=== PATIENT | male | born 1940 | race Caucasian/White ===

== ENCOUNTER → 2016-03-28 | Outpatient (REF) | payer MEDICARE ==
[~2016-03-28] MED LIST: /AMLO25TA PO; /ONDA4TA PO; /PANT40TA PO; ALBU17IN INH; AMLO10TA2 PO; AUGM875T27 PO; CARA1TAB2 PO; CREO24CA PO; FISHCAP PO; FOLI1TAB86 PO; FURO20TA2 PO; GENE10SO PO; IRON CR OD; LASI20TA PO; MAGN250T PO; MEGE400SUS PO; NYST50SS SS; PANT40TA2 PO; PERCOCET PO; POTA20TA PO; PRIL40CA PO; PROP20TA5 PO; SERT-138 PO; SIME40TA PO; SPIR50TA2 PO; THIA100T PO; VITA100T92 PO; VITAMIN D PO; VITATAB11 PO; VITMTA PO; ZYMA0.5S OD; [UNRECOGNIZED DRUG - CODE] INH; [UNRECOGNIZED DRUG - MIXTURE] PO
[2016-03-28 18:32] LABS: ALBUMIN 3.2 GM/DL (3.2-5.2); ALBUMIN/GLOBULIN RATIO 0.65 (1.00-1.93); ALKALINE PHOSPHATASE 86 U/L (45-117); ALT/SGPT 23 U/L (12-78); ANION GAP 7 MEQ/L (8-16); AST/SGOT 28 U/L (15-37); BILIRUBIN,TOTAL 0.7 MG/DL (0.2-1.0); BLOOD UREA NITROGEN 20 MG/DL (7-18); CARBON DIOXIDE LEVEL 29 MEQ/L (21-32); CHLORIDE LEVEL 102 MEQ/L (98-107); CREATININE FOR GFR 1.09 MG/DL (0.70-1.30); GLOMERULAR FILTRATION RATE > 60.0 (>42); GLUCOSE, FASTING 83 MG/DL (83-110); POTASSIUM SERUM 4.1 MEQ/L (3.5-5.1); SODIUM LEVEL 138 MEQ/L (136-145); TOTAL PROTEIN 8.1 GM/DL (6.4-8.2)
[2016-03-28 18:52] LABS: BASO % 0.4 % (0.0-1.0); EOS # 0.5 K/mm3 (0.0-0.50); EOS % 9.4 % (0.0-3.0); LARGE UNSTAINED CELL # 0.1 K/mm3 (0.0-0.4); LARGE UNSTAINED CELL % 1.8 % (0.0-4.0); LYMPH # 1.2 K/mm3 (1.5-4.5); LYMPH % 23.7 % (24.0-44.0); MEAN CORPUSCULAR HEMOGLOBIN 33.1 pg (27.0-33.0); MEAN CORPUSCULAR HGB CONC 33.4 g/dl (32.0-36.5); MEAN CORPUSCULAR VOLUME 99.1 fl (80.0-96.0); MONO # 0.3 K/mm3 (0.0-0.8); MONO % 5.7 % (0.0-5.0); NEUTROPHILS # 2.9 K/mm3 (1.8-7.7); RED CELL DISTRIBUTION WIDTH 14.1 % (11.5-14.5); WHITE BLOOD COUNT 4.9 K/mm3 (4.0-10.0)
[2016-03-28 18:54] LABS: PLATELET COUNT, AUTOMATED 90 k/mm3 (150-450)
== END ==
LOC: M SFHCLERA 15:15
PROVIDERS: ATTEND Family Medicine
DX: K70.30 Alcoholic cirrhosis of liver without ascites (principal); I10 Essential (primary) hypertension
CPT/HCPCS: 80053; 82140; 85025; G0463

== ENCOUNTER → 2016-06-26 | Outpatient (REF) | payer MEDICARE ==
[2016-06-26 18:59] LABS: BASO % 0.7 % (0.0-1.0); EOS # 0.4 K/mm3 (0.0-0.50); EOS % 7.3 % (0.0-3.0); LARGE UNSTAINED CELL # 0.1 K/mm3 (0.0-0.4); LYMPH % 17.9 % (24.0-44.0); MEAN CORPUSCULAR HEMOGLOBIN 35.1 pg (27.0-33.0); MEAN CORPUSCULAR HGB CONC 36.1 g/dl (32.0-36.5); MEAN CORPUSCULAR VOLUME 97.4 fl (80.0-96.0); MONO # 0.3 K/mm3 (0.0-0.8); NEUTROPHILS # 3.7 K/mm3 (1.8-7.7); RED CELL DISTRIBUTION WIDTH 13.8 % (11.5-14.5); WHITE BLOOD COUNT 5.5 K/mm3 (4.0-10.0)
[2016-06-26 19:04] LABS: PLATELET COUNT, AUTOMATED 97 k/mm3 (150-450)
[2016-06-26 19:05] LABS: ALBUMIN 3.2 GM/DL (3.2-5.2); ALBUMIN/GLOBULIN RATIO 0.71 (1.00-1.93); ALKALINE PHOSPHATASE 83 U/L (45-117); ALT/SGPT 25 U/L (12-78); ANION GAP 7 MEQ/L (8-16); AST/SGOT 30 U/L (15-37); BILIRUBIN,TOTAL 0.8 MG/DL (0.2-1.0); BLOOD UREA NITROGEN 12 MG/DL (7-18); CALCIUM LEVEL 8.6 MG/DL (8.8-10.2); CARBON DIOXIDE LEVEL 28 MEQ/L (21-32); CHLORIDE LEVEL 102 MEQ/L (98-107); CREATININE FOR GFR 1.22 MG/DL (0.70-1.30); GLOMERULAR FILTRATION RATE > 60.0 (>42); GLUCOSE, FASTING 88 MG/DL (83-110); POTASSIUM SERUM 4.4 MEQ/L (3.5-5.1); SODIUM LEVEL 137 MEQ/L (136-145); TOTAL PROTEIN 7.7 GM/DL (6.4-8.2)
== END ==
LOC: M SFHCLERA 15:57
PROVIDERS: ATTEND Family Medicine
DX: K70.30 Alcoholic cirrhosis of liver without ascites (principal); I10 Essential (primary) hypertension
CPT/HCPCS: 80053; 82140; 82977; 85025; G0463

== ENCOUNTER → 2017-06-16 | Outpatient (REF) | payer MEDICARE, OTHER ==
[2017-06-16 13:08] LABS: APPEARANCE, URINE CLOUDY (CLEAR); BACTERIA, URINE AUTO NEGATIVE (NEGATIVE); BILIRUBIN, URINE AUTO NEGATIVE (NEGATIVE); BLOOD, URINE BLOOD NEGATIVE (NEGATIVE); COLOR, URINE AMBER (YELLOW); GLUCOSE, URINE (UA) AUTO NEGATIVE (NEGATIVE); KETONE, URINE AUTO NEGATIVE (NEGATIVE); LEUKOCYTE ESTERASE, URINE AUTO NEGATIVE (NEGATIVE); MUCUS, URINE SMALL (NEGATIVE); NITRITE, URINE AUTO NEGATIVE (NEGATIVE); PROTEIN, URINE AUTO NEGATIVE (NEGATIVE); RBC, URINE AUTO 11 /HPF (0-3); SPECIFIC GRAVITY URINE AUTO 1.019 (1.002-1.035); SQUAMOUS EPITHELIAL CELL UR AU 0 /HPF (0-6); WBC, URINE AUTO 3 /HPF (0-3)
== END ==
LOC: M SMT 12:44
DX: N32.89 Other specified disorders of bladder (principal)
CPT/HCPCS: 81001

== ENCOUNTER → 2017-06-25 | Outpatient (REF) | payer MEDICARE, OTHER ==
[2017-06-25 13:58] LABS: APPEARANCE, URINE CLOUDY (CLEAR); BACTERIA, URINE AUTO NEGATIVE (NEGATIVE); BILIRUBIN, URINE AUTO NEGATIVE (NEGATIVE); BLOOD, URINE BLOOD NEGATIVE (NEGATIVE); COLOR, URINE AMBER (YELLOW); GLUCOSE, URINE (UA) AUTO NEGATIVE (NEGATIVE); KETONE, URINE AUTO NEGATIVE (NEGATIVE); LEUKOCYTE ESTERASE, URINE AUTO NEGATIVE (NEGATIVE); MUCUS, URINE SMALL (NEGATIVE); NITRITE, URINE AUTO NEGATIVE (NEGATIVE); PROTEIN, URINE AUTO NEGATIVE (NEGATIVE); RBC, URINE AUTO 4 /HPF (0-3); SPECIFIC GRAVITY URINE AUTO 1.018 (1.002-1.035); SQUAMOUS EPITHELIAL CELL UR AU 0 /HPF (0-6); WBC, URINE AUTO 0 /HPF (0-3)
== END ==
LOC: M SMT 13:14
DX: N32.89 Other specified disorders of bladder (principal); Z79.899 Other long term (current) drug therapy
CPT/HCPCS: 81001

== ENCOUNTER → 2017-09-03 | Outpatient (REF) | payer MEDICARE, OTHER ==
[2017-09-03 18:27] LABS: APPEARANCE, URINE CLOUDY (CLEAR); BACTERIA, URINE AUTO 1+ (NEGATIVE); BILIRUBIN, URINE AUTO NEGATIVE (NEGATIVE); BLOOD, URINE BLOOD 3+ (NEGATIVE); COLOR, URINE AMBER (YELLOW); GLUCOSE, URINE (UA) AUTO NEGATIVE (NEGATIVE); KETONE, URINE AUTO NEGATIVE (NEGATIVE); LEUKOCYTE ESTERASE, URINE AUTO 3+ (NEGATIVE); MUCUS, URINE SMALL (NEGATIVE); NITRITE, URINE AUTO POSITIVE (NEGATIVE); PROTEIN, URINE AUTO 1+ mg/dL (NEGATIVE); RBC, URINE AUTO 58 /HPF (0-3); SPECIFIC GRAVITY URINE AUTO 1.013 (1.002-1.035); SQUAMOUS EPITHELIAL CELL UR AU 0 /HPF (0-6); UROBILINOGEN, URINE AUTO 0.2 mg/dL (0.0-2.0); WBC, URINE AUTO 40 /HPF (0-3)
== END ==
LOC: M SMT 17:16
DX: R82.90 Unspecified abnormal findings in urine (principal)
CPT/HCPCS: 81001

== ENCOUNTER → 2017-09-11 | Outpatient (REF) | payer MEDICARE ==
[2017-09-11 20:01] LABS: BASO # 0.1 10^3/uL (0.0-0.2); BASO % 0.7 % (0.0-1.0); EOS # 0.6 10^3/uL (0.0-0.50); EOS % 6.5 % (0.0-3.0); HEMATOCRIT 35.5 % (42.0-52.0); HEMOGLOBIN 11.6 g/dl (13.5-17.5); IMMATURE GRANULOCYTE % 0.3 % (0-3.0); LYMPH # 1.6 10^3/uL (1.5-4.5); LYMPH % 18.1 % (24.0-44.0); MEAN CORPUSCULAR HEMOGLOBIN 31.4 pg (27.0-33.0); MEAN CORPUSCULAR HGB CONC 32.7 g/dl (32.0-36.5); MEAN CORPUSCULAR VOLUME 95.9 fl (80.0-96.0); MONO # 0.4 10^3/uL (0.0-0.8); MONO % 4.8 % (0.0-5.0); NEUTROPHILS # 6.1 10^3/uL (1.8-7.7); NEUTROPHILS % 69.6 % (36.0-66.0); PLATELET COUNT, AUTOMATED 102 10^3/uL (150-450); RED CELL DISTRIBUTION WIDTH 16.4 % (11.5-14.5); WHITE BLOOD COUNT 8.8 10^3/uL (4.0-10.0)
[2017-09-11 20:18] LABS: ALBUMIN 2.6 GM/DL (3.2-5.2); ALBUMIN/GLOBULIN RATIO 0.52 (1.00-1.93); ALKALINE PHOSPHATASE 72 U/L (45-117); ALT/SGPT 22 U/L (12-78); ANION GAP 9 MEQ/L (8-16); AST/SGOT 27 U/L (7-37); BILIRUBIN,TOTAL 0.9 MG/DL (0.2-1.0); BLOOD UREA NITROGEN 13 MG/DL (7-18); CALCIUM LEVEL 8.8 MG/DL (8.8-10.2); CARBON DIOXIDE LEVEL 27 MEQ/L (21-32); CHLORIDE LEVEL 107 MEQ/L (98-107); CREATININE FOR GFR 1.04 MG/DL (0.70-1.30); GLOMERULAR FILTRATION RATE > 60.0 (>42); GLUCOSE, FASTING 95 MG/DL (70-100); POTASSIUM SERUM 3.8 MEQ/L (3.5-5.1); SODIUM LEVEL 143 MEQ/L (136-145); TOTAL PROTEIN 7.6 GM/DL (6.4-8.2)
[2017-09-11 20:23] LABS: AMMONIA 56 uMOL/L (<32)
[2017-09-11 20:27] LABS: INR 1.28; PROTHROMBIN TIME 16.2 SECONDS (12.1-14.4)
== END ==
LOC: M SFHCLERA 16:46
DX: C22.0 Liver cell carcinoma (principal)
CPT/HCPCS: 82140

== ENCOUNTER → 2017-11-23 | Outpatient (CLI) | payer MEDICARE ==
[2017-11-23 19:08] LABS: BLOOD UREA NITROGEN 9 MG/DL (7-18)
[2017-11-23 19:08] LABS: CREATININE FOR GFR 0.98 MG/DL (0.70-1.30); GLOMERULAR FILTRATION RATE > 60.0 (>42)
== END ==
LOC: M LRY 12:42
DX: C22.0 Liver cell carcinoma (principal)
CPT/HCPCS: 82565

== ENCOUNTER 2018-03-07 01:51 | Inpatient (IN) | payer MEDICARE ==
[2018-03-07] VITALS (26 sets, daily range): BP systolic 77–97; BP diastolic 50–55
[~2018-03-07] VITALS: Ht 172.7 cm; Wt 72.0 kg
[~2018-03-07 01:51] MED LIST changes: +ALDA25TA2 PO; +CARA1TAB6 PO; +EPIP0.3I2 INJ; +MAGN500T2 PO; +MAGN500T5 PO; +PATIENT COMMENT; +PROAAER10 INH; +SPIR-10 PO; +THIA100TA PO; +VITA50005 PO
[2018-03-07 02:39] LABS: BASO % 0.2 % (0.0-1.0); EOS % 0.9 % (0.0-3.0); HEMATOCRIT 29.7 % (42.0-52.0); HEMOGLOBIN 9.5 g/dl (13.5-17.5); LYMPH # 0.5 10^3/uL (1.5-4.5); LYMPH % 11.5 % (24.0-44.0); MEAN CORPUSCULAR HEMOGLOBIN 30.6 pg (27.0-33.0); MEAN CORPUSCULAR VOLUME 95.8 fl (80.0-96.0); MONO % 0.4 % (0.0-5.0); NEUTROPHILS % 86.6 % (36.0-66.0); WHITE BLOOD COUNT 4.6 10^3/uL (4.0-10.0)
[2018-03-07 02:45] LABS: PLATELET COUNT, AUTOMATED 78 10^3/uL (150-450)
[2018-03-07 03:20] LABS: ALBUMIN 1.9 GM/DL (3.2-5.2); ALT/SGPT 13 U/L (12-78); BILIRUBIN,DIRECT 0.6 MG/DL (0.0-0.2); BILIRUBIN,TOTAL 1.5 MG/DL (0.2-1.0); BLOOD UREA NITROGEN 17 MG/DL (7-18); CARBON DIOXIDE LEVEL 23 MEQ/L (21-32); CHLORIDE LEVEL 105 MEQ/L (98-107); CREATININE FOR GFR 1.06 MG/DL (0.70-1.30); GLOMERULAR FILTRATION RATE > 60.0 (>42); GLUCOSE, FASTING 88 MG/DL (70-100); NT-PRO BNP 951 PG/ML (<450); POTASSIUM SERUM 3.5 MEQ/L (3.5-5.1); SODIUM LEVEL 141 MEQ/L (136-145); TOTAL PROTEIN 6.7 GM/DL (6.4-8.2)
[2018-03-07 03:45] LABS: ABG BASE EXCESS -5.8 (-2.0-2.0); ABG HCO3 17.7 MEQ/L (22.0-26.0); ABG O2 SATURATION 98.1 % (95.0-99.0); ABG PARTIAL PRESSURE CO2 28.1 mmHg (35.0-45.0); ABG STANDARD HCO3 19.7 MEQ/L (22.0-26.0); ABG TOTAL CO2 18.5 MEQ/L (23.0-31.0); ABG pH (ARTERIAL) 7.416 UNITS (7.350-7.450)
[2018-03-07] MEDS ORDERED: SPIR-10 PO (03:51)
[2018-03-07] MEDS ORDERED: FOLI1TAB11 PO (03:51)
[2018-03-07] MEDS ORDERED: SERT-155 PO (03:51)
[2018-03-07] MEDS ORDERED: VITMTA PO (03:51)
[2018-03-07] MEDS ORDERED: LACT10SO29 PO (03:52)
[2018-03-07] MEDS ORDERED: VITATAB11 PO (03:52)
[2018-03-07] MEDS ORDERED: ALBU83IN NEB (03:52)
[2018-03-07] MEDS ORDERED: NS 1,000 ML IV ONE ×2 (04:00)
[2018-03-07] MEDS ORDERED: LACTULOSE 20 GM/30 ML SYRUP UD PO ONE (04:45)
[2018-03-07] MEDS ORDERED: HEPARIN SOD (PORCINE) 5000 UNITS/ML VIAL SQ SCH (06:00)
--- NOTE | 2018-03-07 06:08 | ECGEPIP ---
Stationary ECG Study [facility] - ED Test Date: 2018-03-07 Pat Name: RADHA DUARTE Department: Room: - Gender: M Can Marker: zulema : 1940 Requested By: MYRNA QUIROZ Order Number: [id number] Reading MD: Miah Jean Measurements Intervals Violet Rate: 122 P: NH: 0 QRS: 15 QRSD: 69 T: 0 QT: 109 QTc: 155 Interpretive Statements ATRIAL FIBRILLATION WITH RAPID VENTRICULAR RESPONSE LOW QRS VOLTAGE MINIMAL ST DEPRESSION Electronically Signed On 03-07-2018 6:07:26 EST by Miah Jean
[2018-03-07] MEDS ORDERED: IPRATROPIUM 0.5MG/ALBUTEROL 2.5MG INH SOL UD 3ML (DUONEB)(J7620) NEB PRN (07:15)
--- NOTE | 2018-03-07 07:28 | HPEPDOC ---
[facility] Medical History & Physical Date of Admission Mar 07, 2018 Attending Physician: OK CERVANTES MD History and Physical PRIMARY CARE PROVIDER: [facility] ATTENDING: Dr. Cervantes. CHIEF COMPLAINT: SOB HISTORY OF PRESENT ILLNESS: Patient is a 77-year-old male with past medical history of hepatocellular carcinoma 2/2 liver cirrhosis, presents with chief complaint of a four day history of progressively worsening shortness of breath with associated yellow-green sputum production. States he has COPD and is on oxygen at home but doesn't know how much. Currently states he is feeling better. No desaturations in the emergency department. He denies any fevers, chills, hemoptysis, headache, dizziness, vision changes, sore throat, swelling in his neck, chest pain, abdominal pain, nausea, constipation. He admits to chronic diarrhea from his lactulose. He also admits to small amounts of emesis following meals. Patient is able to answer simple questions with ease but when pressed for more information defers to his as he cannot remember, questioning if he is poor historian. Per ED staff, he had an abdominal paracentesis recently, but he claims he has not had one for at least 6 months. PAST MEDICAL HISTORY: HTN recurrent GI bleed acute hepatitis 2/2 EtOH abuse causing cirrhosis and ascites AAA COPD on oxygen at home Depression Hypercholesterolemia chronic pancreatitis gout PAST SURGICAL HISTORY: Paracentesis esophageal banding tonsillectomy AAA endovascular repair w/ 4 stents SOCIAL HISTORY: Lives with his . Quit smoking 26 years ago. Has been sober for 15 weeks. Denies illicit drug use. FAMILY HISTORY: Non-contributory ALLERGIES: Please see below. REVIEW OF SYSTEMS: GENERAL: Denies fevers, chills, recent unexpected weight change, hemoptysis HEENT: Denies headache, dizziness, vision changes, hearing loss, sore throat CARDIOVASCULAR: Denies chest pain,palpitations, orthopnea RESPIRATORY: Admits to shortness of breath, denies wheezing. Admits to cough productive of yellow/green sputum. GASTROINTESTINAL: Admits to chronic diarrhea. Non bloody stool. Admits to emesis the past few days. Denies nausea or abdominal pain. GENITOURINARY: Admits to urinary hesitancy and initiation of urine. MUSCULOSKELETAL: Denies muscle/joint pain, weakness, stiffness NEUROLOGICAL: Denies any numbness/tingling, focal weakness, or syncope HOME MEDICATIONS: Please see below. PHYSICAL EXAMINATION: Vitals: (see below) General: Appears older than stated age, sickly appearing. No acute distress, laying comfortably in bed. HEENT: Normocephalic, atraumatic. EOMI. Moist mucous membranes.Sclera non- icteric. Very poor dentition. Neck: No JVD or lymphadenopathy. Cardiac: Distant heart sounds. RRR, Normal s1 and s2. No murmurs Pulm: Breath sounds diminished bilaterally. No wheezing, crackles, or rhonchi appreciated on auscultation. Abd: Grossly distended. Spider angiomata present in central abdomen. Non-tense. Soft, non-tender, no guarding, rebound tenderness, or rigidity. BS present Ext: No edema or cyanosis. Multiple hematomas/bruising present on extremities. Skin is warm with normal turgor. Neuro: Alert and oriented x3. Strength 5/5 BUE and BLE. CN 3-12 grossly intact. Sensation to fine touch intact. LABORATORY DATA: See below. IMAGING: CXR has still not been read but concerning for possible RLL infiltrate vs R pleural effusion MICROBIOLOGY: Please see below. ASSESSMENT/PLAN: 77-year-old male presenting with possible pneumonia versus fluid overload from his cirrhosis #. SOB Given the patient's questionable chest x-ray and symptoms we will cover empirically for right lower lobe pneumonia with Levaquin, we are also obtaining a chest CT to further differentiate between infection and effusion Blood cultures pending, sputum culturing and gram stain pending Titrating oxygen requirements, Ruddy's available Patient also claims that his hepatocellular carcinoma is cured, however he does not know what was done so this is questionable and may be linked to his shor tness of breath via metastatic disease. #. Liver cirrhosis Doubling his dose of lactulose We will defer to the day team for possible abdominal paracentesis Continue home spironolactone #. Lactic acidosis Could be secondary to cirrhosis, patient is on antibiotics and received 2 L of IV fluid in the emergency department No white blood cell count, obtaining blood cultures, chest CT, urinalysis to rule out infection as source, but given patients cirrhosis we are holding off on giving more fluid. #. Elevated BNP Obtaining echocardiogram #. Depression Continue home medications #. Hypertension Stable -DVT prophy: heparin Vital Signs Vital Signs Date Time Temp Pulse Resp B/P (MAP) Pulse Ox O2 Delivery O2 Flow Rate FiO2 03/07/18 06:50 101/51 (68) 03/07/18 06:45 117 16 97 Room Air 03/07/18 02:00 99.3 Laboratory Data Labs 24H Laboratory Tests 2 03/07/18 02:33: Immature Granulocyte % (Auto) 0.4, White Blood Count 4.6, Red Blood Count 3.10L, Hemoglobin 9.5L, Hematocrit 29.7L, Mean Corpuscular Volume 95.8, Mean Corpuscular Hemoglobin 30.6, Mean Corpuscular Hemoglobin Concent 32.0, Red Cell Distribution Width 16.9H, Platelet Count 78L, Neutrophils (%) (Auto) 86.6H, Lymphocytes (%) (Auto) 11.5L, Monocytes (%) (Auto) 0.4, Eosinophils (%) (Auto) 0.9, Basophils (%) (Auto) 0.2, Neutrophils # (Auto) 4.0, Lymphocytes # (Auto) 0.5L, Monocytes # (Auto) 0.0, Eosinophils # (Auto) 0.0, Basophils # (Auto) 0.0, Nucleated Red Blood Cells % (auto) 0.0, Immature Platelet Fraction 2.1, Anion Gap 13, Glomerular Filtration Rate > 60.0, Lactic Acid Level 6.7*H, Calcium Leve l 8.0L, Aspartate Amino Transf (AST/SGOT) 24, Alanine Aminotransferase (ALT/SGPT) 13, Alkaline Phosphatase 62, Total Bilirubin 1.5H, Direct Bilirubin 0.6H, Ammonia 67H, FS-Tse-C-Type Natriuretic Peptide 951H, Total Protein 6.7, Albumin 1.9L, Albumin/Globulin Ratio 0.40L 03/07/18 03:18: Blood Gas Bicarbonate Standard 19.7L, Arterial Blood pH 7.416, Arterial Blood Partial Pressure CO2 28.1L, Arterial Blood Partial Pressure O2 116.0H, Arterial Blood Total CO2 18.5L, Arterial Blood HCO3 17.7L, Arterial Blood Base Excess - 5.8L, Arterial Blood Oxygen Saturation 98.1 CBC/BMP Laboratory Tests 03/07/18 02:33 Red Blood Count 3.10 L, Mean Corpuscular Volume 95.8, Mean Corpuscular Hemoglobin 30.6, Mean Corpuscular Hemoglobin Concent 32.0, Red Cell Distribution Width 16.9 H, Neutrophils (%) (Auto) 86.6 H, Lymphocytes (%) (Auto) 11.5 L, Monocytes (%) (Auto) 0.4, Eosinophils (%) (Auto) 0.9, Basophils (%) (Auto) 0.2, Neutrophils # (Auto) 4.0, Lymphocytes # (Auto) 0.5 L, Monocytes # (Auto) 0.0, Eosinophils # (Auto) 0.0, Basophils # (Auto) 0.0 Home Medications Scheduled (Sertraline HCl) 50 Mg Tab, 150 MG PO DAILY B1/B2/B3/B5/B6 (Vitamin B Complex) 1 Tab Tab, 1 TAB PO DAILY Ergocalciferol (Vitamin D) 50,000 Unit Cap, 50,000 UNIT PO 1XWK DOES NOT HAVE A SPECIFIC DAY TO TAKE Folic Acid (Folic Acid) 1 Mg Tab, 1 MG PO DAILY Lactulose (Lactulose) 10 Gm/15 Ml Tyra, 15 ML PO DAILY Multivitamins *[facility] STOCKED* (Thera M Plus *[facility] STOCKED*) 1 Tab Tab, 1 TAB PO DAILY Spironolactone (Spironolactone) 25 Mg Tab, 12.5 MG PO DAILY Sucralfate (Carafate) 1 Gm Tab, 1 GM PO Q6H Scheduled PRN (Epipen 2-Manny) 0.3 Mg/0.3 Ml Inj, 0.3 MG INJ ASDIRECTED PRN for ANAPHYLAXIS Albuterol Sulfate (Proair Hfa) 108 Mcg/Act Aer, 1 PUFF INH Q4H PRN for SHORTNESS OF BREATH Albuterol Sulfate (Albuterol Sulfate) 2.5 Mg/3 Ml Nebu, 1 VIAL NEB Q4HP PRN for wheezing Allergies Coded Allergies: Bee Venom (Verified Allergy, Unknown, SWELLING AND DIFFICULTY BREATHING, 05/13/17) Contrast Media (Verified Allergy, Unknown, 05/13/17) GME ATTESTATION GME ATTESTATION My faculty preceptor for this patient encounter was physically present during the encounter and was fully available. All aspects of the patient interview, examination, medical decision making process, and medical care plan development were reviewed and approved by the faculty preceptor. The faculty preceptor is aware and concurs with the plan as stated in the body of this note and will attest to such by his/her cosignature. ATTENDING NOTE I have both independently examined this patient as well as reviewed H and P. I have discussed in detail with the resident the findings and plan of treatment as documented in the residents note. MITA BROOKS DO Mar 07, 2018 07:28 OK CERVANTES MD Mar 08, 2018 20:24
[2018-03-07] MEDS: LACTULOSE 20 GM/30 ML SYRUP UD PO SCH ×2 (07:31→20:22)
[2018-03-07] MEDS: SUCRALFATE 1 GM TAB PO SCH ×3 (07:40→18:09)
[2018-03-07] MEDS: FOLIC ACID 1 MG TAB PO SCH (07:40)
[2018-03-07] MEDS: MULTIVITAMINS/MINERALS THERAP 1 TAB PO SCH (07:40)
[2018-03-07] MEDS: SERTRALINE HCL 50 MG TAB PO SCH (07:40)
[2018-03-07] MEDS ORDERED: LevoFLOXacin IV 500 MG in APPROPRIATE DILUENT 1 EA IV SCH (08:00)
[2018-03-07] MEDS: IPRATROPIUM 0.5MG/ALBUTEROL 2.5MG INH SOL UD 3ML (DUONEB)(J7620) NEB SCH ×3 (08:00→20:02)
--- NOTE | 2018-03-07 08:10 | REP ---
Chest one-view HISTORY: Shortness of breath Comparison: 05/15/2017 The lateral aspect of the right hemithorax is not seen. A small right pleural effusion is present increased compared to the previous study. Increased density is present in the right lower lobe consistent with atelectasis or infiltrate. The left lung is clear. The heart is normal in size. The pulmonary vasculature is normal in appearance. Impression: 1. Small right pleural effusion increased compared to the previous study. 2. Right lower lobe atelectasis or infiltrate. Electronically Signed by Tello Betancourt MD 03/07/2018 08:01 A
[2018-03-07 08:12] LABS: C REACTIVE PROTEIN QUANTITATIV 3.01 MG/DL (0.00-0.30)
[2018-03-07 08:14] LABS: INR 1.68; PROTHROMBIN TIME 20.1 SECONDS (12.1-14.4)
[2018-03-07] MEDS ORDERED: POTASSIUM CHLORIDE 10 MEQ SR TABLET PO ONE (08:15)
--- NOTE | 2018-03-07 08:25 | REPVR ---
EXAM: CT Chest Without Contrast EXAM DATE/TIME: 03/07/2018 6:42 AM CLINICAL HISTORY: 77 years old, male; Signs and symptoms; Shortness of breath; Additional info: SOB, fluid overload vs infiltrate TECHNIQUE: Axial computed tomography images of the chest without intravenous contrast. All CT scans at this facility use at least one of these dose optimization techniques: automated exposure control; mA and/or kV adjustment per patient size (includes targeted exams where dose is matched to clinical indication); or iterative reconstruction. Coronal and sagittal reformatted images were created and reviewed. MIP reconstructed images were created and reviewed. COMPARISON: CT Chest without contrast 05/13/2017 8:51 PM FINDINGS: Lungs: There is large right lower lobe pleural effusion with overlying atelectasis versus infiltrate. There are a few nonspecific scattered areas of faint ground glass opacities. Pleural space: Normal. No pneumothorax. No pleural effusion. Heart: There is severe coronary vascular calcifications. The ascending thoracic aorta is upper normal in size measuring 4 cm. The aortic normal in caliber. There is severe thoracic aortic mural calcifications. Aorta: The liver is atrophic with nodular contour. There is a 4.6 x 3.1 cm right hepatic lobe hypodense mass. The partially imaged and appear to be enlarged. There is a large effusion within the partially imaged upper abdomen. The partially imaged gallbladder contains a gallstone. There is dilated or recanalized umbilical vein in the falciform ligament. Lymph nodes: Unremarkable. No enlarged lymph nodes. Bones/joints: There is bony osteopenia. Soft tissues: See Aorta Finding. IMPRESSION: 1. Large right-sided pleural effusion with overlying total atelectasis of the lower lobe. Underlying infectious etiology cannot be excluded. 2. Nonspecific few scattered areas of faint ground glass haziness could be secondary to subsegmental atelectasis, or alveolar inflammatory material versus fluid/alveolitis. 3. Severe aortic and coronary vascular calcifications. 4. Cirrhotic liver with large abdominal ascites, likely splenomegaly and recanalized umbilical vein. 5. 4.6 x 3.1 cm right hepatic lobe mass suspicious for HCC in a patient with cirrhosis. 6. Gallstone in the partially imaged gallbladder neck. Electronically signed by: Ranulfo Thomas On 03/07/2018 08:25:30 AM
[2018-03-07 08:26] LABS: C REACTIVE PROTEIN QUANTITATIV 2.88 MG/DL (0.00-0.30); CPK CREATINE PHOSPHOKINASE 108 U/L (39-308); MB/CK RELATIVE INDEX 1.85 (< OR =4); NT-PRO BNP 1401 PG/ML (<450); TROPONIN I < 0.02 NG/ML (< 0.10)
[2018-03-07] MEDS ORDERED: SPIRONOLACTONE 12.5MG PER 1/2 TABLET PO SCH (09:00)
--- NOTE | 2018-03-07 10:10 | REP ---
CT ABDOMEN/PELVIS WITHOUT CONTRAST: HISTORY: Abdominal distention. COMPARISON: 05/13/2017 The liver is irregular in contour. Two ill-defined hypodensities, 2.6 and 2.7 cm in width are present in the liver. Calcifications are present in the left kidney, consistent with nephrolithiasis. The gallbladder is small in size. Calcifications are present in the gallbladder, consistent with cholelithiasis. The spleen is upper limits of normal in size. The pancreas, adrenal glands, and right kidney are normal in appearance. A large amount of ascites is present. There is no adenopathy. The patient is status post stenting of abdominal aortic aneurysm. Parenchymal density is present in the right lower lobe consistent with atelectasis or infiltrate. A right pleural effusion is present. The urinary bladder wall is thickened and contains calcifications. The prostate gland is enlarged. Diverticula are present in the sigmoid colon. Degenerative change is present in the spine. IMPRESSION: 1. The liver is irregular in contour, consistent with cirrhosis. 2. There are two ill-defined hypodensities in the liver suspicious for metastases. 3. Cholelithiasis. 4. Left nephrolithiasis. 5. There is a large amount of ascites in the abdomen and pelvis. 6. Right lower lobe atelectasis or infiltrate and right pleural effusion. 7. There is thickening of the urinary bladder wall which contains calcifications. This may be secondary to inflammation or possibly neoplasm. 8. Diverticulosis. Electronically Signed by Tello Betancourt MD 03/07/2018 11:13 A
--- NOTE | 2018-03-07 10:33 | REP ---
Chest one-view HISTORY: Central line placement Comparison: 04/27 a.m. 03/07/2018 Parenchymal density is present in the right lower lobe consistent with atelectasis or infiltrate. A small right pleural effusion is present. The left lung is clear. The heart is normal in size. The pulmonary vasculature is normal in appearance. A central line is present in the superior vena cava. Impression: 1. Right lower lobe atelectasis or infiltrate unchanged compared to the previous study. 2. Small right pleural effusion unchanged compared to the previous study. 3. The patient is status post central line placement in the superior vena cava. Electronically Signed by Tello Betancourt MD 03/07/2018 10:26 A
[2018-03-07] MEDS: PANTOPRAZOLE 40MG INJ (PROTONIX) (C9113) IV SCH ×2 (10:51→20:23)
[2018-03-07] MEDS: cefTRIAXone SOD 2 GM in D5W MINI-BAG PLUS 50 ML IV SCH (10:53)
[2018-03-07] MEDS ORDERED: AZITHROMYCIN INJ 500 MG, VIAL MATE ADAPTER 1 EACH in D5W 250 ML IV SCH (11:00)
[2018-03-07] MEDS: VITAMIN B COMPLEX/VIT C CAP PO SCH (11:55)
[2018-03-07 12:26] LABS: AMORPHOUS SEDIMENT LARGE (NEGATIVE); APPEARANCE, URINE TURBID (CLEAR); BACTERIA, URINE AUTO 3+ (NEGATIVE); BILIRUBIN, URINE AUTO NEGATIVE (NEGATIVE); BLOOD, URINE BLOOD 2+ (NEGATIVE); COLOR, URINE YELLOW (YELLOW); GLUCOSE, URINE (UA) AUTO NEGATIVE (NEGATIVE); KETONE, URINE AUTO NEGATIVE (NEGATIVE); LEUKOCYTE ESTERASE, URINE AUTO 2+ (NEGATIVE); MUCUS, URINE MODERATE (NEGATIVE); NITRITE, URINE AUTO NEGATIVE (NEGATIVE); PROTEIN, URINE AUTO 2+ mg/dL (NEGATIVE); RBC, URINE AUTO 84 /HPF (0-3); SPECIFIC GRAVITY URINE AUTO 1.015 (1.002-1.035); SQUAMOUS EPITHELIAL CELL UR AU 0 /HPF (0-6); UROBILINOGEN, URINE AUTO 0.2 mg/dL (0.0-2.0); WBC, URINE AUTO TNTC /HPF (0-3)
[2018-03-07 14:19] LABS: HEMATOCRIT 20.5 % (42.0-52.0)
--- NOTE | 2018-03-07 14:20 | ECHO ---
DATE OF SERVICE: 03/07/2018 REFERRING PROVIDER: Dr. Sobeida Donovan PATIENT LOCATION: Room 3208 REASON FOR ECHOCARDIOGRAM: Shortness of breath. 2D MEASUREMENTS: IVS: 1.0 cm LV: 4.0 cm LVPW: 1.0 cm LA: 3.7 cm Aorta: 2.9 cm DOPPLER MEASUREMENTS: Peak velocity across the aortic valve: 1.2 m/s Peak velocity across the LVOT: 0.87 m/s Mitral E: 0.58 Mitral A: 0.77 with a ratio of 0.8 2D COMMENTS: 1. Technically limited study due to poor acoustic window. 2. Only subcostal views were taken and the measurements were done in the subcostal views. 3. Normal left ventricular size, wall thickness, and low normal global left ventricular systolic function estimated at 55-60%. 4. The left atrium subjectively appeared to mildly enlarged. The right atrium and right ventricle also subjectively appeared to be minimally enlarged. 5. The atrial septum seems to be normal without evidence of defect or shunt. 6. Normal aortic root. 7. Bilateral pleural effusion noted. There was also a small amount of fluid around the liver consistent with accumulation of fluid in the abdomen, ascites. No definitive pericardial effusion noted. 8. Mildly calcified aortic valve with normal leaflet excursion. Mildly calcified mitral annulus with normal anterior mitral valve leaflet motion. Normal tricuspid valve. The pulmonic valve and proximal pulmonary artery branches were not well visualized. 9. The inferior vena cava was not well visualized. DOPPLER: No significant valvular abnormalities detected. Abnormal relaxation pattern was noted across the mitral valve leaflets consistent with delayed relaxation. IMPRESSION: 1. Low normal global left ventricular systolic function. There were some features of left ventricular diastolic dysfunction manifested by abnormal relaxation. 2. Pleural effusion was noted. Ascites also was noted. 3. Subjectively, the left atrium appeared to be mildly enlarged. 4. No valvular abnormalities detected. MTDD
[2018-03-07 14:47] LABS: MB/CK RELATIVE INDEX 1.09 (< OR =4); TROPONIN I 0.03 NG/ML (< 0.10)
[2018-03-07 14:49] LABS: HEMOGLOBIN 6.5 g/dl (13.5-17.5)
[2018-03-07] MEDS: VANCOMYCIN ORAL SOL 250MG/5ML ORAL SYRINGE PO SCH ×2 (14:56→18:09)
[2018-03-07] MEDS: LACTOBACILLUS ACIDOPHILUS CAP (BACID) PO SCH ×2 (15:48→20:24)
--- NOTE | 2018-03-07 15:57 | ECGEPIP ---
Stationary ECG Study [facility] Test Date: 2018-03-07 Pat Name: RADHA DUARTE Department: Room: [place] [address] Gender: M Ip Paralegal: dafne : 1940 Requested By: OK BUSTAMANTE Order Number: [id number] Reading MD: Andre Abreu Measurements Intervals Teller Rate: 107 P: ME: 0 QRS: 28 QRSD: 74 T: 58 QT: 341 QTc: 457 Interpretive Statements ATRIAL FIBRILLATION WITH RAPID VENTRICULAR RESPONSE LOW QRS VOLTAGE POSSIBLE ANTERIOR MYOCARDIAL INFARCTION, PROBABLY OLD Electronically Signed On 03-07-2018 15:57:30 EST by Andre Abreu
[2018-03-07 17:50] LABS: PERCENT SATURATION 25.6 % (19.7-50.0)
[2018-03-07] MEDS: OCTREOTIDE ACETATE 1,200 MCG in NS 238.8 ML IV SCH (18:13)
--- NOTE | 2018-03-07 21:04 | IPN ---
DATE: 03/07/2018 Critical care time was 60 minutes, exclusive of procedures. CHIEF COMPLAINT: Shortness of breath. PRIMARY CARE PROVIDER: Cely Arzate HISTORY OF PRESENT ILLNESS: This is a 77-year-old male patient who is retired from the [employer] and has a history of tobacco abuse, smoked six packs per day for many years, quit about 20 years ago, also drinks heavily, also quit 20 years ago. Has a history of hepatocellular carcinoma secondary to liver cirrhosis, was treated with chemotherapy and as per patient was in remission, hypertension, recurrent gastrointestinal bleed, acute hepatitis secondary to alcohol abuse, cirrhosis and ascites, abdominal aortic aneurysm, chronic obstructive pulmonary disease (COPD) on home oxygen 2 liters, depression, dyslipidemia, chronic pancreatitis and gout, presented with a 4 day history of progressively worsening shortness of breath, coughing productive of green phlegm. Denies any fevers or chills. Denies any sick contacts. Denies any sore throat. Reported generalized weakness. Reported diarrhea. The patient was admitted overnight. This morning, the patient was hypotensive with persistent diarrhea. Albumin boluses were ordered. Triple lumen central line was placed at bedside. GI panel has also been ordered, as well as a repeat hemoglobin and hematocrit, given the patient looks pale. Packed red blood cell transfusion was ordered. Respiratory panel has been negative. Chest x-ray appreciated, as well as CT of the chest and CT of the abdomen. The patient has mild ascites with also large right sided pleural effusion. Central venous pressure was noted to be 9. Colloid resuscitation was implemented. The patient's lactic acid was followed. The patient was initially started on Rocephin and Zithromax, but given the patient's UA is positive and pulmonary examination is pressure benign, the patient was continued on Rocephin. GI panel was positive for Clostridium (C.) difficile. The patient was started on vancomycin orally and probiotics. Given anemia, the patient was empirically started on octreotide and Protonix IV twice a day. The patient had no nausea and no vomiting, no other evidence of massive gastrointestinal bleed. Clear liquid diet was maintained. We will consult Dr. Ortiz in the morning. Deep vein thrombosis (DVT) prophylaxis, heparin subcutaneously was discontinued. Furthermore, in the emergency department, the patient initially was found to be tachycardic with questionable atrial fibrillation with poor quality EKG, but given the patient's hypotension, we will not beta block the patient. Furthermore, given the patient has a history of recurrent gastrointestinal bleed and severe cirrhosis, we will not put the patient on any anticoagulation. VITAL SIGNS: Temperature 99.4, pulse 88, respirations 18, blood pressure 82/51, pulse oximetry 96% on 1 liter nasal cannula. LABORATORY: WBC 4.6, hemoglobin and hematocrit initially 9.5/29.7, repeat after 3 units of albumin is 6.5/20.5. Platelets 78. Chemistry: Sodium 141, potassium 3.5, chloride 105, bicarbonate 28, BUN 17, creatinine 1.06, lactic acid 6.7 initially, repeat is 3.3 and 3.8, we will continue to trend. Cardiac enzymes negative times two. PHYSICAL EXAMINATION: GENERAL: The patient is alert, pale, in no acute distress. Conversational. HEENT: Normocephalic, atraumatic. PULMONARY: Diminished breath sounds in the right lower base. No wheeze. CARDIAC: Regular. S1, S2. ABDOMEN: Distended, caput medusae, spider angioma. No rebound or guarding. Positive bowel sounds. EXTREMITIES: No clubbing, cyanosis or edema. ASSESSMENT AND PLAN: This is a 77-year-old male patient with underlying medical history of hypertension, recurrent gastrointestinal bleed, abdominal aortic aneurysm, acute hepatitis secondary to alcohol abuse causing cirrhosis and ascites, chronic obstructive pulmonary disease (COPD) on home oxygen, depression, gastroesophageal reflux disease (GERD), chronic pancreatitis, gout, with also hepatocellular carcinoma, treated, presented with shortness of breath and found to have worsening cirrhosis, hypotension, anemia, thrombocytopenia, pleural effusion and worsening ascites, and also found to have Clostridium (C.) difficile. 1. Clostridium (C.) difficile colitis. Vancomycin, probiotics, supportive care. Given severe ascites, we will implement colloid fluid resuscitation. Initially given IV fluids overnight. Supportive care. 2. Hypotension, possibly secondary to C. Difficile colitis versus urinary tract infection (UTI). Triple lumen central line was placed. Was given IV fluids overnight. Will be given albumin a total of 5/25 gram/units, as well as 2 units of packed red blood cells. Followup central venous pressure. Pressors, Levophed, as needed. 3. Shortness of breath, likely secondary to pleural effusion and severe ascites. Avoid fluid overload. Unable to diurese at this time given hypotension. Once blood pressure stabilizes with fluid resuscitation, we will do thoracentesis and paracentesis, likely does not have pneumonia given respiratory symptoms are minimal and have improved. Respiratory panel has been negative. 4. Urinary tract infection (UTI). Continue Rocephin. Followup cultures. 5. Anemia and thrombocytopenia, likely anemia due to dilutional versus secondary to gastrointestinal bleed. Followup anemia workup, including fecal occult. The patient has no active signs of bleeding at this point. No nausea. No vomiting. We will empirically start octreotide and Protonix. We will consult Dr. Ortiz in the morning. Transfuse 2 units of packed red blood cells. Repeat hemoglobin and hematocrit. 6. Lactic acidosis. Likely secondary to hypotension, improved. We will continue to monitor. 7. Remote history of alcohol abuse with subsequent cirrhosis, ascites. Vitamins as prescribed. Supportive care with albumin. Holding codeine, aldactone given the patient's hypotensive. We will monitor bowel movements. The patient will benefit from Lactulose, but we will hold it if the patient has greater than four bowel movements daily. Will need paracentesis. Continue Rocephin. 8. Thrombocytopenia secondary to cirrhosis. Supportive care. 9. Coagulopathy secondary to cirrhosis and liver failure. Supportive care. Monitor for bleeding. 10. History of chronic obstructive pulmonary disease (COPD). Continue home oxygen. The patient currently does not have any wheeze. Nebulizer treatments as needed. 11. Chronic pancreatitis. The patient does not have any abdominal pain at this point. 12. Depression, supportive care. Outpatient followup. The patient does not appear depressed. 13. Deep vein thrombosis (DVT) prophylaxis. Thromboembolic compression stockings (TEDS) and sequentials. Nonpharmacological agents given history of recurrent gastrointestinal bleed. 14. Questionable atrial fibrillation. Likely sinus tachycardia, but the patient currently is back in sinus. We will repeat EKG in the morning. We will not perform any anticoagulation given the patient with advanced liver disease, coagulopathy and history of recurrent gastrointestinal bleed. Supportive care. DISPOSITION: We will consult GI in the morning. Continue treatment for C difficile. Will eventually need paracentesis and thoracentesis once blood pressure stabilizes. Poor long-term prognosis. Critical care time, excludes all procedures, 60 minutes.
[2018-03-08] VITALS (60 sets, daily range): BP systolic 79–128; BP diastolic 47–72
[2018-03-08] MEDS: SUCRALFATE 1 GM TAB PO SCH ×4 (00:17→17:13)
[2018-03-08] MEDS: VANCOMYCIN ORAL SOL 250MG/5ML ORAL SYRINGE PO SCH ×4 (00:17→17:13)
[2018-03-08 00:38] LABS: HEMATOCRIT 23.7 % (42.0-52.0); HEMOGLOBIN 7.9 g/dl (13.5-17.5)
[2018-03-08] MEDS ORDERED: SODIUM CHLORIDE 0.9% INJ 10 ML SYR IV PRN (01:15)
[2018-03-08] MEDS: IPRATROPIUM 0.5MG/ALBUTEROL 2.5MG INH SOL UD 3ML (DUONEB)(J7620) NEB SCH ×4 (02:17→20:12)
[2018-03-08 04:03] LABS: HEMATOCRIT 23.1 % (42.0-52.0); HEMOGLOBIN 7.7 g/dl (13.5-17.5); MEAN CORPUSCULAR HEMOGLOBIN 30.7 pg (27.0-33.0); MEAN CORPUSCULAR HGB CONC 33.3 g/dl (32.0-36.5); RED BLOOD COUNT 2.51 10^6/uL (4.30-6.10)
[2018-03-08 04:05] LABS: PLATELET COUNT, AUTOMATED 31 10^3/uL (150-450)
[2018-03-08 04:12] LABS: INR 2.22
[2018-03-08 04:32] LABS: ALBUMIN 2.2 GM/DL (3.2-5.2); ALT/SGPT 11 U/L (12-78); BILIRUBIN,TOTAL 2.1 MG/DL (0.2-1.0); BLOOD UREA NITROGEN 18 MG/DL (7-18); C REACTIVE PROTEIN QUANTITATIV 5.87 MG/DL (0.00-0.30); CALCIUM LEVEL 7.2 MG/DL (8.8-10.2); CARBON DIOXIDE LEVEL 24 MEQ/L (21-32); CHLORIDE LEVEL 108 MEQ/L (98-107); CREATININE FOR GFR 1.02 MG/DL (0.70-1.30); GLOMERULAR FILTRATION RATE > 60.0 (>42); GLUCOSE, FASTING 173 MG/DL (70-100); MAGNESIUM LEVEL 1.4 MG/DL (1.8-2.4); SODIUM LEVEL 139 MEQ/L (136-145); TOTAL PROTEIN 5.1 GM/DL (6.4-8.2)
[2018-03-08] MEDS ORDERED: NOREPINEPHRINE BITARTRATE 8 MG in D5W 492 ML IV SCH (05:00)
[2018-03-08] MEDS: SODIUM CHLORIDE 0.9% INJ 10 ML SYR IV SCH ×3 (05:48→22:00)
[2018-03-08] MEDS ORDERED: POTASSIUM CHLORIDE 10 MEQ SR TABLET PO ONE ×2 (06:00→18:00)
--- NOTE | 2018-03-08 06:40 | RO ---
DATE OF PROCEDURE: 03/07/2018 PREPROCEDURE DIAGNOSIS: Hypotension. POSTPROCEDURE DIAGNOSIS: Hypotension. PROCEDURE: Right internal jugular (IJ) triple lumen central line. SURGEON: Dr. Sobeida Donovan. MANAGER WHOLESALE: None. SEDATION: None. ANESTHETIC: 1% local lidocaine. VENTILATION: 2 liters nasal cannula. ESTIMATED BLOOD LOSS: 10 mL. Consent was obtained. Risks and benefit explained. Patient was placed in supine position. The right side of patient's neck was cleaned with ChloraPrep and patient was covered in the usual manner. Ultrasound probe with sterile probe cover was used to find patient's right internal jugular vein. Subsequently 1% local lidocaine was injected subcutaneously with ultrasound guidance. Introducer needle was inserted with ultrasound guidance. Blood return was obtained and wire was threaded through the introducer needle. Wire position was confirmed with ultrasound. Subsequently site is dilated and triple lumen central line was inserted over guidewire via Seldinger technique and guidewire was removed. All three port of triple lumen central line was flushed with normal saline and clamped and triple lumen central line was secured with stitches and dressing was placed. X-ray was ordered for confirmation. Patient tolerated the procedure with no complication.
[2018-03-08] MEDS: MAG SULF 1GM/100ML (MAG RUN) 1 GM in APPROPRIATE DILUENT 1 EA IV SCH ×2 (07:55→10:47)
[2018-03-08] MEDS: MULTIVITAMINS/MINERALS THERAP 1 TAB PO SCH (08:01)
[2018-03-08] MEDS: PANTOPRAZOLE 40MG INJ (PROTONIX) (C9113) IV SCH ×2 (08:01→20:04)
[2018-03-08] MEDS: LACTOBACILLUS ACIDOPHILUS CAP (BACID) PO SCH ×3 (08:01→20:04)
[2018-03-08] MEDS: SERTRALINE HCL 50 MG TAB PO SCH (08:01)
[2018-03-08] MEDS: FOLIC ACID 1 MG TAB PO SCH (08:01)
[2018-03-08] MEDS: LACTULOSE 20 GM/30 ML SYRUP UD PO SCH ×2 (08:01→20:05)
[2018-03-08] MEDS: VITAMIN B COMPLEX/VIT C CAP PO SCH (08:01)
[2018-03-08] MEDS ORDERED: PHYTONADIONE 5 MG TAB PO SCH (09:00)
[2018-03-08 10:10] LABS: FOLATE 6.2 NG/ML
[2018-03-08] MEDS: cefTRIAXone SOD 2 GM in D5W MINI-BAG PLUS 50 ML IV SCH (10:48)
[2018-03-08 11:01] LABS: VITAMIN B12 LEVEL 1610 PG/ML
--- NOTE | 2018-03-08 11:21 | REP ---
Chest one-view HISTORY: Pleural effusion Comparison: 03/07/2018 Parenchymal density is present in the right lower lobe consistent with atelectasis or infiltrate unchanged compared to the previous study. A small right pleural effusion is present unchanged compared to the previous study. The left lung is clear. The heart is normal in size. The pulmonary vasculature is normal in appearance. A central line is present. Impression: 1. Right lower lobe atelectasis or infiltrate unchanged compared to the previous study. 2. Small right pleural effusion unchanged compared to the previous study. Electronically Signed by Tello Betancourt MD 03/08/2018 11:14 A
[2018-03-08] MEDS: OCTREOTIDE ACETATE 1,200 MCG in NS 238.8 ML IV SCH (14:30)
[2018-03-08] MEDS ORDERED: FUROSEMIDE 40 MG/4 ML VIAL (J1940) IV ONE (15:45)
[2018-03-08 17:21] LABS: HEMATOCRIT 28.8 % (42.0-52.0); HEMOGLOBIN 9.8 g/dl (13.5-17.5); MEAN CORPUSCULAR HEMOGLOBIN 30.2 pg (27.0-33.0); MEAN CORPUSCULAR VOLUME 88.9 fl (80.0-96.0); RED BLOOD COUNT 3.24 10^6/uL (4.30-6.10)
[2018-03-08 17:23] LABS: PLATELET COUNT, AUTOMATED 59 10^3/uL (150-450)
[2018-03-08 17:30] LABS: INR 1.77; PROTHROMBIN TIME 20.9 SECONDS (12.1-14.4)
[2018-03-08 17:41] LABS: BLOOD UREA NITROGEN 14 MG/DL (7-18); CALCIUM LEVEL 7.5 MG/DL (8.8-10.2); CARBON DIOXIDE LEVEL 24 MEQ/L (21-32); CHLORIDE LEVEL 108 MEQ/L (98-107); CREATININE FOR GFR 0.85 MG/DL (0.70-1.30); GLOMERULAR FILTRATION RATE > 60.0 (>42); GLUCOSE, FASTING 131 MG/DL (70-100); LDH LACTATE DEHYDROGENASE 202 U/L (87-241); MAGNESIUM LEVEL 1.8 MG/DL (1.8-2.4); POTASSIUM SERUM 3.2 MEQ/L (3.5-5.1); SODIUM LEVEL 139 MEQ/L (136-145)
[2018-03-08] MEDS ORDERED: MAG SULF 1GM/100ML (MAG RUN) 1 GM in APPROPRIATE DILUENT 1 EA IV ONE (18:00)
--- NOTE | 2018-03-08 19:34 | IPNPDOC ---
Text Note Date of Service The patient was seen on 03/08/18. NOTE Patient seen and examined. comfortable. Oligouria. reported breathing okay on O2. Denied chest pain abd pain. PHYSICAL EXAMINATION: GENERAL: The patient is alert, pale, in no acute distress. Conversational. HEENT: Normocephalic, atraumatic. PULMONARY: Diminished breath sounds in the right lower base. No wheeze. CARDIAC: Regular. S1, S2. ABDOMEN: Distended, caput medusae, spider angioma. No rebound or guarding. Positive bowel sounds. EXTREMITIES: No clubbing, cyanosis or edema. ASSESSMENT AND PLAN: This is a 77-year-old male patient with underlying medical history of hypertension, recurrent gastrointestinal bleed, abdominal aortic aneurysm, acute hepatitis secondary to alcohol abuse causing cirrhosis and ascites, chronic obstructive pulmonary disease (COPD) on home oxygen, depression, gastroesophageal reflux disease (GERD), chronic pancreatitis, gout, with also hepatocellular carcinoma, treated, presented with shortness of breath and found to have worsening cirrhosis, hypotension, anemia, thrombocytopenia, pleural effusion and worsening ascites, and also found to have Clostridium (C.) difficile. 1. Clostridium (C.) difficile colitis. Vancomycin, probiotics, supportive care. Given severe ascites, we will implement colloid fluid resuscitation, albumin. Initially given IV fluids overnight. Supportive care. 2. Hypotension, possibly secondary to C. Difficile colitis versus urinary tract infection (UTI). Triple lumen central line was placed. albumin, PRBC, PLT, FFP, Cryoprecipitate. Patient oozing blood from IV. Followup central venous pressure. Pressors, Levophed, as needed. off levophed 3. Shortness of breath, likely secondary to pleural effusion and severe ascites. Avoid fluid overload. BP improved, one dose of lasix improved. Will do paracentesis tomorrow. Thoracentesis if respiration not improved. CXR repeat appreciated. Respiratory panel has been negative. 4. Urinary tract infection (UTI). Continue Rocephin. Followup cultures. 5. Anemia and thrombocytopenia, likely anemia due to dilutional versus second leyda to gastrointestinal bleed. Followup anemia workup, including fecal occult. The patient has no active signs of bleeding at this point. No nausea. No vomiting. We will empirically start octreotide and Protonix. consult Dr. Ortiz. fibrinogen low. f/u peripheral smear, LDH haptoglobin. PRBC, PLT, FFP, cryoprecipitate, vitamin K clear liquid diet 6. Lactic acidosis. Likely secondary to hypotension, improved. We will continue to monitor. 7. Remote history of alcohol abuse with subsequent cirrhosis, ascites. Vitamins as prescribed. Supportive care with albumin. Holding codeine, aldactone given the patient's hypotensive. We will monitor bowel movements. The patient will benefit from Lactulose, but we will hold it if the patient has greater than four bowel movements daily. Will need paracentesis. Continue Rocephin. 8. Thrombocytopenia secondary to cirrhosis. Supportive care. PLT given, workup as above 9. Coagulopathy secondary to cirrhosis and liver failure. Supportive care. Monitor for bleeding. DIC workup ordered, LDH, smear, Haptoglobin, fibrinogen. FFP, vitamin K, cryoprecipitate 10. History of chronic obstructive pulmonary disease (COPD). Continue home oxygen. The patient currently does not have any wheeze. Nebulizer treatments as needed. 11. Chronic pancreatitis. The patient does not have any abdominal pain at this point. 12. Depression, supportive care. Outpatient followup. The patient does not appear depressed. 13. Deep vein thrombosis (DVT) prophylaxis. Thromboembolic compression stockings (TEDS) and sequentials. Nonpharmacological agents given history of recurrent gastrointestinal bleed. 14. Questionable atrial fibrillation. Likely sinus tachycardia, but the patient currently is back in sinus. We will not perform any anticoagulation given the patient with advanced liver disease, coagulopathy and history of recurrent gastrointestinal bleed. Supportive care. DISPOSITION: GI consult. Continue treatment for C difficile. clinical improvement. coagulopathy workup. paracentesis tomorrow. possible thoracentesis if not improved Poor long-term prognosis. discussed advance directive, patient would like to remain full code for now. VS,Fishbone, I+O VS, Fishbone, I+O Laboratory Tests 03/08/18 00:18 03/08/18 03:53 Red Blood Count 2.51 L, Mean Corpuscular Volume 92.0, Mean Corpuscular Hemoglobin 30.7, Mean Corpuscular Hemoglobin Concent 33.3, Red Cell Distribution Width 16.9 H, Calcium Level 7.2 L, Aspartate Amino Transf (AST/SGOT) 21, Alanine Aminotransferase (ALT/SGPT) 11 L, Alkaline Phosphatase 33 L, Total Bilirubin 2.1 H, Total Protein 5.1 #L, Albumin 2.2 L 03/08/18 16:50 Red Blood Count 3.24 L, Mean Corpuscular Volume 88.9, Mean Corpuscular Hemoglobin 30.2, Mean Corpuscular Hemoglobin Concent 34.0, Red Cell Distribution Width 16.3 H, Calcium Level 7.5 L Vital Signs Date Time Temp Pulse Resp B/P (MAP) Pulse Ox O2 Delivery O2 Flow Rate FiO2 03/08/18 16:00 1.0 03/08/18 12:00 74 109/59 (76) 03/08/18 11:45 97.8 03/08/18 08:00 19 97 Nasal Cannula I&O- Last 24 Hours up to 6 AM 03/08/18 05:59 Intake Total 2428.9 ml Output Total 365 ml Balance 2063.9 ml BLAIRE GUPTA MD Mar 08, 2018 19:34
[2018-03-08 21:50] LABS: HEMATOCRIT 28.5 % (42.0-52.0); HEMOGLOBIN 9.6 g/dl (13.5-17.5)
[2018-03-09] VITALS (10 sets, daily range): BP systolic 110–151; BP diastolic 57–81
[2018-03-09] MEDS: SUCRALFATE 1 GM TAB PO SCH ×5 (00:57→23:52)
[2018-03-09] MEDS: VANCOMYCIN ORAL SOL 250MG/5ML ORAL SYRINGE PO SCH ×5 (00:57→23:52)
[2018-03-09 01:14] LABS: HEMATOCRIT 27.8 % (42.0-52.0); HEMOGLOBIN 9.6 g/dl (13.5-17.5)
[2018-03-09] MEDS: IPRATROPIUM 0.5MG/ALBUTEROL 2.5MG INH SOL UD 3ML (DUONEB)(J7620) NEB SCH ×4 (03:33→20:00)
[2018-03-09] MEDS: SODIUM CHLORIDE 0.9% INJ 10 ML SYR IV SCH ×3 (05:12→20:04)
[2018-03-09 05:52] LABS: HEMOGLOBIN 9.9 g/dl (13.5-17.5); MEAN CORPUSCULAR HEMOGLOBIN 30.1 pg (27.0-33.0); MEAN CORPUSCULAR HGB CONC 34.1 g/dl (32.0-36.5); MEAN CORPUSCULAR VOLUME 88.1 fl (80.0-96.0); RED BLOOD COUNT 3.29 10^6/uL (4.30-6.10); WHITE BLOOD COUNT 3.9 10^3/uL (4.0-10.0)
[2018-03-09 05:56] LABS: PLATELET COUNT, AUTOMATED 52 10^3/uL (150-450)
[2018-03-09 05:59] LABS: INR 1.31; PROTHROMBIN TIME 16.5 SECONDS (12.1-14.4)
[2018-03-09 06:47] LABS: ALBUMIN 2.5 GM/DL (3.2-5.2); ALT/SGPT 17 U/L (12-78); BILIRUBIN,TOTAL 1.4 MG/DL (0.2-1.0); BLOOD UREA NITROGEN 15 MG/DL (7-18); C REACTIVE PROTEIN QUANTITATIV 5.14 MG/DL (0.00-0.30); CARBON DIOXIDE LEVEL 26 MEQ/L (21-32); CHLORIDE LEVEL 107 MEQ/L (98-107); CREATININE FOR GFR 0.87 MG/DL (0.70-1.30); GLOMERULAR FILTRATION RATE > 60.0 (>42); GLUCOSE, FASTING 130 MG/DL (70-100); MAGNESIUM LEVEL 2.1 MG/DL (1.8-2.4); SODIUM LEVEL 141 MEQ/L (136-145); TOTAL PROTEIN 5.8 GM/DL (6.4-8.2)
[2018-03-09] MEDS ORDERED: POTASSIUM CHLORIDE 10 MEQ SR TABLET PO ONE ×2 (08:00→11:30)
[2018-03-09] MEDS: PANTOPRAZOLE 40MG INJ (PROTONIX) (C9113) IV SCH ×2 (08:08→20:03)
[2018-03-09] MEDS: LACTULOSE 20 GM/30 ML SYRUP UD PO SCH ×2 (08:08→20:03)
[2018-03-09] MEDS: VITAMIN B COMPLEX/VIT C CAP PO SCH (08:09)
[2018-03-09] MEDS: FOLIC ACID 1 MG TAB PO SCH (08:09)
[2018-03-09] MEDS: LACTOBACILLUS ACIDOPHILUS CAP (BACID) PO SCH ×3 (08:09→20:03)
[2018-03-09] MEDS: SERTRALINE HCL 50 MG TAB PO SCH (08:09)
[2018-03-09] MEDS: MULTIVITAMINS/MINERALS THERAP 1 TAB PO SCH (08:09)
[2018-03-09] MEDS: cefTRIAXone SOD 2 GM in D5W MINI-BAG PLUS 50 ML IV SCH (09:54)
--- NOTE | 2018-03-09 13:17 | IPNPDOC ---
Text Note Date of Service The patient was seen on 03/09/18. NOTE Subjective: Patient states he feels well. Denies any abdominal pain. Denies ch est pain/palpitations. No shortness of breath. Objective: Vitals: (see below) General: No acute distress, laying comfortably in bed. HEENT: Moist mucous membranes. Neck: No JVD or lymphadenopathy Cardiac: RRR, No murmurs Pulm: Clear to auscultation b/l. No wheezing, rhonchi Abd: NT/distended + BS. caput medusae/spider angioma. No rebound guarding or rigidity. Ext: No edema or cyanosis Labs (see below) Images: Assessment/Plan 1. Status post septic shock secondary to C. difficile as well as urinary tract infection. Improved. Off Levophed. 2. Decompensated cirrhosis. Improving. INR less than 1.5. Will send for paracentesis today. Denies any abdominal pain. 3. C. difficile on vancomycin by mouth. 4. Pancytopenia secondary to cirrhosis. Chronic. Stable. No need for transfusion at this time. 5. Remote history of alcohol abuse. 6. Coagulopathy secondary to cirrhosis and liver failure. Status post vitamin K, FFP 7. History of chronic pancreatitis. Denies pain at this time. 8. History of COPD- no wheezing at this time. Continue nebs 9. History of hepatocellular carcinoma. GI consulted by Dr. Zion RHODES prophy: SCDs Overall prognosis guarded. Patient is aware. I had an extensive conversation with him regarding his CODE STATUS and he would like to remain full code. VS,Yvonnee, I+O VS, Fishbone, I+O Laboratory Tests 03/08/18 16:50 Red Blood Count 3.24 L, Mean Corpuscular Volume 88.9, Mean Corpuscular Hemoglobin 30.2, Mean Corpuscular Hemoglobin Concent 34.0, Red Cell Distribution Width 16.3 H, Calcium Level 7.5 L 03/08/18 21:30 03/09/18 01:02 03/09/18 05:17 Calcium Level 8.0 L, Aspartate Amino Transf (AST/SGOT) 23, Alanine Aminotransferase (ALT/SGPT) 17, Alkaline Phosphatase 51, Total Bilirubin 1.4 H, Total Protein 5.8 L, Albumin 2.5 L 03/09/18 05:18 Red Blood Count 3.29 L, Mean Corpuscular Volume 88.1, Mean Corpuscular Hemoglobin 30.1, Mean Corpuscular Hemoglobin Concent 34.1, Red Cell Distribution Width 16.4 H Vital Signs Date Time Temp Pulse Resp B/P (MAP) Pulse Ox O2 Delivery O2 Flow Rate FiO2 03/09/18 08:00 1.0 03/09/18 00:00 98.7 85 16 119/61 (80) 99 Nasal Cannula I&O- Last 24 Hours up to 6 AM 03/09/18 06:00 Intake Total 4515 ml Output Total 3530 ml Balance 985 ml JAYY JOHNSON MD Mar 09, 2018 13:17
[2018-03-09] MEDS: OCTREOTIDE ACETATE 1,200 MCG in NS 238.8 ML IV SCH (14:00)
[2018-03-09 15:17] LABS: SPEC. GRAVITY BODY FLUIDS 1.009 (NOT ESTABLISHED)
[2018-03-09 15:31] LABS: APPEARANCE, BODY FLUID CLEAR (CLEAR); ASCITES FL COLOR PALE YELLOW (COLORLESS); SOURCE, BODY FLUID ASCITES
[2018-03-09 15:42] LABS: SOURCE, BODY FLUID GLUCOSE ASCITES; SOURCE, BODY FLUID TOT PROTEIN ASCITES; TOTAL PROTEIN, BODY FLUID 0.7 G/DL (NOT ESTABLISHED)
[2018-03-09 15:51] LABS: SOURCE, BODY FLUID ALBUMIN ASCITES
[2018-03-09 15:55] LABS: HEMATOCRIT 33.2 % (42.0-52.0); HEMOGLOBIN 11.2 g/dl (13.5-17.5)
[2018-03-09 16:15] LABS: BLOOD UREA NITROGEN 13 MG/DL (7-18); CALCIUM LEVEL 7.9 MG/DL (8.8-10.2); CARBON DIOXIDE LEVEL 27 MEQ/L (21-32); CHLORIDE LEVEL 107 MEQ/L (98-107); CREATININE FOR GFR 0.82 MG/DL (0.70-1.30); GLOMERULAR FILTRATION RATE > 60.0 (>42); GLUCOSE, FASTING 113 MG/DL (70-100); MAGNESIUM LEVEL 1.8 MG/DL (1.8-2.4); POTASSIUM SERUM 2.9 MEQ/L (3.5-5.1); SODIUM LEVEL 141 MEQ/L (136-145)
[2018-03-09] MEDS: ONDANSETRON 4MG/2ML VIAL (J2405) IV PRN ×2 (16:24→23:52)
--- NOTE | 2018-03-09 17:18 | REP ---
Ultrasound-guided paracentesis The procedure was performed under the direct supervision of Dr. Hansen. The risks and benefits of the procedure were explained to the patient and informed consent was obtained. The largest pocket of fluid was localized in the right flank using ultrasound guidance. The skin was prepped and draped in a sterile fashion. 1% lidocaine was used as a local anesthetic. An 8-Persian multi side-hole catheter was inserted using trocar technique. 5100 ml of yellow fluid was withdrawn with a sample sent to the lab for analysis. The patient tolerated the procedure well and there were no immediate complications. After the appropriate amount of monitored convalescence the patient was discharged from the department. Reviewed by JOYCE Gruber 03/09/2018 03:15 P Electronically Signed by Michael Hansen MD 03/09/2018 05:10 P
[2018-03-09] MEDS: POTASSIUM CHLORIDE 10 MEQ SR TABLET PO SCH ×2 (18:40→20:03)
[2018-03-09 20:29] LABS: HEMATOCRIT 32.9 % (42.0-52.0)
[2018-03-09 23:59] LABS: HEMATOCRIT 32.4 % (42.0-52.0); HEMOGLOBIN 10.9 g/dl (13.5-17.5); MEAN CORPUSCULAR HEMOGLOBIN 30.1 pg (27.0-33.0); MEAN CORPUSCULAR HGB CONC 33.6 g/dl (32.0-36.5); MEAN CORPUSCULAR VOLUME 89.5 fl (80.0-96.0); RED BLOOD COUNT 3.62 10^6/uL (4.30-6.10); WHITE BLOOD COUNT 3.9 10^3/uL (4.0-10.0)
[2018-03-10] VITALS (9 sets, daily range): BP systolic 88–127; BP diastolic 59–85
[2018-03-10 00:20] LABS: PLATELET COUNT, AUTOMATED 38 10^3/uL (150-450)
[2018-03-10 00:42] LABS: BLOOD UREA NITROGEN 13 MG/DL (7-18); CALCIUM LEVEL 7.7 MG/DL (8.8-10.2); CARBON DIOXIDE LEVEL 29 MEQ/L (21-32); CHLORIDE LEVEL 108 MEQ/L (98-107); CREATININE FOR GFR 0.82 MG/DL (0.70-1.30); GLOMERULAR FILTRATION RATE > 60.0 (>42); GLUCOSE, FASTING 162 MG/DL (70-100); POTASSIUM SERUM 4.2 MEQ/L (3.5-5.1); SODIUM LEVEL 142 MEQ/L (136-145)
[2018-03-10] MEDS: IPRATROPIUM 0.5MG/ALBUTEROL 2.5MG INH SOL UD 3ML (DUONEB)(J7620) NEB SCH ×4 (02:00→20:00)
--- NOTE | 2018-03-10 03:23 | CR ---
DATE OF CONSULTATION: 03/08/2018 This is a 77-year-old white male who was admitted to [facility] ([facility]) for evaluation of apparent increasing shortness of breath. The patient has multiple medical problems including cirrhosis of the liver, ascites and apparent previous diagnosis of possible hepatocellular carcinoma with apparent treatment. The patient is being seen for evaluation of his multiple medical problems, specifically his cirrhosis. PAST MEDICAL HISTORY: Positive for: 1. Cirrhosis. 2. Two hypodense areas on the liver with possible recurrence of his hepatocellular carcinoma. 3. He is status post abdominal aortic aneurysm with four stents apparently placed. 4. Chronic obstructive pulmonary disease (COPD) on oxygen. 5. Depression. 6. Chronic pancreatitis. 7. Esophageal banding apparently for varices. 8. Status post cholecystectomy. SOCIAL HISTORY: Cigarettes. The patient quit 26 years ago. Alcohol apparently no alcohol for the past 15 weeks per patient. He has had some again increasing shortness of breath and some diarrhea. The patient has been found to have Clostridium difficile (C. diff) in his stool. REVIEW OF SYSTEMS: Review of systems noncontributory. PHYSICAL EXAMINATION: GENERAL: Well-developed, well-nourished white male in no obvious acute distress. Appears stated age. CHEST: Clear to auscultation. CARDIOVASCULAR: Cardiovascular exam showed a regular rhythm. No murmurs or gallops. Normal physiological split S1, S2. ABDOMEN: Soft, nontender. No masses, guarding, rebound or hepatosplenomegaly. Bowel sounds positive. EXTREMITIES: No cyanosis, clubbing or edema. Tucker's was negative. LABORATORY STUDIES: Laboratory studies on admission showed a white count 4600, hemoglobin and hematocrit (H and H) was 9.5 and 29.7 on admission with a platelet count of 78,000. On the date of consultation his platelets of 31,000. The patient had an INR of 1.68 and now it is 2.22. The patient had an abdominal CT which suggested again cirrhosis with two possible metastatic lesions in the liver. Gallstones on CT, ascites right pleural effusion. The patient had a right hilar mass for 4 x 6 x 3.1 cm. ANALYSIS: 1. Cirrhosis of the liver secondary to alcohol abuse. At the present time the patient should have an alpha-fetoprotein level to possible help confirm the diagnosis of hepatocellular carcinoma. 2. Ascites. The patient should have frequent paracentesis possibly once every 3 weeks to 4 weeks with IV albumin. 4. Patient is on lactulose apparent hepatic encephalopathy. 5. Thrombocytopenia secondary to cirrhosis and splenomegaly. 6. Chronic obstructive pulmonary disease (COPD). 7. Clostridium difficile (C. diff). The patient is to be treated with vancomycin. PLAN: 1. The plan will be to treat the patient expectantly. If he is not showing any clinical signs of active bleeding we will just give and blood as needed and maintain medications for his C. diff C diff to control his diarrhea. 2. The patient should be seen possibly by oncology here or back at [facility] for reevaluation of a possible recurrence of his hepatocellular carcinoma. 3. The patient possibly could be considered to have a repeat esophagogastroduodenoscopy (EGD) if necessary though at this point he is not actively bleeding. This could be proceeded as an outpatient.
[2018-03-10 04:27] LABS: HEMATOCRIT 34.4 % (42.0-52.0); HEMOGLOBIN 11.5 g/dl (13.5-17.5); MEAN CORPUSCULAR HEMOGLOBIN 30.3 pg (27.0-33.0); MEAN CORPUSCULAR HGB CONC 33.4 g/dl (32.0-36.5); MEAN CORPUSCULAR VOLUME 90.5 fl (80.0-96.0); WHITE BLOOD COUNT 4.8 10^3/uL (4.0-10.0)
[2018-03-10 04:29] LABS: PLATELET COUNT, AUTOMATED 45 10^3/uL (150-450)
[2018-03-10 04:44] LABS: INR 1.35; PROTHROMBIN TIME 16.9 SECONDS (12.1-14.4)
[2018-03-10 04:52] LABS: ALBUMIN 2.4 GM/DL (3.2-5.2); ALT/SGPT 16 U/L (12-78); BILIRUBIN,TOTAL 1.7 MG/DL (0.2-1.0); BLOOD UREA NITROGEN 12 MG/DL (7-18); CALCIUM LEVEL 7.9 MG/DL (8.8-10.2); CARBON DIOXIDE LEVEL 28 MEQ/L (21-32); CHLORIDE LEVEL 108 MEQ/L (98-107); CREATININE FOR GFR 0.74 MG/DL (0.70-1.30); GLOMERULAR FILTRATION RATE > 60.0 (>42); GLUCOSE, FASTING 107 MG/DL (70-100); MAGNESIUM LEVEL 1.6 MG/DL (1.8-2.4); POTASSIUM SERUM 4.4 MEQ/L (3.5-5.1); SODIUM LEVEL 141 MEQ/L (136-145); TOTAL PROTEIN 5.7 GM/DL (6.4-8.2)
[2018-03-10] MEDS: SODIUM CHLORIDE 0.9% INJ 10 ML SYR IV SCH ×2 (06:00→13:25)
[2018-03-10] MEDS: VANCOMYCIN ORAL SOL 250MG/5ML ORAL SYRINGE PO SCH ×3 (06:32→17:14)
[2018-03-10] MEDS: SUCRALFATE 1 GM TAB PO SCH ×3 (06:33→17:14)
[2018-03-10] MEDS: ONDANSETRON 4MG/2ML VIAL (J2405) IV PRN ×2 (07:27→19:07)
[2018-03-10] MEDS ORDERED: MAG SULF 1GM/100ML (MAG RUN) 1 GM in APPROPRIATE DILUENT 1 EA IV ONE (08:00)
[2018-03-10] MEDS: LACTULOSE 20 GM/30 ML SYRUP UD PO SCH ×2 (09:00→21:00)
[2018-03-10] MEDS: cefTRIAXone SOD 2 GM in D5W MINI-BAG PLUS 50 ML IV SCH (09:17)
[2018-03-10] MEDS: PANTOPRAZOLE 40MG INJ (PROTONIX) (C9113) IV SCH ×2 (09:18→21:41)
[2018-03-10] MEDS: SERTRALINE HCL 50 MG TAB PO SCH (09:18)
[2018-03-10] MEDS: VITAMIN B COMPLEX/VIT C CAP PO SCH (09:18)
[2018-03-10] MEDS: FOLIC ACID 1 MG TAB PO SCH (09:18)
[2018-03-10] MEDS: MULTIVITAMINS/MINERALS THERAP 1 TAB PO SCH (09:18)
[2018-03-10] MEDS: LACTOBACILLUS ACIDOPHILUS CAP (BACID) PO SCH ×3 (09:18→21:41)
--- NOTE | 2018-03-10 11:44 | IPNPDOC ---
Text Note Date of Service The patient was seen on 03/10/18. NOTE Subjective: Patient states he feels well. Denies any abdominal pain. Denies ch est pain/palpitations. No shortness of breath. Objective: Vitals: (see below) General: No acute distress, laying comfortably in bed. HEENT: Moist mucous membranes. Neck: No JVD or lymphadenopathy Cardiac: RRR, No murmurs Pulm: Clear to auscultation b/l. No wheezing, rhonchi Abd: NT/distended + BS. caput medusae/spider angioma. No rebound guarding or rigidity. Ext: No edema or cyanosis Labs (see below) Assessment/Plan 1. Status post septic shock secondary to C. difficile as well as urinary tract infection. Improved. Off Levophed. 2. Decompensated cirrhosis. Improving. INR less than 1.5. s/p paracentesis 03/09, with 5.2L Removed -received albumin. Denies any abdominal pain. 3. C. difficile on vancomycin by mouth. We'll need to closely monitor this patient is currently on lactulose as well for hepatic encephalopathy. 4. Pancytopenia secondary to cirrhosis. Chronic. Stable. No need for transfusion at this time. 5. Remote history of alcohol abuse. 6. Coagulopathy secondary to cirrhosis and liver failure. Status post vitamin K, FFP 7. History of chronic pancreatitis. Denies pain at this time. 8. History of COPD- no wheezing at this time. Continue nebs 9. History of hepatocellular carcinoma. GI consulted by Dr. Donovan. ?recurrence. Pt states he would like to f/u with his Oncologist/GI in [place], rather than having workup here. AFP sent. DVT prophy: SCDs Overall prognosis guarded. Patient is aware. I had an extensive conversation with him regarding his CODE STATUS and he would like to remain full code. Discontinue Garcia. Discontinue octreotide. Physical therapy ordered. VS,Fishbone, I+O VS, Fishbone, I+O Laboratory Tests 03/09/18 15:30 Calcium Level 7.9 L 03/09/18 20:05 03/09/18 23:44 Calcium Level 7.7 L, Red Blood Count 3.62 L, Mean Corpuscular Volume 89.5, Mean Corpuscular Hemoglobin 30.1, Mean Corpuscular Hemoglobin Concent 33.6, Red Cell Distribution Width 16.4 H 03/10/18 04:16 Calcium Level 7.9 L, Red Blood Count 3.80 L, Mean Corpuscular Volume 90.5, Mean Corpuscular Hemoglobin 30.3, Mean Corpuscular Hemoglobin Concent 33.4, Red Cell Distribution Width 16.6 H, Aspartate Amino Transf (AST/SGOT) 22, Alanine Aminotransferase (ALT/SGPT) 16, Alkaline Phosphatase 49, Total Bilirubin 1.7 H, Total Protein 5.7 L, Albumin 2.4 L Vital Signs Date Time Temp Pulse Resp B/P (MAP) Pulse Ox O2 Delivery O2 Flow Rate FiO2 03/10/18 04:00 99.0 83 14 115/68 (84) 96 Room Air 03/09/18 16:00 1.0 35 I&O- Last 24 Hours up to 6 AM 03/10/18 06:00 Intake Total 1070 ml Output Total 967 ml Balance 103 ml JAYY JOHNSON MD Mar 10, 2018 11:44
[2018-03-10] MEDS ORDERED: FUROSEMIDE 20 MG/2 ML VIAL (J1940) IV ONE (18:30)
[2018-03-10] MEDS: TAMSULOSIN 0.4 MG CAP PO SCH (19:08)
[2018-03-11] VITALS (11 sets, daily range): BP systolic 76–90; BP diastolic 48–62
[2018-03-11 00:06] LABS: INFLUENZA A VIRUS TITER Negative (Neg:<1:8); INFLUENZA B VIRUS TITER Negative (Neg:<1:8)
[2018-03-11] MEDS: SODIUM CHLORIDE 0.9% INJ 10 ML SYR IV SCH ×4 (00:13→22:08)
[2018-03-11] MEDS: VANCOMYCIN ORAL SOL 250MG/5ML ORAL SYRINGE PO SCH ×5 (00:13→23:53)
[2018-03-11] MEDS: SUCRALFATE 1 GM TAB PO SCH ×5 (00:13→23:53)
[2018-03-11] MEDS: IPRATROPIUM 0.5MG/ALBUTEROL 2.5MG INH SOL UD 3ML (DUONEB)(J7620) NEB SCH ×4 (02:00→21:53)
[2018-03-11 05:40] LABS: HEMATOCRIT 33.5 % (42.0-52.0); MEAN CORPUSCULAR HEMOGLOBIN 30.2 pg (27.0-33.0); MEAN CORPUSCULAR HGB CONC 32.8 g/dl (32.0-36.5); RED BLOOD COUNT 3.64 10^6/uL (4.30-6.10)
[2018-03-11 05:41] LABS: PLATELET COUNT, AUTOMATED 41 10^3/uL (150-450)
[2018-03-11 05:48] LABS: INR 1.62; PROTHROMBIN TIME 19.5 SECONDS (12.1-14.4)
[2018-03-11 06:03] LABS: ALBUMIN 1.9 GM/DL (3.2-5.2); ALT/SGPT 14 U/L (12-78); BILIRUBIN,TOTAL 1.3 MG/DL (0.2-1.0); BLOOD UREA NITROGEN 12 MG/DL (7-18); C REACTIVE PROTEIN QUANTITATIV 3.87 MG/DL (0.00-0.30); CALCIUM LEVEL 7.8 MG/DL (8.8-10.2); CARBON DIOXIDE LEVEL 28 MEQ/L (21-32); CHLORIDE LEVEL 105 MEQ/L (98-107); CREATININE FOR GFR 0.74 MG/DL (0.70-1.30); GLOMERULAR FILTRATION RATE > 60.0 (>42); GLUCOSE, FASTING 66 MG/DL (70-100); MAGNESIUM LEVEL 1.7 MG/DL (1.8-2.4); POTASSIUM SERUM 3.9 MEQ/L (3.5-5.1); SODIUM LEVEL 138 MEQ/L (136-145); TOTAL PROTEIN 5.2 GM/DL (6.4-8.2)
[2018-03-11] MEDS ORDERED: MAG SULF 1GM/100ML (MAG RUN) 1 GM in APPROPRIATE DILUENT 1 EA IV ONE (08:00)
[2018-03-11] MEDS: MIDODRINE 2.5 MG TAB PO SCH ×3 (08:19→17:06)
[2018-03-11] MEDS: MULTIVITAMINS/MINERALS THERAP 1 TAB PO SCH (09:39)
[2018-03-11] MEDS: PANTOPRAZOLE 40MG INJ (PROTONIX) (C9113) IV SCH ×2 (09:39→20:49)
[2018-03-11] MEDS: LACTULOSE 20 GM/30 ML SYRUP UD PO SCH ×2 (09:39→20:49)
[2018-03-11] MEDS: LACTOBACILLUS ACIDOPHILUS CAP (BACID) PO SCH ×3 (09:40→20:49)
[2018-03-11] MEDS: TAMSULOSIN 0.4 MG CAP PO SCH (09:40)
[2018-03-11] MEDS: VITAMIN B COMPLEX/VIT C CAP PO SCH (09:40)
[2018-03-11] MEDS: SERTRALINE HCL 50 MG TAB PO SCH (09:40)
[2018-03-11] MEDS: FOLIC ACID 1 MG TAB PO SCH (09:40)
[2018-03-11] MEDS: cefTRIAXone SOD 2 GM in D5W MINI-BAG PLUS 50 ML IV SCH (09:41)
--- NOTE | 2018-03-11 14:14 | IPNPDOC ---
Text Note Date of Service The patient was seen on 03/11/18. NOTE Subjective: Patient states he feels well. Denies any abdominal pain. Denies c hest pain/palpitations. No shortness of breath. Objective: Vitals: (see below) General: No acute distress, laying comfortably in bed. HEENT: Moist mucous membranes. Neck: No JVD or lymphadenopathy Cardiac: RRR, No murmurs Pulm: Clear to auscultation b/l. No wheezing, rhonchi Abd: NT/distended + BS. caput medusae/spider angioma. No rebound guarding or rigidity. Ext: No edema or cyanosis Labs (see below) Assessment/Plan 1. Status post septic shock secondary to C. difficile as well as urinary tract infection. Improved. Off Levophed. Discontinue Rocephin. No leukocytosis. 2. Decompensated cirrhosis. Improving. INR less than 1.5. s/p paracentesis 03/09, with 5.2L Removed -received albumin. Denies any abdominal pain. Started on Midodrin given relative hypotension. Albumin infusion. 3. C. difficile on vancomycin by mouth. We'll need to closely monitor this patient is currently on lactulose as well for hepatic encephalopathy. 4. Pancytopenia secondary to cirrhosis. Chronic. Stable. No need for transfusion at this time. 5. Remote history of alcohol abuse. 6. Coagulopathy secondary to cirrhosis and liver failure. Status post vitamin K, FFP 7. History of chronic pancreatitis. Denies pain at this time. 8. History of COPD- no wheezing at this time. Continue nebs 9. History of hepatocellular carcinoma. GI consulted by Dr. Donovan. ?recurrence. Pt states he would like to f/u with his Oncologist/GI in [place], rather than having workup here. AFP sent. DVT prophy: SCDs Overall prognosis guarded. Patient is aware. I had an extensive conversation with him regarding his CODE STATUS and he would like to remain full code. Physical therapy ordered VS,Fishbone, I+O VS, Fishbone, I+O Laboratory Tests 03/11/18 05:08 Red Blood Count 3.64 L, Mean Corpuscular Volume 92.0, Mean Corpuscular Hemoglobin 30.2, Mean Corpuscular Hemoglobin Concent 32.8, Red Cell Distribution Width 16.2 H, Calcium Level 7.8 L, Aspartate Amino Transf (AST/SGOT) 24, Alanine Aminotransferase (ALT/SGPT) 14, Alkaline Phosphatase 43 L, Total Bilirubin 1.3 H, Total Protein 5.2 L, Albumin 1.9 #L Vital Signs Date Time Temp Pulse Resp B/P (MAP) Pulse Ox O2 Delivery O2 Flow Rate FiO2 03/11/18 12:26 98.6 78 18 79/53 (62) 92 Room Air 03/09/18 16:00 1.0 35 I&O- Last 24 Hours up to 6 AM 03/11/18 05:59 Intake Total 1110 ml Output Total 2150 ml Balance -1040 ml JAYY JOHNSON MD Mar 11, 2018 14:14
[2018-03-12] VITALS: BP 86/55
[2018-03-12] MEDS ORDERED: NS 500 ML IV SCH (02:15)
[2018-03-12] MEDS: IPRATROPIUM 0.5MG/ALBUTEROL 2.5MG INH SOL UD 3ML (DUONEB)(J7620) NEB SCH ×4 (02:31→20:00)
[2018-03-12 04:50] VITALS: BP 87/53
[2018-03-12] MEDS: SUCRALFATE 1 GM TAB PO SCH ×3 (05:05→17:10)
[2018-03-12] MEDS: SODIUM CHLORIDE 0.9% INJ 10 ML SYR IV SCH ×3 (05:05→22:00)
[2018-03-12] MEDS: VANCOMYCIN ORAL SOL 250MG/5ML ORAL SYRINGE PO SCH ×3 (05:05→17:11)
[2018-03-12 05:29] LABS: HEMATOCRIT 30.3 % (42.0-52.0); MEAN CORPUSCULAR HEMOGLOBIN 30.8 pg (27.0-33.0); MEAN CORPUSCULAR VOLUME 93.2 fl (80.0-96.0); RED BLOOD COUNT 3.25 10^6/uL (4.30-6.10); WHITE BLOOD COUNT 3.1 10^3/uL (4.0-10.0)
[2018-03-12 05:33] LABS: PLATELET COUNT, AUTOMATED 30 10^3/uL (150-450)
[2018-03-12 05:46] LABS: INR 1.7; PROTHROMBIN TIME 20.3 SECONDS (12.1-14.4)
[2018-03-12 05:47] LABS: ALBUMIN 2.1 GM/DL (3.2-5.2); ALT/SGPT 13 U/L (12-78); BILIRUBIN,TOTAL 0.9 MG/DL (0.2-1.0); BLOOD UREA NITROGEN 12 MG/DL (7-18); C REACTIVE PROTEIN QUANTITATIV 3.25 MG/DL (0.00-0.30); CALCIUM LEVEL 7.6 MG/DL (8.8-10.2); CARBON DIOXIDE LEVEL 28 MEQ/L (21-32); CHLORIDE LEVEL 105 MEQ/L (98-107); CREATININE FOR GFR 0.83 MG/DL (0.70-1.30); GLOMERULAR FILTRATION RATE > 60.0 (>42); GLUCOSE, FASTING 129 MG/DL (70-100); MAGNESIUM LEVEL 1.6 MG/DL (1.8-2.4); POTASSIUM SERUM 3.3 MEQ/L (3.5-5.1); SODIUM LEVEL 138 MEQ/L (136-145)
[2018-03-12] MEDS: MIDODRINE 2.5 MG TAB PO SCH ×3 (07:47→17:10)
[2018-03-12] MEDS: MULTIVITAMINS/MINERALS THERAP 1 TAB PO SCH (07:47)
[2018-03-12] MEDS: FOLIC ACID 1 MG TAB PO SCH (07:47)
[2018-03-12] MEDS: LACTOBACILLUS ACIDOPHILUS CAP (BACID) PO SCH ×3 (07:47→19:58)
[2018-03-12] MEDS: PANTOPRAZOLE 40MG INJ (PROTONIX) (C9113) IV SCH ×2 (07:47→19:58)
[2018-03-12] MEDS: SERTRALINE HCL 50 MG TAB PO SCH (07:48)
[2018-03-12] MEDS: LACTULOSE 20 GM/30 ML SYRUP UD PO SCH (07:51)
[2018-03-12] MEDS: VITAMIN B COMPLEX/VIT C CAP PO SCH (07:51)
[2018-03-12] MEDS: TAMSULOSIN 0.4 MG CAP PO SCH (07:51)
[2018-03-12 08:00] VITALS: BP 84/53
[2018-03-12] MEDS ORDERED: MAG SULF 1GM/100ML (MAG RUN) 1 GM in APPROPRIATE DILUENT 1 EA IV ONE (08:15)
[2018-03-12] MEDS ORDERED: POTASSIUM CHLORIDE 10 MEQ SR TABLET PO ONE (08:15)
[2018-03-12] MEDS: PHYTONADIONE 5 MG TAB PO SCH (08:48)
--- NOTE | 2018-03-12 09:03 | REP ---
Portable chest x-ray: Single view. History: Hypotension. Congestion. Comparison chest x-ray: March 08, 2018. Findings: A right internal jugular central venous line remains in place in the expected location of the superior vena cava. There are is evidence of bilateral pleural effusion, right greater than left. Heart is not enlarged. The aorta is calcific and tortuous. No definite infiltrate. Electronically Signed by Michael Hansen MD 03/12/2018 08:54 A
[2018-03-12 12:00] VITALS: BP 89/57
--- NOTE | 2018-03-12 14:10 | IPNPDOC ---
Text Note Date of Service The patient was seen on 03/12/18. NOTE Subjective: No acute changes overnight. Denies any abdominal pain. No shortness of breath. Objective: Vitals: (see below) General: No acute distress, laying comfortably in bed. HEENT: Moist mucous membranes. Neck: No JVD or lymphadenopathy Cardiac: RRR, No murmurs Pulm: Clear to auscultation b/l. No wheezing, rhonchi Abd: NT/distended + BS. caput medusae/spider angioma. No rebound guarding or rigidity. Ext: No edema or cyanosis Labs (see below) Assessment/Plan 1. Status post septic shock secondary to C. difficile as well as urinary tract infection. Improved. Off Levophed. Discontinue Rocephin. No leukocytosis. 2. Decompensated cirrhosis. Improving. INR less than 1.5. s/p paracentesis 03/09, with 5.2L Removed -received albumin. Denies any abdominal pain. Started on Midodrine given relative hypotension, initially started on Flomax however this is discontinued given hypotension., Albumin infusion q8h we'll also send for blood cultures. Hold lactulose for now. 3. C. difficile on vancomycin by mouth. We'll need to closely monitor this patient is currently on lactulose as well for hepatic encephalopathy. 4. Pancytopenia secondary to cirrhosis. Chronic. Stable. No need for transfusion at this time. 5. Remote history of alcohol abuse. 6. Coagulopathy secondary to cirrhosis and liver failure. Status post vitamin K, FFP 7. History of chronic pancreatitis. Denies pain at this time. 8. History of COPD- no wheezing at this time. Continue nebs 9. History of hepatocellular carcinoma. GI consulted by Dr. Donovan. ?recurrence. Pt states he would like to f/u with his Oncologist/GI in [place], rather than having workup here. AFP sent. DVT prophy: SCDs Overall prognosis guarded. Patient is aware. I had an extensive conversation with him regarding his CODE STATUS and he would like to remain full code. Physical therapy ordered VS,Fishbone, I+O VS, Fishbone, I+O Laboratory Tests 03/12/18 05:10 Red Blood Count 3.25 L, Mean Corpuscular Volume 93.2, Mean Corpuscular Hemoglobin 30.8, Mean Corpuscular Hemoglobin Concent 33.0, Red Cell Distribution Width 15.9 H, Calcium Level 7.6 L, Aspartate Amino Transf (AST/SGOT) 19, Alanine Aminotransferase (ALT/SGPT) 13, Alkaline Phosphatase 39 L, Total Bilirubin 0.9, Total Protein 5.0 L, Albumin 2.1 L Vital Signs Date Time Temp Pulse Resp B/P (MAP) Pulse Ox O2 Delivery O2 Flow Rate FiO2 03/12/18 12:00 98.1 87 16 89/57 (68) 96 Room Air 03/09/18 16:00 1.0 35 I&O- Last 24 Hours up to 6 AM 03/12/18 06:00 Intake Total 1270 ml Output Total 725 ml Balance 545 ml JAYY JOHNSON MD Mar 12, 2018 14:10
[2018-03-12 16:00] VITALS: BP 90/53
[2018-03-12 20:00] VITALS: BP 85/51
[2018-03-12 22:28] LABS: APPEARANCE, URINE HAZY (CLEAR); BACTERIA, URINE AUTO 1+ (NEGATIVE); BILIRUBIN, URINE AUTO NEGATIVE (NEGATIVE); BLOOD, URINE BLOOD 3+ (NEGATIVE); COLOR, URINE AMBER (YELLOW); GLUCOSE, URINE (UA) AUTO NEGATIVE (NEGATIVE); KETONE, URINE AUTO NEGATIVE (NEGATIVE); LEUKOCYTE ESTERASE, URINE AUTO 3+ (NEGATIVE); MUCUS, URINE SMALL (NEGATIVE); NITRITE, URINE AUTO NEGATIVE (NEGATIVE); PROTEIN, URINE AUTO 2+ mg/dL (NEGATIVE); RBC, URINE AUTO 81 /HPF (0-3); SPECIFIC GRAVITY URINE AUTO 1.023 (1.002-1.035); SQUAMOUS EPITHELIAL CELL UR AU 0 /HPF (0-6); UROBILINOGEN, URINE AUTO 0.2 mg/dL (0.0-2.0); WBC, URINE AUTO 121 /HPF (0-3)
[2018-03-13] VITALS (18 sets, daily range): BP systolic 79–131; BP diastolic 50–76
[2018-03-13] MEDS: SUCRALFATE 1 GM TAB PO SCH ×4 (00:11→18:06)
[2018-03-13] MEDS: VANCOMYCIN ORAL SOL 250MG/5ML ORAL SYRINGE PO SCH ×4 (00:11→18:06)
[2018-03-13] MEDS: IPRATROPIUM 0.5MG/ALBUTEROL 2.5MG INH SOL UD 3ML (DUONEB)(J7620) NEB SCH ×4 (02:00→21:15)
[2018-03-13 04:48] LABS: HEMATOCRIT 25.5 % (42.0-52.0); HEMOGLOBIN 8.3 g/dl (13.5-17.5); MEAN CORPUSCULAR HEMOGLOBIN 30.9 pg (27.0-33.0); MEAN CORPUSCULAR HGB CONC 32.5 g/dl (32.0-36.5); MEAN CORPUSCULAR VOLUME 94.8 fl (80.0-96.0); RED BLOOD COUNT 2.69 10^6/uL (4.30-6.10); WHITE BLOOD COUNT 2.1 10^3/uL (4.0-10.0)
[2018-03-13 04:59] LABS: INR 1.96; PROTHROMBIN TIME 22.7 SECONDS (12.1-14.4)
[2018-03-13 05:07] LABS: PLATELET COUNT, AUTOMATED 24 10^3/uL (150-450)
[2018-03-13 05:27] LABS: ALBUMIN 2.9 GM/DL (3.2-5.2); ALT/SGPT 11 U/L (12-78); BLOOD UREA NITROGEN 10 MG/DL (7-18); C REACTIVE PROTEIN QUANTITATIV 2.45 MG/DL (0.00-0.30); CALCIUM LEVEL 7.9 MG/DL (8.8-10.2); CARBON DIOXIDE LEVEL 26 MEQ/L (21-32); CHLORIDE LEVEL 106 MEQ/L (98-107); CREATININE FOR GFR 0.79 MG/DL (0.70-1.30); GLOMERULAR FILTRATION RATE > 60.0 (>42); GLUCOSE, FASTING 114 MG/DL (70-100); MAGNESIUM LEVEL 1.8 MG/DL (1.8-2.4); POTASSIUM SERUM 3.5 MEQ/L (3.5-5.1); SODIUM LEVEL 138 MEQ/L (136-145); TOTAL PROTEIN 5.4 GM/DL (6.4-8.2)
[2018-03-13] MEDS: SODIUM CHLORIDE 0.9% INJ 10 ML SYR IV SCH ×3 (06:14→20:46)
[2018-03-13] MEDS: MIDODRINE 2.5 MG TAB PO SCH ×3 (08:26→16:17)
[2018-03-13] MEDS: PANTOPRAZOLE 40MG INJ (PROTONIX) (C9113) IV SCH ×2 (08:26→20:47)
[2018-03-13] MEDS: cefTRIAXone SOD 1 GM in D5W MINI-BAG PLUS 50 ML IV SCH (08:26)
[2018-03-13] MEDS: FOLIC ACID 1 MG TAB PO SCH (08:27)
[2018-03-13] MEDS: PHYTONADIONE 5 MG TAB PO SCH (08:27)
[2018-03-13] MEDS: MULTIVITAMINS/MINERALS THERAP 1 TAB PO SCH (08:27)
[2018-03-13] MEDS: VITAMIN B COMPLEX/VIT C CAP PO SCH (08:27)
[2018-03-13] MEDS: SERTRALINE HCL 50 MG TAB PO SCH (08:27)
[2018-03-13] MEDS: LACTOBACILLUS ACIDOPHILUS CAP (BACID) PO SCH ×3 (08:27→20:45)
--- NOTE | 2018-03-13 12:13 | IPNPDOC ---
Text Note Date of Service The patient was seen on 03/13/18. NOTE Subjective: Had clots and BRBRP overnight. Hb/platelets decreased. Receive tr ansfusion this am. No diarrhea/abd pain. Feels well. Objective: Vitals: (see below) General: No acute distress, laying comfortably in bed. HEENT: Moist mucous membranes. Neck: No JVD or lymphadenopathy Cardiac: RRR, No murmurs Pulm: Clear to auscultation b/l. No wheezing, rhonchi Abd: NT/distended + BS. caput medusae/spider angioma. No rebound guarding or rigidity. Ext: No edema or cyanosis Labs (see below) Assessment/Plan 1. Status post septic shock secondary to C. difficile as well as urinary tract infection. Improved. Off Levophed. Rocephin for uti. No leukocytosis. 2. Decompensated cirrhosis. Improving. INR less than 1.5. s/p paracentesis 03/09, with 5.2L Removed -received albumin. Denies any abdominal pain. Started on Midodrine given relative hypotension, initially started on Flomax however this is discontinued given hypotension., Albumin infusion q8h we'll also send for blood cultures. Hold lactulose for now. 3. C. difficile on vancomycin by mouth. We'll need to closely monitor this patient is currently on lactulose as well for hepatic encephalopathy. 4. Pancytopenia secondary to cirrhosis. Chronic. Hb/Plat decreased- will transfusion. BRBPR - pt does not want endoscopy at this time, and would like conservative measures. 5. Remote history of alcohol abuse. 6. Coagulopathy secondary to cirrhosis and liver failure. Status post vitamin K, FFP 7. History of chronic pancreatitis. Denies pain at this time. 8. History of COPD- no wheezing at this time. Continue nebs 9. History of hepatocellular carcinoma. GI consulted by Dr. Donovan. ?recurrence. Pt states he would like to f/u with his Oncologist/GI in [place], rather than having workup here. AFP sent. DVT prophy: SCDs Overall prognosis guarded. Patient is aware. I had an extensive conversation with him regarding his CODE STATUS and he would like to remain full code. Physical therapy ordered VS,Fishbone, I+O VS, Fishbone, I+O Laboratory Tests 03/13/18 04:32 Red Blood Count 2.69 L, Mean Corpuscular Volume 94.8, Mean Corpuscular Hemoglobin 30.9, Mean Corpuscular Hemoglobin Concent 32.5, Red Cell Distribution Width 15.9 H 03/13/18 04:52 Calcium Level 7.9 L, Aspartate Amino Transf (AST/SGOT) 14, Alanine Aminotransferase (ALT/SGPT) 11 L, Alkaline Phosphatase 31 L, Total Bilirubin 1.0, Total Protein 5.4 L, Albumin 2.9 #L Vital Signs Date Time Temp Pulse Resp B/P (MAP) Pulse Ox O2 Delivery O2 Flow Rate FiO2 03/13/18 10:00 96.8 71 20 90/57 (68) 96 Room Air 03/09/18 16:00 1.0 35 I&O- Last 24 Hours up to 6 AM 03/13/18 06:00 Intake Total 1300 ml Output Total 380 ml Balance 920 ml JAYY JOHNSON MD Mar 13, 2018 12:13
[2018-03-14] VITALS (9 sets, daily range): BP systolic 81–110; BP diastolic 52–71
[2018-03-14] MEDS: IPRATROPIUM 0.5MG/ALBUTEROL 2.5MG INH SOL UD 3ML (DUONEB)(J7620) NEB SCH ×4 (02:00→21:42)
[2018-03-14] MEDS: SUCRALFATE 1 GM TAB PO SCH ×4 (06:00→18:02)
[2018-03-14] MEDS: VANCOMYCIN ORAL SOL 250MG/5ML ORAL SYRINGE PO SCH ×4 (06:00→18:02)
[2018-03-14] MEDS: SODIUM CHLORIDE 0.9% INJ 10 ML SYR IV SCH ×3 (06:42→21:19)
[2018-03-14 06:55] LABS: HEMATOCRIT 30.3 % (42.0-52.0); HEMOGLOBIN 9.9 g/dl (13.5-17.5); MEAN CORPUSCULAR HEMOGLOBIN 30.5 pg (27.0-33.0); MEAN CORPUSCULAR HGB CONC 32.7 g/dl (32.0-36.5); MEAN CORPUSCULAR VOLUME 93.2 fl (80.0-96.0); RED BLOOD COUNT 3.25 10^6/uL (4.30-6.10); WHITE BLOOD COUNT 2.1 10^3/uL (4.0-10.0)
[2018-03-14 07:00] LABS: PLATELET COUNT, AUTOMATED 35 10^3/uL (150-450)
[2018-03-14 07:04] LABS: INR 1.87; PROTHROMBIN TIME 21.8 SECONDS (12.1-14.4)
[2018-03-14 07:15] LABS: ALBUMIN 3.2 GM/DL (3.2-5.2); ALT/SGPT 12 U/L (12-78); BILIRUBIN,TOTAL 1.9 MG/DL (0.2-1.0); BLOOD UREA NITROGEN 10 MG/DL (7-18); CALCIUM LEVEL 8.2 MG/DL (8.8-10.2); CARBON DIOXIDE LEVEL 25 MEQ/L (21-32); CHLORIDE LEVEL 106 MEQ/L (98-107); CREATININE FOR GFR 0.73 MG/DL (0.70-1.30); GLOMERULAR FILTRATION RATE > 60.0 (>42); GLUCOSE, FASTING 90 MG/DL (70-100); MAGNESIUM LEVEL 1.4 MG/DL (1.8-2.4); POTASSIUM SERUM 3.4 MEQ/L (3.5-5.1); SODIUM LEVEL 141 MEQ/L (136-145); TOTAL PROTEIN 5.7 GM/DL (6.4-8.2)
[2018-03-14] MEDS ORDERED: POTASSIUM CHLORIDE 10 MEQ SR TABLET PO ONE (08:00)
[2018-03-14] MEDS: MIDODRINE 2.5 MG TAB PO SCH ×3 (08:37→15:41)
[2018-03-14] MEDS: FOLIC ACID 1 MG TAB PO SCH (08:37)
[2018-03-14] MEDS: SERTRALINE HCL 50 MG TAB PO SCH (08:37)
[2018-03-14] MEDS: LACTOBACILLUS ACIDOPHILUS CAP (BACID) PO SCH ×3 (08:37→20:11)
[2018-03-14] MEDS: VITAMIN B COMPLEX/VIT C CAP PO SCH (08:37)
[2018-03-14] MEDS: PHYTONADIONE 5 MG TAB PO SCH (08:37)
[2018-03-14] MEDS: MULTIVITAMINS/MINERALS THERAP 1 TAB PO SCH (08:37)
[2018-03-14] MEDS: cefTRIAXone SOD 1 GM in D5W MINI-BAG PLUS 50 ML IV SCH (08:38)
[2018-03-14] MEDS: PANTOPRAZOLE 40MG INJ (PROTONIX) (C9113) IV SCH ×2 (08:38→20:11)
[2018-03-14] MEDS: MAG SULF 1GM/100ML (MAG RUN) 1 GM in APPROPRIATE DILUENT 1 EA IV SCH (08:38)
--- NOTE | 2018-03-14 10:41 | IPNPDOC ---
Text Note Date of Service The patient was seen on 03/14/18. NOTE Subjective: No BRBPR. No diarrhea/abd pain. Feels well. Objective: Vitals: (see below) General: No acute distress, laying comfortably in bed. HEENT: Moist mucous membranes. Neck: No JVD or lymphadenopathy Cardiac: RRR, No murmurs Pulm: Clear to auscultation b/l. No wheezing, rhonchi Abd: NT/ND + BS. caput medusae/spider angioma. No rebound guarding or rigidity. Ext: No edema or cyanosis Labs (see below) Assessment/Plan 1. Status post septic shock secondary to C. difficile as well as urinary tract infection. Improved. Off Levophed. Rocephin for uti. No leukocytosis. 2. Decompensated cirrhosis. Improving. INR less than 1.5. s/p paracentesis 03/09, with 5.2L Removed -received albumin. Denies any abdominal pain. Started on Midodrine given relative hypotension, initially started on Flomax however this is discontinued given hypotension., Albumin infusion q8h we'll also send for blood cultures. Hold lactulose for now. 3. C. difficile on vancomycin by mouth. We'll need to closely monitor this patient is currently on lactulose as well for hepatic encephalopathy. 4. Pancytopenia secondary to cirrhosis. Chronic. - s/p PRBC/platelet transfusion. s/p BRBPR - pt does not want endoscopy at this time, and would like conservative measures. Stable today. 5. Remote history of alcohol abuse. 6. Coagulopathy secondary to cirrhosis and liver failure. Status post vitamin K, FFP 7. History of chronic pancreatitis. Denies pain at this time. 8. History of COPD- no wheezing at this time. Continue nebs 9. History of hepatocellular carcinoma. GI consulted by Dr. Donovan. ?recurrence. Pt states he would like to f/u with his Oncologist/GI in [place], rather than having workup here. AFP sent. DVT prophy: SCDs Overall prognosis guarded. Patient is aware. I had an extensive conversation with him regarding his CODE STATUS and he would like to remain full code. Physical therapy ordered VS,Fishbone, I+O VS, Fishbone, I+O Laboratory Tests 03/14/18 06:28 Red Blood Count 3.25 L, Mean Corpuscular Volume 93.2, Mean Corpuscular Hemoglobin 30.5, Mean Corpuscular Hemoglobin Concent 32.7, Red Cell Distribution Width 16.7 H, Calcium Level 8.2 L, Aspartate Amino Transf (AST/SGOT) 14, Alanine Aminotransferase (ALT/SGPT) 12, Alkaline Phosphatase 29 L, Total Bilirubin 1.9 #H, Total Protein 5.7 L, Albumin 3.2 Vital Signs Date Time Temp Pulse Resp B/P (MAP) Pulse Ox O2 Delivery O2 Flow Rate FiO2 03/14/18 08:30 73 106/65 (79) 78 106/71 (83) 84 110/61 (77) 03/14/18 08:00 97.0 20 98 Room Air 03/09/18 16:00 1.0 35 I&O- Last 24 Hours up to 6 AM 03/14/18 06:00 Intake Total 1645 ml Output Total 310 ml Balance 1335 ml JAYY JOHNSON MD Mar 14, 2018 10:41
[2018-03-15] VITALS (8 sets, daily range): BP systolic 72–112; BP diastolic 50–61
[2018-03-15] MEDS: VANCOMYCIN ORAL SOL 250MG/5ML ORAL SYRINGE PO SCH ×4 (00:18→17:46)
[2018-03-15] MEDS: SUCRALFATE 1 GM TAB PO SCH ×4 (00:18→17:45)
[2018-03-15] MEDS: IPRATROPIUM 0.5MG/ALBUTEROL 2.5MG INH SOL UD 3ML (DUONEB)(J7620) NEB SCH ×4 (02:00→20:42)
[2018-03-15] MEDS: SODIUM CHLORIDE 0.9% INJ 10 ML SYR IV SCH ×3 (06:03→21:21)
[2018-03-15 06:27] LABS: HEMATOCRIT 32.6 % (42.0-52.0); HEMOGLOBIN 10.7 g/dl (13.5-17.5); MEAN CORPUSCULAR HEMOGLOBIN 30.6 pg (27.0-33.0); MEAN CORPUSCULAR HGB CONC 32.8 g/dl (32.0-36.5); MEAN CORPUSCULAR VOLUME 93.1 fl (80.0-96.0); WHITE BLOOD COUNT 2.8 10^3/uL (4.0-10.0)
[2018-03-15 06:51] LABS: BLOOD UREA NITROGEN 11 MG/DL (7-18); CALCIUM LEVEL 8.2 MG/DL (8.8-10.2); CARBON DIOXIDE LEVEL 26 MEQ/L (21-32); CHLORIDE LEVEL 108 MEQ/L (98-107); CREATININE FOR GFR 0.77 MG/DL (0.70-1.30); GLOMERULAR FILTRATION RATE > 60.0 (>42); GLUCOSE, FASTING 93 MG/DL (70-100); POTASSIUM SERUM 3.4 MEQ/L (3.5-5.1); SODIUM LEVEL 142 MEQ/L (136-145)
[2018-03-15] MEDS: MIDODRINE 2.5 MG TAB PO SCH ×3 (08:00→15:33)
[2018-03-15] MEDS ORDERED: POTASSIUM CHLORIDE 10 MEQ SR TABLET PO ONE (09:00)
[2018-03-15 09:08] LABS: HEMATOCRIT 33.9 % (42.0-52.0); HEMOGLOBIN 11.2 g/dl (13.5-17.5); MEAN CORPUSCULAR VOLUME 90.9 fl (80.0-96.0); RED BLOOD COUNT 3.73 10^6/uL (4.30-6.10); WHITE BLOOD COUNT 3.2 10^3/uL (4.0-10.0)
[2018-03-15 09:12] LABS: PLATELET COUNT, AUTOMATED 44 10^3/uL (150-450)
[2018-03-15 09:28] LABS: PLTBLUE- EDTA FREE CALC 28 K/mm3 (172-450)
[2018-03-15] MEDS: LACTOBACILLUS ACIDOPHILUS CAP (BACID) PO SCH ×3 (09:35→21:21)
[2018-03-15] MEDS: PANTOPRAZOLE 40MG INJ (PROTONIX) (C9113) IV SCH ×2 (09:35→21:21)
[2018-03-15] MEDS: MULTIVITAMINS/MINERALS THERAP 1 TAB PO SCH (09:35)
[2018-03-15] MEDS: FOLIC ACID 1 MG TAB PO SCH (09:35)
[2018-03-15] MEDS: SERTRALINE HCL 50 MG TAB PO SCH (09:35)
[2018-03-15] MEDS: PHYTONADIONE 5 MG TAB PO SCH (09:36)
[2018-03-15] MEDS: cefTRIAXone SOD 1 GM in D5W MINI-BAG PLUS 50 ML IV SCH (09:36)
[2018-03-15 09:37] LABS: ALBUMIN 2.9 GM/DL (3.2-5.2); BILIRUBIN,DIRECT 0.5 MG/DL (0.0-0.2); BILIRUBIN,TOTAL 1.2 MG/DL (0.2-1.0); C REACTIVE PROTEIN QUANTITATIV 2.03 MG/DL (0.00-0.30); TOTAL PROTEIN 5.8 GM/DL (6.4-8.2)
[2018-03-15 10:02] LABS: PLTBLUE- EDTA FREE MACHINE 25 10^3/uL (172-450)
[2018-03-15] MEDS: VITAMIN B COMPLEX/VIT C CAP PO SCH (10:43)
--- NOTE | 2018-03-15 10:52 | IPNPDOC ---
Text Note Date of Service The patient was seen on 03/15/18. NOTE Subjective: States he feels well. denies Abd pain. No CP/SOB. Objective: Vitals: (see below) General: No acute distress, laying comfortably in bed. HEENT: Moist mucous membranes. Neck: No JVD or lymphadenopathy Cardiac: RRR, No murmurs Pulm: Clear to auscultation b/l. No wheezing, rhonchi Abd: NT/ND + BS. caput medusae/spider angioma. No rebound guarding or rigidity. Ext: No edema or cyanosis Labs (see below) Assessment/Plan 1. Status post septic shock secondary to C. difficile as well as urinary tract infection. Improved. Off Levophed. Rocephin for uti. No leukocytosis. 2. Decompensated cirrhosis. Improving. INR less than 1.5. s/p paracentesis 03/09, with 5.2L Removed -received albumin. Denies any abdominal pain. Started on Midodrine given relative hypotension, initially started on Flomax however this is discontinued given hypotension., Albumin infusion. Bld cx negative. Diarrhea resolved. Restart lactulose. 3. C. difficile on vancomycin by mouth. We'll need to closely monitor this patient is currently on lactulose as well for hepatic encephalopathy. 4. Pancytopenia secondary to cirrhosis. Chronic. - s/p PRBC/platelet transfusion. s/p BRBPR - pt does not want endoscopy at this time, and would like conservative measures. Stable today. 5. Remote history of alcohol abuse. 6. Coagulopathy secondary to cirrhosis and liver failure. Status post vitamin K, FFP 7. History of chronic pancreatitis. Denies pain at this time. 8. History of COPD- no wheezing at this time. Continue nebs 9. History of hepatocellular carcinoma. GI consulted by Dr. Donovan. ?recurrence. Pt states he would like to f/u with his Oncologist/GI in [place], rather than having workup here. AFP sent. DVT prophy: SCDs Overall prognosis guarded. Patient is aware. I had an extensive conversation with him regarding his CODE STATUS and he would like to remain full code. Physical therapy on board. VS,Fishbone, I+O VS, Fishbone, I+O Laboratory Tests 03/15/18 06:04 Red Blood Count 3.50 L, Mean Corpuscular Volume 93.1, Mean Corpuscular Hemoglobin 30.6, Mean Corpuscular Hemoglobin Concent 32.8, Red Cell Distribution Width 16.5 H, Calcium Level 8.2 L 03/15/18 08:48 Red Blood Count 3.73 L, Mean Corpuscular Volume 90.9, Mean Corpuscular Hemoglobin 30.0, Mean Corpuscular Hemoglobin Concent 33.0, Red Cell Distribution Width 16.4 H Vital Signs Date Time Temp Pulse Resp B/P (MAP) Pulse Ox O2 Delivery O2 Flow Rate FiO2 03/15/18 09:00 94/54 (67) 03/15/18 08:00 97.3 83 18 99 Nasal Cannula 2.0 03/09/18 16:00 35 I&O- Last 24 Hours up to 6 AM 03/15/18 06:00 Intake Total 340 ml Output Total 295 ml Balance 45 ml JAYY JOHNSON MD Mar 15, 2018 10:52
[2018-03-15] MEDS ORDERED: LACTULOSE 20 GM/30 ML SYRUP UD PO ONE (11:00)
--- NOTE | 2018-03-15 16:38 | CR ---
DATE OF CONSULTATION: 03/15/2018 Asked to consult by Dr. Pinedo for evaluation of possible Clostridium (C) difficile colitis / urinary tract infection. HISTORY OF PRESENT ILLNESS: Mr. Orbegon is a 77-year-old gentleman with a history of hepatocellular carcinoma and liver cirrhosis who presents with chief complaint of increasing shortness of breath and cough productive of yellow phlegm of 4 days duration. The patient has a history of chronic obstructive pulmonary disease (COPD) oxygen dependent. He denied having a fever, chills, hemoptysis, headache, nausea, vomiting or abdominal pain when he came to the hospital. He has chronic diarrhea. The patient takes lactulose for liver cirrhosis. He was confused on admission. Initially was admitted to the intensive care unit (ICU). There was concern of fluid overload versus pneumonia and therefore he was started on Levaquin, then he was switched to Rocephin and Zithromax, eventually Rocephin was continued and he is currently day #9. Urinalysis had too numerous to count white cells, blood culture was not done on admission. He was continued on Rocephin and started on vancomycin at dose of 250 mg four times a day. Today he feels well. He is anxious to go home. He has been ambulatory. He has no complaints. PAST MEDICAL HISTORY: Significant for alcoholic liver cirrhosis with recurrent gastrointestinal (GI) bleeding, abdominal aortic aneurysm, COPD on oxygen at home, depression, hypercholesteremia, chronic pancreatitis, gout. PAST SURGICAL HISTORY: Paracentesis, esophageal banding, tonsillectomy, endovascular abdominal aortic aneurysm (AAA) repair with four stents. SOCIAL HISTORY: Lives with his and kids and grandkids. Quit smoking 26 years ago. He has been sober for 22 weeks. He denies illicit drug use. ALLERGIES: Bee venom and CONTRAST MEDIA. MEDICATIONS: - lactulose 15 mL by mouth twice a day - Rocephin 1 gram IV every 24 hours, currently day #9 - vitamin K 5 mg by mouth daily - midodrine 5 mg by mouth three times day - Levophed was given to him on 03/10/2018, that has been discontinued - probiotic one tablet by mouth BID - Vancomycin 250 mg by mouth every 6 hours - vitamin B complex one capsule daily - folic acid 1 mg daily - multivitamin one tablet daily - Zoloft 150 mg daily - Protonix 40 mg IV every 12 hours - albuterol/Atrovent nebulizers - Carafate 1 gram by mouth every 6 hours LABORATORY DATA: White count 3.2, hemoglobin 11.2, hematocrit 33.9, platelets 44. Sodium 142, potassium 3.4, chloride 108, bicarbonate 26, BUN 11, creatinine 0.77, glucose 93, calcium 8.2, bilirubin 1.2, AST 14, ALT 14, alkaline phosphatase 32, CRP 2.03 down from 3.01. Stool for C. diff was positive on 03/07/2018. Blood cultures two sets were negative. Respiratory panel was negative. AFB smear and culture from his ascites fluid is pending. Gram stain and cultures were negative. Repeat blood cultures on 03/12/2018 was negative and urine culture was negative. Peritoneal fluid had 39 white cells with 51% monocytes and 48 PMNs. IMAGING STUDIES: Chest x-ray done on 03/12/2018, shows a right internal jugular (IJ) central line, bilateral pleural effusion, right more than left. No definite infiltrate. Paracentesis done on 03/09/2018, 5100 mL of yellow fluid was drawn and sent for analysis. Chest CT done on 03/07/2018, showed a large sized right pleural effusion with overlying atelectasis, nonspecific faint ground glass haziness secondary to atelectasis, severe aortic and coronary calcification, 4.6 x 3.1 right hepatic lobe mass suspicious for hepatocellular carcinoma. Alpha-fetoprotein was 2.7. IMPRESSION: This is a 77-year-old gentleman who was admitted with increasing cough and shortness of breath, treated with diuresis. He was also diagnosed with possible Clostridium (C) colitis versus just colonization, treated with by mouth vancomycin. Urinalysis had pyuria, culture was not sent. He was treated with Rocephin for the past 9 days. Clinically the patient feels much better. He does not have diarrhea. His shortness of breath has improved. He has been diuresed. The patient is anxious to get home. PLAN: Discontinue IV Rocephin, the patient has finished a 7-day course. Discontinue central line. Consider removing Garcia catheter if he does not have urinary retention. Continue probiotics twice a day and continue by mouth vancomycin for five more days after IV Rocephin was discontinued. Dose could be decreased to 125 mg four times a day. MTDD
[2018-03-15] MEDS ORDERED: SLF 3 ML SYR IV PRN (17:30)
[2018-03-15] MEDS: SLF 3 ML SYR IV SCH (21:21)
[2018-03-15] MEDS: LACTULOSE 20 GM/30 ML SYRUP UD PO SCH (21:21)
[2018-03-16] VITALS (7 sets, daily range): BP systolic 88–98; BP diastolic 46–60
[2018-03-16] MEDS: SUCRALFATE 1 GM TAB PO SCH ×4 (00:10→18:50)
[2018-03-16] MEDS: VANCOMYCIN ORAL SOL 250MG/5ML ORAL SYRINGE PO SCH ×4 (00:10→18:50)
[2018-03-16] MEDS: IPRATROPIUM 0.5MG/ALBUTEROL 2.5MG INH SOL UD 3ML (DUONEB)(J7620) NEB SCH ×4 (02:00→22:47)
[2018-03-16] MEDS: SODIUM CHLORIDE 0.9% INJ 10 ML SYR IV SCH ×3 (05:17→22:00)
[2018-03-16] MEDS: SLF 3 ML SYR IV SCH ×3 (05:32→22:00)
[2018-03-16] MEDS: MIDODRINE 2.5 MG TAB PO SCH ×3 (08:32→16:27)
[2018-03-16] MEDS: MULTIVITAMINS/MINERALS THERAP 1 TAB PO SCH (08:32)
[2018-03-16] MEDS: VITAMIN B COMPLEX/VIT C CAP PO SCH (08:32)
[2018-03-16] MEDS: PHYTONADIONE 5 MG TAB PO SCH (08:32)
[2018-03-16] MEDS: LACTOBACILLUS ACIDOPHILUS CAP (BACID) PO SCH ×3 (08:33→20:14)
[2018-03-16] MEDS: FOLIC ACID 1 MG TAB PO SCH (08:33)
[2018-03-16] MEDS: PANTOPRAZOLE 40MG INJ (PROTONIX) (C9113) IV SCH ×2 (08:33→20:14)
[2018-03-16] MEDS: LACTULOSE 20 GM/30 ML SYRUP UD PO SCH ×2 (08:33→20:14)
[2018-03-16] MEDS: SERTRALINE HCL 50 MG TAB PO SCH (08:33)
[2018-03-16 08:45] LABS: HEMATOCRIT 37.4 % (42.0-52.0); HEMOGLOBIN 12.2 g/dl (13.5-17.5); MEAN CORPUSCULAR HEMOGLOBIN 30.3 pg (27.0-33.0); MEAN CORPUSCULAR HGB CONC 32.6 g/dl (32.0-36.5); RED BLOOD COUNT 4.02 10^6/uL (4.30-6.10); WHITE BLOOD COUNT 3.5 10^3/uL (4.0-10.0)
[2018-03-16 08:46] LABS: PLATELET COUNT, AUTOMATED 44 10^3/uL (150-450)
[2018-03-16 09:11] LABS: ALBUMIN 2.9 GM/DL (3.2-5.2); ALT/SGPT 12 U/L (12-78); BILIRUBIN,TOTAL 1.3 MG/DL (0.2-1.0); BLOOD UREA NITROGEN 12 MG/DL (7-18); CALCIUM LEVEL 8.6 MG/DL (8.8-10.2); CARBON DIOXIDE LEVEL 26 MEQ/L (21-32); CHLORIDE LEVEL 108 MEQ/L (98-107); CREATININE FOR GFR 0.72 MG/DL (0.70-1.30); GLOMERULAR FILTRATION RATE > 60.0 (>42); GLUCOSE, FASTING 85 MG/DL (70-100); MAGNESIUM LEVEL 1.6 MG/DL (1.8-2.4); POTASSIUM SERUM 3.7 MEQ/L (3.5-5.1); SODIUM LEVEL 140 MEQ/L (136-145); TOTAL PROTEIN 5.8 GM/DL (6.4-8.2)
[2018-03-16] MEDS ORDERED: POTASSIUM CHLORIDE 10 MEQ SR TABLET PO ONE (13:15)
[2018-03-16] MEDS ORDERED: MAG SULF 1GM/100ML (MAG RUN) 1 GM in APPROPRIATE DILUENT 1 EA IV ONE (13:15)
--- NOTE | 2018-03-16 19:33 | IPN ---
DATE: 03/16/2018 The patient is seen and examined. No acute events overnight. Denies any chest pain, pressure or discomfort. Denies any abdominal pain. VITAL SIGNS: Temperature 99.2, pulse 74, respirations 19, blood pressure (BP) 90/48, pulse oximetry 95% on room air. LABORATORY: White blood count (WBC) 3.5. Hemoglobin and hematocrit 12.2/37.4, platelets 44. Chemistry: Sodium 140, potassium 3.7, chloride 108, bicarbonate 26, BUN 12, creatinine 0.7.2. PHYSICAL EXAMINATION: GENERAL: The patient is alert, comfortable, in no acute distress. HEENT: Moist mucous membranes. NECK: Supple. CARDIAC: Regular S1, S2. PULMONARY: Bilateral clear to auscultation. ABDOMEN: Caput medusae, spider angioma. No rebound. No guarding. Positive bowel sounds. EXTREMITIES: No edema in bilateral lower extremities. ASSESSMENT AND PLAN: This is a 77-year-old male patient with underlying medical history of hypertension, recurrent gastrointestinal (GI) bleed, abdominal aortic aneurysm, acute hepatitis secondary to alcohol abuse causing cirrhosis and ascites, history of chronic obstructive pulmonary disease (COPD) on home oxygen 2 liters, depression, gastroesophageal reflux disease (GERD), chronic pancreatitis, gout, also with hepatocellular carcinoma that is treated presented with shortness of breath, found to be having worsening cirrhosis, hypotension, anemia, thrombocytopenia, pleural effusion and also found to have Clostridium difficile infection. PROBLEMS: 1. Status post septic shock secondary to Clostridium difficile infection, as well as urinary tract infection (UTI) improved off of Levophed. Completed Rocephin. No further leukocytosis. Currently on vancomycin by mouth. Triple lumen central line has been discontinued. 2. Decompensated cirrhosis improved. INR is less than 1.5. Status post paracentesis. Received albumin, midodrine for hypotension. Culture appreciated. Restarted on Lactulose. 3. Clostridium difficile colitis. Continue vancomycin by mouth. Further recommendation as per infectious disease. 4. Pancytopenia secondary to cirrhosis, status post packed red blood cells and platelet transfusion. The patient was also bright red blood per rectum, but refused endoscopy and would like to pursue conservative management. Risk and benefits have been explained to the patient. Gastroenterology has also been consulted. 5. Remote history of alcohol abuse, complicated with cirrhosis. Management as per above. 6. Coagulopathy secondary to cirrhosis and live failure. Status post vitamin K and fresh frozen plasma. INR has been improved. Will monitor closely. Continue vitamin K. 7. Chronic pancreatitis. Denies any significant pain. 8. History of chronic obstructive pulmonary disease (COPD), currently does not have any wheeze. Continue nebulizers. 9. History of hepatocellular carcinoma, consulted gastroenterology. Questionable recurrence. Followup with oncology as an outpatient. 10. Urinary retention. Unable to tolerate Flomax, voiding trial. If the patient fails, will reinsert the Garcia catheter. 11. Deep vein thrombosis (DVT) prophylaxis. TEDs and sequential. Avoid pharmacological agent given cirrhosis with multiple episodes of gastrointestinal (GI) bleed. 12. Depression. Continue current medication. DISPOSITION: Pending physical therapy (PT), clinical improvement. Acute rehabilitation screening.
[2018-03-17] VITALS (7 sets, daily range): BP systolic 91–120; BP diastolic 50–60
[2018-03-17] MEDS: SUCRALFATE 1 GM TAB PO SCH ×4 (01:06→17:37)
[2018-03-17] MEDS: VANCOMYCIN ORAL SOL 250MG/5ML ORAL SYRINGE PO SCH ×4 (01:07→17:37)
[2018-03-17] MEDS: IPRATROPIUM 0.5MG/ALBUTEROL 2.5MG INH SOL UD 3ML (DUONEB)(J7620) NEB SCH ×4 (02:00→20:50)
[2018-03-17] MEDS: SODIUM CHLORIDE 0.9% INJ 10 ML SYR IV SCH ×3 (06:00→21:17)
[2018-03-17] MEDS: SLF 3 ML SYR IV SCH ×3 (06:00→21:17)
[2018-03-17 06:24] LABS: HEMATOCRIT 34.6 % (42.0-52.0); HEMOGLOBIN 11.3 g/dl (13.5-17.5); MEAN CORPUSCULAR HEMOGLOBIN 30.2 pg (27.0-33.0); MEAN CORPUSCULAR HGB CONC 32.7 g/dl (32.0-36.5); MEAN CORPUSCULAR VOLUME 92.5 fl (80.0-96.0); RED BLOOD COUNT 3.74 10^6/uL (4.30-6.10); WHITE BLOOD COUNT 3.8 10^3/uL (4.0-10.0)
[2018-03-17 06:26] LABS: PLATELET COUNT, AUTOMATED 43 10^3/uL (150-450)
[2018-03-17 06:53] LABS: ALBUMIN 2.5 GM/DL (3.2-5.2); ALT/SGPT 13 U/L (12-78); BILIRUBIN,TOTAL 1.3 MG/DL (0.2-1.0); BLOOD UREA NITROGEN 12 MG/DL (7-18); CALCIUM LEVEL 8.4 MG/DL (8.8-10.2); CARBON DIOXIDE LEVEL 22 MEQ/L (21-32); CHLORIDE LEVEL 109 MEQ/L (98-107); CREATININE FOR GFR 0.74 MG/DL (0.70-1.30); GLOMERULAR FILTRATION RATE > 60.0 (>42); GLUCOSE, FASTING 100 MG/DL (70-100); MAGNESIUM LEVEL 1.6 MG/DL (1.8-2.4); POTASSIUM SERUM 3.9 MEQ/L (3.5-5.1); SODIUM LEVEL 142 MEQ/L (136-145); TOTAL PROTEIN 5.7 GM/DL (6.4-8.2)
[2018-03-17] MEDS ORDERED: MAG SULF 1GM/100ML (MAG RUN) 1 GM in APPROPRIATE DILUENT 1 EA IV ONE (08:00)
--- NOTE | 2018-03-17 08:16 | IPN ---
DATE: 03/16/2018 Rommel seems to be doing well. His central line was removed yesterday and his Garcia catheter was removed today. He has no nausea, vomiting or diarrhea. He has soft pasty stools. No abdominal pain. He is grumpy whenever asked to get out of bed but he does it and is doing fairly well. He has been evaluated for acute rehabilitation. Antibiotics IV Rocephin was discontinued yesterday after he finished 9-day course. LABORATORY DATA: White count 3.5, hemoglobin 12.2, hematocrit 37.4, platelets 44. Sodium 140, potassium 3.7, chloride 108, bicarb 26, BUN 12, creatinine 0.72, glucose 85, calcium 8.6, magnesium 1.6, bilirubin 1.3. IMPRESSION: 1. Sepsis status post 9 days of IV Rocephin, possibly of urinary origin versus pulmonary. The patient is doing well. 2. C difficile, positive PCR in a patient who had been on lactulose. The patient had colitis. He did not come with GI symptoms. The patient's diarrhea has resolved. I would suggest treating him for 5 more days after antibiotics have been discontinued. That would be until 03/20/2018 with vancomycin 125 mg four times a day. Continue with probiotics. 3. Liver cirrhosis from alcohol abuse with severe pancytopenia stable at this point. PLAN: Infectious disease signing off. Vancomycin to be continued until 03/20/2018. Continue probiotics.
[2018-03-17] MEDS: LACTOBACILLUS ACIDOPHILUS CAP (BACID) PO SCH ×3 (09:02→21:16)
[2018-03-17] MEDS: SERTRALINE HCL 50 MG TAB PO SCH (09:02)
[2018-03-17] MEDS: PANTOPRAZOLE 40MG INJ (PROTONIX) (C9113) IV SCH ×2 (09:02→21:17)
[2018-03-17] MEDS: PHYTONADIONE 5 MG TAB PO SCH (09:02)
[2018-03-17] MEDS: MULTIVITAMINS/MINERALS THERAP 1 TAB PO SCH (09:02)
[2018-03-17] MEDS: MIDODRINE 2.5 MG TAB PO SCH ×3 (09:02→15:43)
[2018-03-17] MEDS: LACTULOSE 20 GM/30 ML SYRUP UD PO SCH ×2 (09:02→21:16)
[2018-03-17] MEDS: FOLIC ACID 1 MG TAB PO SCH (09:03)
[2018-03-17] MEDS: VITAMIN B COMPLEX/VIT C CAP PO SCH (13:00)
--- NOTE | 2018-03-17 18:18 | IPNPDOC ---
Text Note Date of Service The patient was seen on 03/17/18. NOTE The patient is seen and examined. No acute events overnight. Denies any chest pain, pressure or discomfort. Denies any abdominal pain. diarrhea improved PHYSICAL EXAMINATION: GENERAL: The patient is alert, comfortable, in no acute distress. HEENT: Moist mucous membranes. NECK: Supple. CARDIAC: Regular S1, S2. PULMONARY: Bilateral clear to auscultation. ABDOMEN: Caput medusae, spider angioma. No rebound. No guarding. Positive bowel sounds. EXTREMITIES: No edema in bilateral lower extremities. ASSESSMENT AND PLAN: This is a 77-year-old male patient with underlying medical history of hypertension, recurrent gastrointestinal (GI) bleed, abdominal aortic aneurysm, acute hepatitis secondary to alcohol abuse causing cirrhosis and ascites, history of chronic obstructive pulmonary disease (COPD) on home oxygen 2 liters, depression, gastroesophageal reflux disease (GERD), chronic pancreatitis, gout, also with hepatocellular carcinoma that is treated presented with shortness of breath, found to be having worsening cirrhosis, hypotension, anemia, thrombocytopenia, pleural effusion and also found to have Clostridium difficile infection. PROBLEMS: 1. Status post septic shock secondary to Clostridium difficile infection, as well as urinary tract infection (UTI) improved off of Levophed. Completed Rocephin. No further leukocytosis. Currently on vancomycin by mouth. Triple lumen central line has been discontinued. 2. Decompensated cirrhosis improved. Status post paracentesis. Received albumin, midodrine for hypotension. Culture appreciate d. Restarted on Lactulose. 3. Clostridium difficile colitis. Continue vancomycin by mouth until 03/20. Further recommendation as per infectious disease. 4. Pancytopenia secondary to cirrhosis, status post packed red blood cells and platelet transfusion. The patient was also bright red blood per rectum, but refused endoscopy and would like to pursue conservative management. Risk and benefits have been explained to the patient. Gastroenterology has also been consulted. 5. Remote history of alcohol abuse, complicated with cirrhosis. Management as per above. 6. Coagulopathy secondary to cirrhosis and live failure. Status post vitamin K and fresh frozen plasma. INR has been improved. Will monitor closely. Continue vitamin K. 7. Chronic pancreatitis. Denies any significant pain. 8. History of chronic obstructive pulmonary disease (COPD), currently does not have any wheeze. Continue nebulizers. 9. History of hepatocellular carcinoma, consulted gastroenterology. Questionable recurrence. Followup with oncology as an outpatient. 10. Urinary retention. Unable to tolerate Flomax,failed voiding trial, mann 11. Deep vein thrombosis (DVT) prophylaxis. TEDs and sequential. Avoid pharmacological agent given cirrhosis with multiple episodes of gastrointestinal (GI) bleed. 12. Depression. Continue current medication. DISPOSITION: Pending physical therapy (PT), clinical improvement. Acute rehabilitation screening. VS,Fishbone, I+O VS, Fishbone, I+O Laboratory Tests 03/17/18 06:08 Red Blood Count 3.74 L, Mean Corpuscular Volume 92.5, Mean Corpuscular Hemoglobin 30.2, Mean Corpuscular Hemoglobin Concent 32.7, Red Cell Distribution Width 16.4 H, Calcium Level 8.4 L, Aspartate Amino Transf (AST/SGOT) 21, Alanine Aminotransferase (ALT/SGPT) 13, Alkaline Phosphatase 34 L, Total Bilirubin 1.3 H, Total Protein 5.7 L, Albumin 2.5 L Vital Signs Date Time Temp Pulse Resp B/P (MAP) Pulse Ox O2 Delivery O2 Flow Rate FiO2 03/17/18 15:30 98.0 72 18 110/60 (77) 98 Room Air 03/15/18 16:00 2.0 I&O- Last 24 Hours up to 6 AM 03/17/18 06:00 Intake Total 640 ml Output Total 1075 ml Balance -435 ml BLAIRE GUPTA MD Mar 17, 2018 18:18
[2018-03-18] MEDS: SUCRALFATE 1 GM TAB PO SCH ×4 (01:04→18:16)
[2018-03-18] MEDS: VANCOMYCIN ORAL SOL 250MG/5ML ORAL SYRINGE PO SCH ×4 (01:04→18:16)
[2018-03-18] MEDS: IPRATROPIUM 0.5MG/ALBUTEROL 2.5MG INH SOL UD 3ML (DUONEB)(J7620) NEB SCH ×4 (02:00→20:00)
[2018-03-18 04:00] VITALS: BP 99/57
[2018-03-18] MEDS: SLF 3 ML SYR IV SCH ×3 (05:47→20:22)
[2018-03-18] MEDS: SODIUM CHLORIDE 0.9% INJ 10 ML SYR IV SCH ×3 (05:47→20:23)
[2018-03-18 06:09] LABS: HEMATOCRIT 32.2 % (42.0-52.0); HEMOGLOBIN 10.9 g/dl (13.5-17.5); MEAN CORPUSCULAR HEMOGLOBIN 30.5 pg (27.0-33.0); MEAN CORPUSCULAR HGB CONC 33.9 g/dl (32.0-36.5); MEAN CORPUSCULAR VOLUME 90.2 fl (80.0-96.0); RED BLOOD COUNT 3.57 10^6/uL (4.30-6.10); WHITE BLOOD COUNT 4.1 10^3/uL (4.0-10.0)
[2018-03-18 06:10] LABS: PLATELET COUNT, AUTOMATED 42 10^3/uL (150-450)
[2018-03-18 06:22] LABS: INR 1.59; PROTHROMBIN TIME 19.2 SECONDS (12.1-14.4)
[2018-03-18 06:26] LABS: ALBUMIN 2.5 GM/DL (3.2-5.2); ALT/SGPT 18 U/L (12-78); BILIRUBIN,TOTAL 1.6 MG/DL (0.2-1.0); BLOOD UREA NITROGEN 13 MG/DL (7-18); CALCIUM LEVEL 8.4 MG/DL (8.8-10.2); CARBON DIOXIDE LEVEL 22 MEQ/L (21-32); CHLORIDE LEVEL 110 MEQ/L (98-107); CREATININE FOR GFR 0.67 MG/DL (0.70-1.30); GLOMERULAR FILTRATION RATE > 60.0 (>42); GLUCOSE, FASTING 82 MG/DL (70-100); MAGNESIUM LEVEL 1.7 MG/DL (1.8-2.4); POTASSIUM SERUM 3.6 MEQ/L (3.5-5.1); SODIUM LEVEL 140 MEQ/L (136-145); TOTAL PROTEIN 5.7 GM/DL (6.4-8.2)
[2018-03-18] MEDS ORDERED: POTASSIUM CHLORIDE 10 MEQ SR TABLET PO ONE (07:30)
[2018-03-18 08:00] VITALS: BP 100/56
[2018-03-18] MEDS: PHYTONADIONE 5 MG TAB PO SCH (09:18)
[2018-03-18] MEDS: LACTULOSE 20 GM/30 ML SYRUP UD PO SCH ×2 (09:18→20:21)
[2018-03-18] MEDS: PANTOPRAZOLE 40MG INJ (PROTONIX) (C9113) IV SCH ×2 (09:18→20:22)
[2018-03-18] MEDS: SERTRALINE HCL 50 MG TAB PO SCH (09:19)
[2018-03-18] MEDS: MAGNESIUM OXIDE 400 MG TAB (MAG-OX) PO SCH ×2 (09:19→20:22)
[2018-03-18] MEDS: LACTOBACILLUS ACIDOPHILUS CAP (BACID) PO SCH ×3 (09:19→20:21)
[2018-03-18] MEDS: VITAMIN B COMPLEX/VIT C CAP PO SCH (09:20)
[2018-03-18] MEDS: MIDODRINE 2.5 MG TAB PO SCH ×3 (09:20→18:13)
[2018-03-18] MEDS: FOLIC ACID 1 MG TAB PO SCH (09:20)
[2018-03-18] MEDS: MULTIVITAMINS/MINERALS THERAP 1 TAB PO SCH (09:20)
[2018-03-18] MEDS ORDERED: MIDO2.5T PO (12:44)
[2018-03-18] MEDS ORDERED: MAG400TA PO (12:44)
[2018-03-18] MEDS ORDERED: VANC125C2 PO (12:44)
[2018-03-18] MEDS ORDERED: PHYT5TA PO (12:44)
[2018-03-18] MEDS ORDERED: LACT10SO3 PO (12:44)
[2018-03-18] MEDS ORDERED: RISATAB3 PO (12:44)
[2018-03-18 13:25] VITALS: BP 91/58
--- NOTE | 2018-03-18 18:14 | IPNPDOC ---
Text Note Date of Service The patient was seen on 03/18/18. NOTE The patient is seen and examined. No acute events overnight. Denies any chest pain, pressure or discomfort. Denies any abdominal pain. diarrhea improved PHYSICAL EXAMINATION: GENERAL: The patient is alert, comfortable, in no acute distress. HEENT: Moist mucous membranes. NECK: Supple. CARDIAC: Regular S1, S2. PULMONARY: Bilateral clear to auscultation. ABDOMEN: Caput medusae, spider angioma. No rebound. No guarding. Positive bowel sounds. EXTREMITIES: No edema in bilateral lower extremities. ASSESSMENT AND PLAN: This is a 77-year-old male patient with underlying medical history of hypertension, recurrent gastrointestinal (GI) bleed, abdominal aortic aneurysm, acute hepatitis secondary to alcohol abuse causing cirrhosis and ascites, history of chronic obstructive pulmonary disease (COPD) on home oxygen 2 liters, depression, gastroesophageal reflux disease (GERD), chronic pancreatitis, gout, also with hepatocellular carcinoma that is treated presented with shortness of breath, found to be having worsening cirrhosis, hypotension, anemia, thrombocytopenia, pleural effusion and also found to have Clostridium difficile infection. PROBLEMS: 1. Status post septic shock secondary to Clostridium difficile infection, as well as urinary tract infection (UTI) improved off of Levophed. Completed Rocephin. No further leukocytosis. Currently on vancomycin by mouth. Triple lumen central line has been discontinued. 2. Decompensated cirrhosis improved. Status post paracentesis. Received albumin, midodrine for hypotension. Culture appreciate d. Lactulose. 3. Clostridium difficile colitis. Continue vancomycin by mouth until 03/20. Further recommendation as per infectious disease. 4. Pancytopenia secondary to cirrhosis, status post packed red blood cells and platelet transfusion. The patient was also bright red blood per rectum, but refused endoscopy and would like to pursue conservative management. Risk and benefits have been explained to the patient. Gastroenterology has also been consulted. 5. Remote history of alcohol abuse, complicated with cirrhosis. Management as per above. 6. Coagulopathy secondary to cirrhosis and live failure. vitamin K INR has been improved. Will monitor closely. 7. Chronic pancreatitis. Denies any significant pain. 8. History of chronic obstructive pulmonary disease (COPD), currently does not have any wheeze. Continue nebulizers. 9. History of hepatocellular carcinoma, consulted gastroenterology. Questionable recurrence. Followup with oncology as an outpatient. 10. Urinary retention. Unable to tolerate Flomax,failed voiding trial, mann 11. Deep vein thrombosis (DVT) prophylaxis. TEDs and sequential. Avoid pharmacological agent given cirrhosis with multiple episodes of gastrointestinal (GI) bleed. 12. Depression. Continue current medication. DISPOSITION: Pending physical therapy (PT), clinical improvement. Acute rehabilitation screening. VS,Fishbone, I+O VS, Fishbone, I+O Laboratory Tests 03/18/18 05:45 Red Blood Count 3.57 L, Mean Corpuscular Volume 90.2, Mean Corpuscular Hemoglobin 30.5, Mean Corpuscular Hemoglobin Concent 33.9, Red Cell Distribution Width 16.7 H, Calcium Level 8.4 L, Aspartate Amino Transf (AST/SGOT) 27, Alanine Aminotransferase (ALT/SGPT) 18, Alkaline Phosphatase 34 L, Total Bilirubin 1.6 H, Total Protein 5.7 L, Albumin 2.5 L Vital Signs Date Time Temp Pulse Resp B/P (MAP) Pulse Ox O2 Delivery O2 Flow Rate FiO2 03/18/18 13:25 96.5 71 18 91/58 (69) 96 Room Air 03/15/18 16:00 2.0 I&O- Last 24 Hours up to 6 AM 03/18/18 06:00 Intake Total 1320 ml Output Total 1625 ml Balance -305 ml BLAIRE GUPTA MD Mar 18, 2018 18:14
[2018-03-18 22:00] VITALS: BP 106/59
[2018-03-19] MEDS: SUCRALFATE 1 GM TAB PO SCH ×5 (00:10→23:01)
[2018-03-19] MEDS: VANCOMYCIN ORAL SOL 250MG/5ML ORAL SYRINGE PO SCH ×5 (00:10→23:01)
[2018-03-19] MEDS: IPRATROPIUM 0.5MG/ALBUTEROL 2.5MG INH SOL UD 3ML (DUONEB)(J7620) NEB SCH ×4 (01:03→20:33)
[2018-03-19 06:00] VITALS: BP 115/69
[2018-03-19] MEDS: SLF 3 ML SYR IV SCH ×3 (06:00→21:17)
[2018-03-19] MEDS: SODIUM CHLORIDE 0.9% INJ 10 ML SYR IV SCH ×2 (06:00→14:00)
[2018-03-19 06:09] LABS: HEMATOCRIT 33.6 % (42.0-52.0); MEAN CORPUSCULAR HEMOGLOBIN 30.3 pg (27.0-33.0); MEAN CORPUSCULAR HGB CONC 32.7 g/dl (32.0-36.5); MEAN CORPUSCULAR VOLUME 92.6 fl (80.0-96.0); RED BLOOD COUNT 3.63 10^6/uL (4.30-6.10); WHITE BLOOD COUNT 5.1 10^3/uL (4.0-10.0)
[2018-03-19 06:11] LABS: PLATELET COUNT, AUTOMATED 45 10^3/uL (150-450)
[2018-03-19 06:38] LABS: ALBUMIN 2.6 GM/DL (3.2-5.2); ALT/SGPT 16 U/L (12-78); BILIRUBIN,TOTAL 1.6 MG/DL (0.2-1.0); BLOOD UREA NITROGEN 14 MG/DL (7-18); CALCIUM LEVEL 8.9 MG/DL (8.8-10.2); CARBON DIOXIDE LEVEL 24 MEQ/L (21-32); CHLORIDE LEVEL 110 MEQ/L (98-107); CREATININE FOR GFR 0.74 MG/DL (0.70-1.30); GLOMERULAR FILTRATION RATE > 60.0 (>42); GLUCOSE, FASTING 75 MG/DL (70-100); MAGNESIUM LEVEL 1.6 MG/DL (1.8-2.4); SODIUM LEVEL 140 MEQ/L (136-145); TOTAL PROTEIN 5.7 GM/DL (6.4-8.2)
[2018-03-19] MEDS: FOLIC ACID 1 MG TAB PO SCH (09:24)
[2018-03-19] MEDS: MULTIVITAMINS/MINERALS THERAP 1 TAB PO SCH (09:24)
[2018-03-19] MEDS: SERTRALINE HCL 50 MG TAB PO SCH (09:24)
[2018-03-19] MEDS: PANTOPRAZOLE 40MG INJ (PROTONIX) (C9113) IV SCH (09:24)
[2018-03-19] MEDS: LACTULOSE 20 GM/30 ML SYRUP UD PO SCH ×2 (09:24→20:11)
[2018-03-19] MEDS: PHYTONADIONE 5 MG TAB PO SCH (09:25)
[2018-03-19] MEDS: MIDODRINE 2.5 MG TAB PO SCH ×3 (09:25→16:17)
[2018-03-19] MEDS: MAGNESIUM OXIDE 400 MG TAB (MAG-OX) PO SCH ×2 (09:25→20:10)
[2018-03-19] MEDS: LACTOBACILLUS ACIDOPHILUS CAP (BACID) PO SCH ×3 (09:30→20:10)
[2018-03-19] MEDS: VITAMIN B COMPLEX/VIT C CAP PO SCH (10:46)
[2018-03-19] MEDS: ONDANSETRON 4MG/2ML VIAL (J2405) IV PRN (10:47)
[2018-03-19 14:00] VITALS: BP 106/56
[2018-03-19] MEDS: PANTOPRAZOLE 40MG TAB (PROTONIX) PO SCH (20:11)
--- NOTE | 2018-03-19 20:20 | IPNPDOC ---
Text Note Date of Service The patient was seen on 03/19/18. NOTE The patient is seen and examined. No acute events overnight. Denies any chest pain, pressure or discomfort. Denies any abdominal pain. diarrhea resolved PHYSICAL EXAMINATION: GENERAL: The patient is alert, comfortable, in no acute distress. HEENT: Moist mucous membranes. NECK: Supple. CARDIAC: Regular S1, S2. PULMONARY: Bilateral clear to auscultation. ABDOMEN: Caput medusae, spider angioma. No rebound. No guarding. Positive bowel sounds. EXTREMITIES: No edema in bilateral lower extremities. ASSESSMENT AND PLAN: This is a 77-year-old male patient with underlying medical history of hypertension, recurrent gastrointestinal (GI) bleed, abdominal aortic aneurysm, acute hepatitis secondary to alcohol abuse causing cirrhosis and ascites, history of chronic obstructive pulmonary disease (COPD) on home oxygen 2 liters, depression, gastroesophageal reflux disease (GERD), chronic pancreatitis, gout, also with hepatocellular carcinoma that is treated presented with shortness of breath, found to be having worsening cirrhosis, hypotension, anemia, thrombocytopenia, pleural effusion and also found to have Clostridium difficile infection. PROBLEMS: 1. Status post septic shock secondary to Clostridium difficile infection, as well as urinary tract infection (UTI) improved off of Levophed. Completed Rocephin. No further leukocytosis. completing vancomycin by mouth. Triple lumen central line has been discontinued. 2. Decompensated cirrhosis improved. Status post paracentesis. Received albumin, midodrine for hypotension. Culture appreciated. Lactulose. 3. Clostridium difficile colitis. Continue vancomycin by mouth until 03/20. Further recommendation as per infectious disease. 4. Pancytopenia secondary to cirrhosis, status post packed red blood cells and platelet transfusion. The patient was also bright red blood per rectum, but refused endoscopy and would like to pursue conservative management. Risk and benefits have been explained to the patient. Gastroenterology has also been consulted. 5. Remote history of alcohol abuse, complicated with cirrhosis. Management as per above. 6. Coagulopathy secondary to cirrhosis and live failure. vitamin K INR has been improved. Will monitor closely. 7. Chronic pancreatitis. Denies any significant pain. 8. History of chronic obstructive pulmonary disease (COPD), currently does not have any wheeze. Continue nebulizers. 9. History of hepatocellular carcinoma, consulted gastroenterology. Questionable recurrence. Followup with oncology as an outpatient. 10. Urinary retention. Unable to tolerate Flomax,failed voiding trial, mann 11. Deep vein thrombosis (DVT) prophylaxis. TEDs and sequential. Avoid pharmacological agent given cirrhosis with multiple episodes of gastrointestinal (GI) bleed. 12. Depression. Continue current medication. DISPOSITION: Pending physical therapy (PT), clinical improvement. Acute rehabilitation screening. VS,Fishbone, I+O VS, Fishbone, I+O Laboratory Tests 03/19/18 05:37 Red Blood Count 3.63 L, Mean Corpuscular Volume 92.6, Mean Corpuscular Hemoglobin 30.3, Mean Corpuscular Hemoglobin Concent 32.7, Red Cell Distribution Width 17.2 H, Calcium Level 8.9, Aspartate Amino Transf (AST/SGOT) 49 H, Alanine Aminotransferase (ALT/SGPT) 16, Alkaline Phosphatase 39 L, Total Bilirubin 1.6 H, Total Protein 5.7 L, Albumin 2.6 L Vital Signs Date Time Temp Pulse Resp B/P (MAP) Pulse Ox O2 Delivery O2 Flow Rate FiO2 03/19/18 14:00 97.9 70 18 106/56 (73) 98 03/19/18 06:41 Room Air 03/15/18 16:00 2.0 I&O- Last 24 Hours up to 6 AM 03/19/18 06:00 Intake Total 1260 ml Output Total 175 ml Balance 1085 ml BLAIRE GUPTA MD Mar 19, 2018 20:20
[2018-03-19 22:00] VITALS: BP 99/56
[2018-03-20] MEDS: IPRATROPIUM 0.5MG/ALBUTEROL 2.5MG INH SOL UD 3ML (DUONEB)(J7620) NEB SCH ×5 (02:00→20:00)
[2018-03-20] MEDS: SUCRALFATE 1 GM TAB PO SCH ×4 (05:41→23:24)
[2018-03-20] MEDS: VANCOMYCIN ORAL SOL 250MG/5ML ORAL SYRINGE PO SCH ×2 (05:41→13:28)
[2018-03-20] MEDS: SLF 3 ML SYR IV SCH ×3 (05:42→21:50)
[2018-03-20 06:23] LABS: HEMOGLOBIN 10.7 g/dl (13.5-17.5); MEAN CORPUSCULAR HEMOGLOBIN 30.2 pg (27.0-33.0); MEAN CORPUSCULAR HGB CONC 32.4 g/dl (32.0-36.5); MEAN CORPUSCULAR VOLUME 93.2 fl (80.0-96.0); RED BLOOD COUNT 3.54 10^6/uL (4.30-6.10); WHITE BLOOD COUNT 4.4 10^3/uL (4.0-10.0)
[2018-03-20 06:40] LABS: PLATELET COUNT, AUTOMATED 43 10^3/uL (150-450)
[2018-03-20 06:53] LABS: ALBUMIN 2.5 GM/DL (3.2-5.2); ALT/SGPT 26 U/L (12-78); BILIRUBIN,TOTAL 1.5 MG/DL (0.2-1.0); BLOOD UREA NITROGEN 15 MG/DL (7-18); CALCIUM LEVEL 8.5 MG/DL (8.8-10.2); CARBON DIOXIDE LEVEL 23 MEQ/L (21-32); CHLORIDE LEVEL 109 MEQ/L (98-107); CREATININE FOR GFR 0.76 MG/DL (0.70-1.30); GLOMERULAR FILTRATION RATE > 60.0 (>42); GLUCOSE, FASTING 72 MG/DL (70-100); MAGNESIUM LEVEL 1.7 MG/DL (1.8-2.4); SODIUM LEVEL 140 MEQ/L (136-145); TOTAL PROTEIN 5.8 GM/DL (6.4-8.2)
[2018-03-20] MEDS: MAGNESIUM OXIDE 400 MG TAB (MAG-OX) PO SCH ×2 (09:39→20:39)
[2018-03-20] MEDS: PANTOPRAZOLE 40MG TAB (PROTONIX) PO SCH ×2 (09:40→20:38)
[2018-03-20] MEDS: MIDODRINE 2.5 MG TAB PO SCH ×3 (09:40→17:54)
[2018-03-20] MEDS: SERTRALINE HCL 50 MG TAB PO SCH (09:40)
[2018-03-20] MEDS: LACTOBACILLUS ACIDOPHILUS CAP (BACID) PO SCH ×3 (09:40→20:38)
[2018-03-20] MEDS: VITAMIN B COMPLEX/VIT C CAP PO SCH (09:40)
[2018-03-20] MEDS: PHYTONADIONE 5 MG TAB PO SCH (09:40)
[2018-03-20] MEDS: MULTIVITAMINS/MINERALS THERAP 1 TAB PO SCH (09:40)
[2018-03-20] MEDS: FOLIC ACID 1 MG TAB PO SCH (09:40)
[2018-03-20] MEDS: LACTULOSE 20 GM/30 ML SYRUP UD PO SCH ×2 (09:41→20:38)
[2018-03-20 14:00] VITALS: BP 101/58
--- NOTE | 2018-03-20 19:49 | IPNPDOC ---
Text Note Date of Service The patient was seen on 03/20/18. NOTE The patient is seen and examined. No acute events overnight. Denies any chest pain, pressure or discomfort. Denies any abdominal pain. diarrhea resolved PHYSICAL EXAMINATION: GENERAL: The patient is alert, comfortable, in no acute distress. HEENT: Moist mucous membranes. NECK: Supple. CARDIAC: Regular S1, S2. PULMONARY: Bilateral clear to auscultation. ABDOMEN: Caput medusae, spider angioma. No rebound. No guarding. Positive bowel sounds. EXTREMITIES: No edema in bilateral lower extremities. ASSESSMENT AND PLAN: This is a 77-year-old male patient with underlying medical history of hypertension, recurrent gastrointestinal (GI) bleed, abdominal aortic aneurysm, acute hepatitis secondary to alcohol abuse causing cirrhosis and ascites, history of chronic obstructive pulmonary disease (COPD) on home oxygen 2 liters, depression, gastroesophageal reflux disease (GERD), chronic pancreatitis, gout, also with hepatocellular carcinoma that is treated presented with shortness of breath, found to be having worsening cirrhosis, hypotension, anemia, thrombocytopenia, pleural effusion and also found to have Clostridium difficile infection. PROBLEMS: 1. Status post septic shock secondary to Clostridium difficile infection, as well as urinary tract infection (UTI) improved off of Levophed. Completed Rocephin. No further leukocytosis. completed PO vancomycin. Triple lumen central line has been discontinued. 2. Decompensated cirrhosis improved. Status post paracentesis. Received albumin, midodrine for hypotension. Culture appreciated. Lactulose. 3. Clostridium difficile colitis. completed vancomycin. ID rec appreciated 4. Pancytopenia secondary to cirrhosis, status post packed red blood cells and platelet transfusion. The patient was also bright red blood per rectum, but refused endoscopy and would like to pursue conservative management. Risk and benefits have been explained to the patient. Gastroenterology has also been consulted. 5. Remote history of alcohol abuse, complicated with cirrhosis. Management as per above. 6. Coagulopathy secondary to cirrhosis and liver failure. vitamin K INR has been improved. Will monitor closely. 7. Chronic pancreatitis. Denies any significant pain. 8. History of chronic obstructive pulmonary disease (COPD), currently does not have any wheeze. Continue nebulizers. 9. History of hepatocellular carcinoma, consulted gastroenterology. Questionable recurrence. Followup with oncology as an outpatient. 10. Urinary retention. Unable to tolerate Flomax,failed voiding trial, mann 11. Deep vein thrombosis (DVT) prophylaxis. TEDs and sequential. Avoid pharmacological agent given cirrhosis with multiple episodes of gastrointestinal (GI) bleed. 12. Depression. Continue current medication. DISPOSITION: Pending physical therapy (PT), clinical improvement. Acute rehabilitation screening. VS,Fishbone, I+O VS, Fishbone, I+O Laboratory Tests 03/20/18 05:37 Red Blood Count 3.54 L, Mean Corpuscular Volume 93.2, Mean Corpuscular Hemoglobin 30.2, Mean Corpuscular Hemoglobin Concent 32.4, Red Cell Distribution Width 17.2 H, Calcium Level 8.5 L, Aspartate Amino Transf (AST/SGOT) 111 H, Alanine Aminotransferase (ALT/SGPT) 26, Alkaline Phosphatase 36 L, Total Bilirubin 1.5 H, Total Protein 5.8 L, Albumin 2.5 L Vital Signs Date Time Temp Pulse Resp B/P (MAP) Pulse Ox O2 Delivery O2 Flow Rate FiO2 03/20/18 14:00 97.7 72 17 101/58 (72) 98 Room Air 03/15/18 16:00 2.0 I&O- Last 24 Hours up to 6 AM 03/20/18 06:00 Intake Total 1618 ml Output Total 700 ml Balance 918 ml BLAIRE GUPTA MD Mar 20, 2018 19:49
[2018-03-20 22:00] VITALS: BP 93/57
[2018-03-21] MEDS: IPRATROPIUM 0.5MG/ALBUTEROL 2.5MG INH SOL UD 3ML (DUONEB)(J7620) NEB SCH ×4 (01:53→21:40)
[2018-03-21] MEDS: SUCRALFATE 1 GM TAB PO SCH ×4 (05:56→23:27)
[2018-03-21] MEDS: SLF 3 ML SYR IV SCH ×3 (05:56→21:33)
[2018-03-21 06:00] VITALS: BP 154/78
[2018-03-21 06:34] LABS: HEMATOCRIT 31.7 % (42.0-52.0); HEMOGLOBIN 10.2 g/dl (13.5-17.5); MEAN CORPUSCULAR HEMOGLOBIN 30.2 pg (27.0-33.0); MEAN CORPUSCULAR HGB CONC 32.2 g/dl (32.0-36.5); MEAN CORPUSCULAR VOLUME 93.8 fl (80.0-96.0); RED BLOOD COUNT 3.38 10^6/uL (4.30-6.10)
[2018-03-21 06:35] LABS: PLATELET COUNT, AUTOMATED 44 10^3/uL (150-450)
[2018-03-21 07:05] LABS: ALBUMIN 2.4 GM/DL (3.2-5.2); ALT/SGPT 33 U/L (12-78); BILIRUBIN,TOTAL 1.2 MG/DL (0.2-1.0); BLOOD UREA NITROGEN 15 MG/DL (7-18); CALCIUM LEVEL 8.8 MG/DL (8.8-10.2); CARBON DIOXIDE LEVEL 24 MEQ/L (21-32); CHLORIDE LEVEL 110 MEQ/L (98-107); CREATININE FOR GFR 0.71 MG/DL (0.70-1.30); GLOMERULAR FILTRATION RATE > 60.0 (>42); GLUCOSE, FASTING 70 MG/DL (70-100); MAGNESIUM LEVEL 1.4 MG/DL (1.8-2.4); POTASSIUM SERUM 3.7 MEQ/L (3.5-5.1); SODIUM LEVEL 141 MEQ/L (136-145); TOTAL PROTEIN 5.5 GM/DL (6.4-8.2)
[2018-03-21] MEDS: LACTULOSE 20 GM/30 ML SYRUP UD PO SCH ×2 (09:00→21:33)
[2018-03-21] MEDS: PHYTONADIONE 5 MG TAB PO SCH (09:28)
[2018-03-21] MEDS: MULTIVITAMINS/MINERALS THERAP 1 TAB PO SCH (09:28)
[2018-03-21] MEDS: LACTOBACILLUS ACIDOPHILUS CAP (BACID) PO SCH ×3 (09:28→21:32)
[2018-03-21] MEDS: PANTOPRAZOLE 40MG TAB (PROTONIX) PO SCH ×2 (09:28→21:32)
[2018-03-21] MEDS: VITAMIN B COMPLEX/VIT C CAP PO SCH (09:29)
[2018-03-21] MEDS: SERTRALINE HCL 50 MG TAB PO SCH (09:29)
[2018-03-21] MEDS: MAGNESIUM OXIDE 400 MG TAB (MAG-OX) PO SCH ×2 (09:29→21:32)
[2018-03-21] MEDS: FOLIC ACID 1 MG TAB PO SCH (09:29)
[2018-03-21] MEDS: MIDODRINE 2.5 MG TAB PO SCH ×3 (09:29→16:00)
[2018-03-21 14:00] VITALS: BP 103/61
--- NOTE | 2018-03-21 14:38 | IPNPDOC ---
Text Note Date of Service The patient was seen on 03/21/18. NOTE The patient is seen and examined. No acute events overnight. Denies any chest pain, pressure or discomfort. Denies any abdominal pain. diarrhea resolved PHYSICAL EXAMINATION: GENERAL: The patient is alert, comfortable, in no acute distress. HEENT: Moist mucous membranes. NECK: Supple. CARDIAC: Regular S1, S2. PULMONARY: Bilateral clear to auscultation. ABDOMEN: Caput medusae, spider angioma. No rebound. No guarding. Positive bowel sounds. EXTREMITIES: No edema in bilateral lower extremities. ASSESSMENT AND PLAN: This is a 77-year-old male patient with underlying medical history of hypertension, recurrent gastrointestinal (GI) bleed, abdominal aortic aneurysm, acute hepatitis secondary to alcohol abuse causing cirrhosis and ascites, history of chronic obstructive pulmonary disease (COPD) on home oxygen 2 liters, depression, gastroesophageal reflux disease (GERD), chronic pancreatitis, gout, also with hepatocellular carcinoma that is treated presented with shortness of breath, found to be having worsening cirrhosis, hypotension, anemia, thrombocytopenia, pleural effusion and also found to have Clostridium difficile infection. PROBLEMS: 1. Status post septic shock secondary to Clostridium difficile infection, as well as urinary tract infection (UTI) improved off of Levophed. Completed Rocephin and vanco PO. No further leukocytosis. Triple lumen central line has been discontinued. 2. Decompensated cirrhosis improved. Status post paracentesis. Received albumin, midodrine for hypotension. Culture appreciated. Lactulose. 3. Clostridium difficile colitis. completed vancomycin. ID rec appreciated 4. Pancytopenia secondary to cirrhosis, status post packed red blood cells and platelet transfusion. The patient was also bright red blood per rectum, but refused endoscopy and would like to pursue conservative management. Risk and benefits have been explained to the patient. Gastroenterology has also been consulted. bleeding resolved, hh stable 5. Remote history of alcohol abuse, complicated with cirrhosis. Management as per above. 6. Coagulopathy secondary to cirrhosis and liver failure. vitamin K INR has been improved. Will monitor closely. 7. Chronic pancreatitis. Denies any significant pain. 8. History of chronic obstructive pulmonary disease (COPD), currently does not have any wheeze. Continue nebulizers. 9. History of hepatocellular carcinoma, consulted gastroenterology. Questionable recurrence. Followup with oncology as an outpatient. 10. Urinary retention. Unable to tolerate Flomax,failed voiding trial, mann 11. Deep vein thrombosis (DVT) prophylaxis. TEDs and sequential. Avoid pharmacological agent given cirrhosis with multiple episodes of gastrointestinal (GI) bleed. 12. Depression. Continue current medication. DISPOSITION: Pending physical therapy (PT), clinical improvement. Acute rehabilitation screening. VS,Fishbone, I+O VS, Fishbone, I+O Laboratory Tests 03/21/18 05:52 Red Blood Count 3.38 L, Mean Corpuscular Volume 93.8, Mean Corpuscular Hemoglobin 30.2, Mean Corpuscular Hemoglobin Concent 32.2, Red Cell Distribution Width 17.4 H, Calcium Level 8.8, Aspartate Amino Transf (AST/SGOT) 121 H, Alanine Aminotransferase (ALT/SGPT) 33, Alkaline Phosphatase 38 L, Total Bilirubin 1.2 H, Total Protein 5.5 L, Albumin 2.4 L Vital Signs Date Time Temp Pulse Resp B/P (MAP) Pulse Ox O2 Delivery O2 Flow Rate FiO2 03/21/18 06:00 97.2 70 17 154/78 (103) 94 Room Air 03/15/18 16:00 2.0 I&O- Last 24 Hours up to 6 AM 03/21/18 06:00 Intake Total 480 ml Output Total 375 ml Balance 105 ml BLAIRE GUPTA MD Mar 21, 2018 14:38
[2018-03-21 22:00] VITALS: BP 102/55
[2018-03-22] MEDS: IPRATROPIUM 0.5MG/ALBUTEROL 2.5MG INH SOL UD 3ML (DUONEB)(J7620) NEB SCH ×4 (02:00→19:59)
[2018-03-22] MEDS: SLF 3 ML SYR IV SCH ×3 (05:47→22:00)
[2018-03-22] MEDS: SUCRALFATE 1 GM TAB PO SCH ×3 (05:47→17:49)
[2018-03-22 06:00] VITALS: BP 99/54
[2018-03-22 06:18] LABS: HEMATOCRIT 31.8 % (42.0-52.0); HEMOGLOBIN 10.2 g/dl (13.5-17.5); MEAN CORPUSCULAR HEMOGLOBIN 30.2 pg (27.0-33.0); MEAN CORPUSCULAR HGB CONC 32.1 g/dl (32.0-36.5); MEAN CORPUSCULAR VOLUME 94.1 fl (80.0-96.0); RED BLOOD COUNT 3.38 10^6/uL (4.30-6.10); WHITE BLOOD COUNT 3.2 10^3/uL (4.0-10.0)
[2018-03-22 06:20] LABS: PLATELET COUNT, AUTOMATED 41 10^3/uL (150-450)
[2018-03-22 06:52] LABS: ALBUMIN 2.3 GM/DL (3.2-5.2); ALT/SGPT 36 U/L (12-78); BILIRUBIN,TOTAL 1.2 MG/DL (0.2-1.0); BLOOD UREA NITROGEN 16 MG/DL (7-18); CALCIUM LEVEL 8.8 MG/DL (8.8-10.2); CARBON DIOXIDE LEVEL 25 MEQ/L (21-32); CHLORIDE LEVEL 109 MEQ/L (98-107); CREATININE FOR GFR 0.71 MG/DL (0.70-1.30); GLOMERULAR FILTRATION RATE > 60.0 (>42); GLUCOSE, FASTING 72 MG/DL (70-100); MAGNESIUM LEVEL 1.5 MG/DL (1.8-2.4); POTASSIUM SERUM 3.6 MEQ/L (3.5-5.1); SODIUM LEVEL 141 MEQ/L (136-145); TOTAL PROTEIN 5.7 GM/DL (6.4-8.2)
[2018-03-22] MEDS ORDERED: POTASSIUM CHLORIDE 10 MEQ SR TABLET PO ONE (07:30)
[2018-03-22] MEDS: MAG SULF 1GM/100ML (MAG RUN) 1 GM in APPROPRIATE DILUENT 1 EA IV SCH ×2 (08:20→08:22)
[2018-03-22] MEDS: MAGNESIUM OXIDE 400 MG TAB (MAG-OX) PO SCH ×2 (08:21→21:30)
[2018-03-22] MEDS: SERTRALINE HCL 50 MG TAB PO SCH (08:21)
[2018-03-22] MEDS: LACTULOSE 20 GM/30 ML SYRUP UD PO SCH ×2 (08:21→21:31)
[2018-03-22] MEDS: MIDODRINE 2.5 MG TAB PO SCH ×3 (08:21→15:59)
[2018-03-22] MEDS: PHYTONADIONE 5 MG TAB PO SCH (08:22)
[2018-03-22] MEDS: PANTOPRAZOLE 40MG TAB (PROTONIX) PO SCH ×2 (08:22→21:31)
[2018-03-22] MEDS: MULTIVITAMINS/MINERALS THERAP 1 TAB PO SCH (08:22)
[2018-03-22] MEDS: VITAMIN B COMPLEX/VIT C CAP PO SCH (08:22)
[2018-03-22] MEDS: FOLIC ACID 1 MG TAB PO SCH (08:22)
[2018-03-22] MEDS: LACTOBACILLUS ACIDOPHILUS CAP (BACID) PO SCH ×3 (08:22→21:30)
[2018-03-22 14:00] VITALS: BP 94/50
--- NOTE | 2018-03-22 18:57 | IPNPDOC ---
Text Note Date of Service The patient was seen on 03/22/18. NOTE The patient is seen and examined. No acute events overnight. Denies any chest pain, pressure or discomfort. Denies any abdominal pain. PHYSICAL EXAMINATION: GENERAL: The patient is alert, comfortable, in no acute distress. HEENT: Moist mucous membranes. NECK: Supple. CARDIAC: Regular S1, S2. PULMONARY: Bilateral clear to auscultation. ABDOMEN: Caput medusae, spider angioma. No rebound. No guarding. Positive bowel sounds. EXTREMITIES: No edema in bilateral lower extremities. ASSESSMENT AND PLAN: This is a 77-year-old male patient with underlying medical history of hypertension, recurrent gastrointestinal (GI) bleed, abdominal aortic aneurysm, acute hepatitis secondary to alcohol abuse causing cirrhosis and ascites, history of chronic obstructive pulmonary disease (COPD) on home oxygen 2 liters, depression, gastroesophageal reflux disease (GERD), chronic pancreatitis, gout, also with hepatocellular carcinoma that is treated presented with shortn ess of breath, found to be having worsening cirrhosis, hypotension, anemia, thrombocytopenia, pleural effusion and also found to have Clostridium difficile infection. PROBLEMS: 1. Status post septic shock secondary to Clostridium difficile infection, as well as urinary tract infection (UTI) improved off of Levophed. Completed Rocephin and vanco PO. No further leukocytosis. Triple lumen central line has been discontinued. 2. Decompensated cirrhosis improved. Status post paracentesis. Received albumin, midodrine for hypotension. Culture appreciated. Lactulose. 3. Clostridium difficile colitis. completed vancomycin. ID rec appreciated 4. Pancytopenia secondary to cirrhosis, status post packed red blood cells and platelet transfusion. The patient was also bright red blood per rectum, but refused endoscopy and would like to pursue conservative management. Risk and benefits have been explained to the patient. Gastroenterology has also been consulted. bleeding resolved, hh stable 5. Remote history of alcohol abuse, complicated with cirrhosis. Management as per above. 6. Coagulopathy secondary to cirrhosis and liver failure. vitamin K INR has been improved. Will monitor closely. 7. Chronic pancreatitis. Denies any significant pain. 8. History of chronic obstructive pulmonary disease (COPD), currently does not have any wheeze. Continue nebulizers. 9. History of hepatocellular carcinoma, consulted gastroenterology. Questionable recurrence. Followup with oncology as an outpatient. 10. Urinary retention. Unable to tolerate Flomax,failed voiding trial, mann 11. Deep vein thrombosis (DVT) prophylaxis. TEDs and sequential. Avoid pharmacological agent given cirrhosis with multiple episodes of gastrointestinal (GI) bleed. 12. Depression. Continue current medication. DISPOSITION: Pending physical therapy (PT), clinical improvement. Acute rehabilitation screening. VS,Fishbone, I+O VS, Fishbone, I+O Laboratory Tests 03/22/18 05:47 Red Blood Count 3.38 L, Mean Corpuscular Volume 94.1, Mean Corpuscular Hemoglobin 30.2, Mean Corpuscular Hemoglobin Concent 32.1, Red Cell Distribution Width 17.4 H, Calcium Level 8.8, Aspartate Amino Transf (AST/SGOT) 111 H, Alanine Aminotransferase (ALT/SGPT) 36, Alkaline Phosphatase 36 L, Total Bilirubin 1.2 H, Total Protein 5.7 L, Albumin 2.3 L Vital Signs Date Time Temp Pulse Resp B/P (MAP) Pulse Ox O2 Delivery O2 Flow Rate FiO2 03/22/18 14:00 97.1 18 94/50 (65) 03/22/18 06:00 69 94 Room Air I&O- Last 24 Hours up to 6 AM 03/22/18 06:00 Intake Total 440 ml Output Total 675 ml Balance -235 ml BLAIRE GUPTA MD Mar 22, 2018 18:57
[2018-03-22 22:00] VITALS: BP 102/52
[2018-03-23] MEDS: SUCRALFATE 1 GM TAB PO SCH ×4 (00:18→17:03)
[2018-03-23] MEDS: IPRATROPIUM 0.5MG/ALBUTEROL 2.5MG INH SOL UD 3ML (DUONEB)(J7620) NEB SCH ×4 (01:57→19:19)
[2018-03-23] MEDS: SLF 3 ML SYR IV SCH ×3 (05:23→20:31)
[2018-03-23 06:00] VITALS: BP 104/52
[2018-03-23 06:34] LABS: HEMATOCRIT 28.8 % (42.0-52.0); HEMOGLOBIN 9.6 g/dl (13.5-17.5); MEAN CORPUSCULAR HEMOGLOBIN 30.5 pg (27.0-33.0); MEAN CORPUSCULAR HGB CONC 33.3 g/dl (32.0-36.5); MEAN CORPUSCULAR VOLUME 91.4 fl (80.0-96.0); RED BLOOD COUNT 3.15 10^6/uL (4.30-6.10); WHITE BLOOD COUNT 3.1 10^3/uL (4.0-10.0)
[2018-03-23 06:40] LABS: PLATELET COUNT, AUTOMATED 41 10^3/uL (150-450)
[2018-03-23 07:03] LABS: ALBUMIN 2.3 GM/DL (3.2-5.2); ALT/SGPT 40 U/L (12-78); BILIRUBIN,TOTAL 1.1 MG/DL (0.2-1.0); BLOOD UREA NITROGEN 15 MG/DL (7-18); CALCIUM LEVEL 8.8 MG/DL (8.8-10.2); CARBON DIOXIDE LEVEL 25 MEQ/L (21-32); CHLORIDE LEVEL 109 MEQ/L (98-107); CREATININE FOR GFR 0.68 MG/DL (0.70-1.30); GLOMERULAR FILTRATION RATE > 60.0 (>42); GLUCOSE, FASTING 86 MG/DL (70-100); MAGNESIUM LEVEL 1.7 MG/DL (1.8-2.4); POTASSIUM SERUM 3.9 MEQ/L (3.5-5.1); SODIUM LEVEL 141 MEQ/L (136-145); TOTAL PROTEIN 5.5 GM/DL (6.4-8.2)
[2018-03-23] MEDS: LACTULOSE 20 GM/30 ML SYRUP UD PO SCH ×2 (09:03→20:31)
[2018-03-23] MEDS: MULTIVITAMINS/MINERALS THERAP 1 TAB PO SCH (09:03)
[2018-03-23] MEDS: PANTOPRAZOLE 40MG TAB (PROTONIX) PO SCH ×2 (09:03→20:30)
[2018-03-23] MEDS: MIDODRINE 2.5 MG TAB PO SCH ×3 (09:03→17:03)
[2018-03-23] MEDS: MAGNESIUM OXIDE 400 MG TAB (MAG-OX) PO SCH ×2 (09:04→20:30)
[2018-03-23] MEDS: FOLIC ACID 1 MG TAB PO SCH (09:04)
[2018-03-23] MEDS: VITAMIN B COMPLEX/VIT C CAP PO SCH (09:04)
[2018-03-23] MEDS: LACTOBACILLUS ACIDOPHILUS CAP (BACID) PO SCH ×3 (09:04→20:30)
[2018-03-23] MEDS: SERTRALINE HCL 50 MG TAB PO SCH (09:04)
[2018-03-23] MEDS: PHYTONADIONE 5 MG TAB PO SCH (09:07)
--- NOTE | 2018-03-23 09:47 | IPNPDOC ---
Date Seen The patient was seen on 03/23/18. Progress Note The patient is seen and examined. No acute events overnight. Denies any chest pain, pressure or discomfort. Denies any abdominal pain. " I feel very tired. I don't want to get up. I want to rest today." PHYSICAL EXAMINATION: GENERAL: The patient is alert, comfortable, in no acute distress. lying in bed HEENT: Moist mucous membranes. NECK: Supple. CARDIAC: Regular S1, S2. PULMONARY: Bilateral clear to auscultation. ABDOMEN: Caput medusae, spider angioma. No rebound. No guarding. Positive bowel sounds. EXTREMITIES: No edema in bilateral lower extremities. ASSESSMENT AND PLAN: This is a 77-year-old male patient with underlying medical history of hypertension, recurrent gastrointestinal (GI) bleed, abdominal aortic aneurysm, acute hepatitis secondary to alcohol abuse causing cirrhosis and ascites, history of chronic obstructive pulmonary disease (COPD) on home oxygen 2 liters, depression, gastroesophageal reflux disease (GERD), chronic pancreatitis, gout, also with hepatocellular carcinoma that is treated presented with shortness of breath, found to be having worsening cirrhosis, hypotension, anemia, thrombocytopenia, pleural effusion and also found to have Clostridium difficile infection. PROBLEMS: 1. Status post septic shock secondary to Clostridium difficile infection, as well as urinary tract infection (UTI) improved off of Levophed. Completed Rocephin and vanco PO. No further leukocytosis. Triple lumen central line has been discontinued. 2. Decompensated cirrhosis improved. Status post paracentesis. Received albumin, midodrine for hypotension. Culture appreciated. Lactulose. 3. Clostridium difficile colitis. completed vancomycin. ID rec appreciated 4. Pancytopenia secondary to cirrhosis, status post packed red blood cells and platelet transfusion. The patient was also bright red blood per rectum, but refused endoscopy and would like to pursue conservative management. Risk and benefits have been explained to the patient. Gastroenterology has also been consulted. bleeding resolved, hh stable 5. Remote history of alcohol abuse, complicated with cirrhosis. Management as per above. 6. Coagulopathy secondary to cirrhosis and liver failure. vitamin K INR has been improved. Will monitor closely. 7. Chronic pancreatitis. Denies any significant pain. 8. History of chronic obstructive pulmonary disease (COPD), currently does not have any wheeze. Continue nebulizers. 9. History of hepatocellular carcinoma, consulted gastroenterology. Questionable recurrence. Followup with oncology as an outpatient. 10. Urinary retention. Unable to tolerate Flomax,failed voiding trial, mann 11. Deep vein thrombosis (DVT) prophylaxis. TEDs and sequential. Avoid pharmacological agent given cirrhosis with multiple episodes of gastrointestinal (GI) bleed. 12. Depression. Continue current medication. DISPOSITION: Pending physical therapy (PT), clinical improvement. Acute rehabilitation screening. VS, I&O, 24H, Fishbone Vital Signs/I&O Vital Signs Date Time Temp Pulse Resp B/P (MAP) Pulse Ox O2 Delivery O2 Flow Rate FiO2 03/22/18 22:00 98.1 79 18 102/52 (69) 95 Room Air I&O- Last 24 Hours up to 6 AM 03/23/18 06:00 Intake Total 758 ml Output Total 525 ml Balance 233 ml Laboratory Data 24H LABS Laboratory Tests 2 03/23/18 06:01: Nucleated Red Blood Cells % (auto) 0.0, Immature Platelet Fraction 2.8 CBC/BMP Laboratory Tests 03/23/18 06:01 Red Blood Count 3.15 L, Mean Corpuscular Volume 91.4, Mean Corpuscular Hemoglobin 30.5, Mean Corpuscular Hemoglobin Concent 33.3, Red Cell Distribution Width 17.5 H SARA CLANCY MD Mar 23, 2018 06:46
[2018-03-23] MEDS ORDERED: MAG SULF 1GM/100ML (MAG RUN) 1 GM in APPROPRIATE DILUENT 1 EA IV ONE (10:00)
[2018-03-23 14:00] VITALS: BP 90/46
[2018-03-23 22:00] VITALS: BP 117/81
[2018-03-24] MEDS: SUCRALFATE 1 GM TAB PO SCH ×4 (00:13→17:38)
[2018-03-24] MEDS: IPRATROPIUM 0.5MG/ALBUTEROL 2.5MG INH SOL UD 3ML (DUONEB)(J7620) NEB SCH ×4 (02:00→20:00)
[2018-03-24] MEDS: SLF 3 ML SYR IV SCH ×3 (05:37→21:21)
[2018-03-24 06:00] VITALS: BP 116/57
--- NOTE | 2018-03-24 09:10 | IPNPDOC ---
Date Seen The patient was seen on 03/24/18. Progress Note The patient is seen and examined. Patient continues to complain of worsening weakness. "I feel very weak. I just want to sleep."Pt was advised to request assistance as he is a fall risk. He continues to have increasing abdominal distension, but denies any sob, nausea, abd pain. tolerating his diet. PHYSICAL EXAMINATION: GENERAL: The patient is alert, comfortable, in no acute distress. lying in bed HEENT: Moist mucous membranes. NECK: Supple. CARDIAC: Regular S1, S2. PULMONARY: Bilateral clear to auscultation. ABDOMEN: Caput medusae, spider angioma. No rebound. No guarding. Positive bowel sounds. increasing abdominal distension. EXTREMITIES: No edema in bilateral lower extremities. ASSESSMENT AND PLAN: This is a 77-year-old male patient with underlying medical history of hypertension, recurrent gastrointestinal (GI) bleed, abdominal aortic aneurysm, acute hepatitis secondary to alcohol abuse causing cirrhosis and ascites, history of chronic obstructive pulmonary disease (COPD) on home oxygen 2 liters, depression, gastroesophageal reflux disease (GERD), chronic pancreatitis, gout, also with hepatocellular carcinoma that is treated presented with shortness of breath, found to be having worsening cirrhosis, hypotension, anemia, thrombocytopenia, pleural effusion and also found to have Clostridium difficile infection. PROBLEMS: 1. Status post septic shock secondary to Clostridium difficile infection, as well as urinary tract infection (UTI) improved off of Levophed. Completed Rocephin and vanco PO. No further leukocytosis. Triple lumen central line has been discontinued. 2. Decompensated cirrhosis improved. Status post paracentesis. Received albumin, midodrine for hypotension. Culture appreciated. Lactulose. 3. Clostridium difficile colitis. completed vancomycin. ID rec appreciated 4. Pancytopenia secondary to cirrhosis, status post packed red blood cells and platelet transfusion. The patient was also bright red blood per rectum, but refused endoscopy and would like to pursue conservative management. Risk and benefits have been explained to the patient. Gastroenterology has also been consulted. bleeding resolved, hh stable 5. Remote history of alcohol abuse, complicated with cirrhosis. Management as per above. 6. Coagulopathy secondary to cirrhosis and liver failure. vitamin K INR has been improved. Will monitor closely. 7. Chronic pancreatitis. Denies any significant pain. 8. History of chronic obstructive pulmonary disease (COPD), currently does not have any wheeze. Continue nebulizers. 9. History of hepatocellular carcinoma, consulted gastroenterology. Questionable recurrence. Followup with oncology as an outpatient. 10. Urinary retention. Unable to tolerate Flomax,failed voiding trial, mann 11. Deep vein thrombosis (DVT) prophylaxis. TEDs and sequential. Avoid pharmacological agent given cirrhosis with multiple episodes of gastrointestinal (GI) bleed. 12. Depression. Continue current medication. DISPOSITION: Pt c/o increasing weakness, with difficulty ambulating. fall precautions. VS, I&O, 24H, Fishbone Vital Signs/I&O Vital Signs Date Time Temp Pulse Resp B/P (MAP) Pulse Ox O2 Delivery O2 Flow Rate FiO2 03/23/18 22:00 98.1 60 17 117/81 (93) 98 Room Air I&O- Last 24 Hours up to 6 AM 03/24/18 05:59 Intake Total 1240 ml Output Total 450 ml Balance 790 ml SARA CLANCY MD Mar 24, 2018 06:56
[2018-03-24] MEDS: SERTRALINE HCL 50 MG TAB PO SCH (09:33)
[2018-03-24] MEDS: MULTIVITAMINS/MINERALS THERAP 1 TAB PO SCH (09:33)
[2018-03-24] MEDS: LACTULOSE 20 GM/30 ML SYRUP UD PO SCH ×2 (09:33→21:20)
[2018-03-24] MEDS: PANTOPRAZOLE 40MG TAB (PROTONIX) PO SCH ×2 (09:34→21:20)
[2018-03-24] MEDS: FOLIC ACID 1 MG TAB PO SCH (09:34)
[2018-03-24] MEDS: PHYTONADIONE 5 MG TAB PO SCH (09:34)
[2018-03-24] MEDS: VITAMIN B COMPLEX/VIT C CAP PO SCH (09:34)
[2018-03-24] MEDS: LACTOBACILLUS ACIDOPHILUS CAP (BACID) PO SCH ×3 (09:34→21:20)
[2018-03-24] MEDS: MIDODRINE 2.5 MG TAB PO SCH ×3 (09:34→17:38)
[2018-03-24] MEDS: MAGNESIUM OXIDE 400 MG TAB (MAG-OX) PO SCH ×2 (09:34→21:20)
[2018-03-24 14:00] VITALS: BP 97/46
[2018-03-24 22:00] VITALS: BP 110/53
[2018-03-25] MEDS: SUCRALFATE 1 GM TAB PO SCH ×4 (00:26→18:23)
[2018-03-25] MEDS: IPRATROPIUM 0.5MG/ALBUTEROL 2.5MG INH SOL UD 3ML (DUONEB)(J7620) NEB SCH ×4 (01:02→19:34)
[2018-03-25 06:00] VITALS: BP 131/78
[2018-03-25] MEDS: SLF 3 ML SYR IV SCH ×3 (06:00→21:57)
[2018-03-25] MEDS: MAGNESIUM OXIDE 400 MG TAB (MAG-OX) PO SCH ×2 (09:39→21:56)
[2018-03-25] MEDS: MULTIVITAMINS/MINERALS THERAP 1 TAB PO SCH (09:39)
[2018-03-25] MEDS: MIDODRINE 2.5 MG TAB PO SCH ×3 (09:39→18:23)
[2018-03-25] MEDS: SERTRALINE HCL 50 MG TAB PO SCH (09:40)
[2018-03-25] MEDS: LACTULOSE 20 GM/30 ML SYRUP UD PO SCH ×2 (09:40→21:57)
[2018-03-25] MEDS: FOLIC ACID 1 MG TAB PO SCH (09:40)
[2018-03-25] MEDS: PANTOPRAZOLE 40MG TAB (PROTONIX) PO SCH ×2 (09:40→21:56)
[2018-03-25] MEDS: LACTOBACILLUS ACIDOPHILUS CAP (BACID) PO SCH ×3 (09:40→21:56)
[2018-03-25] MEDS: VITAMIN B COMPLEX/VIT C CAP PO SCH (09:40)
[2018-03-25] MEDS: PHYTONADIONE 5 MG TAB PO SCH (09:40)
--- NOTE | 2018-03-25 12:44 | IPNPDOC ---
Date Seen The patient was seen on 03/25/18. Progress Note SUBJECTIVE: Pt continues to complain of generalized weakness, with difficulty ambulating, but reluctant to increase ambulation, and prefers to be in bed all day. Despite increasing abdominal distension, no c/o nausea, vomiting, or increasing abdominal pain. PHYSICAL EXAMINATION: GENERAL: The patient is alert, comfortable, in no acute distress. lying in bed HEENT: Moist mucous membranes. NECK: Supple. CARDIAC: Regular S1, S2. PULMONARY: Bilateral clear to auscultation. ABDOMEN: Caput medusae, spider angioma. No rebound. No guarding. Positive bowel sounds. increasing abdominal distension. EXTREMITIES: No edema in bilateral lower extremities. ASSESSMENT AND PLAN: This is a 77-year-old male patient with underlying medical history of hypertension, recurrent gastrointestinal (GI) bleed, abdominal aortic aneurysm, acute hepatitis secondary to alcohol abuse causing cirrhosis and ascites, history of chronic obstructive pulmonary disease (COPD) on home oxygen 2 liters, depression, gastroesophageal reflux disease (GERD), chronic pancreatitis, gout, also with hepatocellular carcinoma that is treated presented with shortness of breath, found to be having worsening cirrhosis, hypotension, anemia, thrombocytopenia, pleural effusion and also found to have Clostridium difficile infection. PROBLEMS: 1. Status post septic shock secondary to Clostridium difficile infection, as well as urinary tract infection (UTI) improved off of Levophed. Completed Rocephin and vanco PO. No further leukocytosis. Triple lumen central line has been discontinued. 2. Decompensated cirrhosis improved. Status post paracentesis. Received albumin, midodrine for hypotension. Culture appreciated. Lactulose. 3. Clostridium difficile colitis. completed vancomycin. ID rec appreciated 4. Pancytopenia secondary to cirrhosis, status post packed red blood cells and platelet transfusion. The patient was also bright red blood per rectum, but refused endoscopy and would like to pursue conservative management. Risk and benefits have been explained to the patient. Gastroenterology has also been consulted. bleeding resolved, hh stable 5. Remote history of alcohol abuse, complicated with cirrhosis. Management as per above. 6. Coagulopathy secondary to cirrhosis and liver failure. vitamin K INR has been improved. Will monitor closely. 7. Chronic pancreatitis. Denies any significant pain. 8. History of chronic obstructive pulmonary disease (COPD), currently does not have any wheeze. Continue nebulizers. 9. History of hepatocellular carcinoma, consulted gastroenterology. Questionable recurrence. Followup with oncology as an outpatient. 10. Urinary retention. Unable to tolerate Flomax,failed voiding trial, mann 11. Deep vein thrombosis (DVT) prophylaxis. TEDs and sequential. Avoid pharmacological agent given cirrhosis with multiple episodes of gastrointestinal (GI) bleed. 12. Depression. Continue current medication. disposition: reluctant to work with physical therapy. tid oob to chair during meals. VS, I&O, 24H, Fishbone Vital Signs/I&O Vital Signs Date Time Temp Pulse Resp B/P (MAP) Pulse Ox O2 Delivery O2 Flow Rate FiO2 03/25/18 06:00 97.8 92 18 131/78 (95) 95 Room Air I&O- Last 24 Hours up to 6 AM 03/25/18 06:00 Intake Total 720 ml Output Total 450 ml Balance 270 ml SARA CLANCY MD Mar 25, 2018 08:16
[2018-03-25 14:00] VITALS: BP 102/57
[2018-03-25 22:00] VITALS: BP 101/50
[2018-03-26] MEDS: SUCRALFATE 1 GM TAB PO SCH ×4 (01:02→17:53)
[2018-03-26] MEDS: IPRATROPIUM 0.5MG/ALBUTEROL 2.5MG INH SOL UD 3ML (DUONEB)(J7620) NEB SCH ×4 (01:44→20:13)
[2018-03-26 06:00] VITALS: BP 99/52
[2018-03-26] MEDS: SLF 3 ML SYR IV SCH ×3 (06:30→22:00)
--- NOTE | 2018-03-26 08:22 | IPNPDOC ---
Date Seen The patient was seen on 03/26/18. Progress Note SUBJECTIVE: Despite midodrine, pt continues to be slightly hypotensive and c/o some dizziness when he gets up. He denies any sob, nausea, vomiting, abdominal pain, despite increasing abdominal distention, no increased LE edema is noted. Pt remains very weak but encouraged to try to get up tid and sit on the chair at the bedside for meals. He is a high risk for fall, and is on fall precautions with assistance with all ambulation. PHYSICAL EXAMINATION: GENERAL: The patient is alert, comfortable, in no acute distress. lying in bed HEENT: Moist mucous membranes. NECK: Supple. CARDIAC: Regular S1, S2. PULMONARY: Bilateral clear to auscultation. ABDOMEN: Caput medusae, spider angioma. No rebound. No guarding. Positive bowel sounds. increasing abdominal distension. EXTREMITIES: No edema in bilateral lower extremities. ASSESSMENT AND PLAN: This is a 77-year-old male patient with underlying medical history of hypertension, recurrent gastrointestinal (GI) bleed, abdominal aortic aneurysm, acute hepatitis secondary to alcohol abuse causing cirrhosis and ascites, history of chronic obstructive pulmonary disease (COPD) on home oxygen 2 liters, depression, gastroesophageal reflux disease (GERD), chronic pancreatitis, gout, also with hepatocellular carcinoma that is treated presented with shortness of breath, found to be having worsening cirrhosis, hypotension, anemia, thrombocytopenia, pleural effusion and also found to have Clostridium difficile infection. PROBLEMS: 1. Status post septic shock secondary to Clostridium difficile infection, as well as urinary tract infection (UTI) improved off of Levophed. Completed Rocephin and vanco PO. No further leukocytosis. Triple lumen central line has been discontinued. 2. Decompensated cirrhosis improved. Status post paracentesis. Received albumin, midodrine for hypotension. Culture appreciated. Lactulose. 3. Clostridium difficile colitis. completed vancomycin. ID rec appreciated 4. Pancytopenia secondary to cirrhosis, status post packed red blood cells and platelet transfusion. The patient was also bright red blood per rectum, but refused endoscopy and would like to pursue conservative management. Risk and benefits have been explained to the patient. Gastroenterology has also been consulted. bleeding resolved, hh stable 5. Remote history of alcohol abuse, complicated with cirrhosis. Management as per above. 6. Coagulopathy secondary to cirrhosis and liver failure. vitamin K INR has been improved. Will monitor closely. 7. Chronic pancreatitis. Denies any significant pain. 8. History of chronic obstructive pulmonary disease (COPD), currently does not have any wheeze. Continue nebulizers. 9. History of hepatocellular carcinoma, consulted gastroenterology. Questionable recurrence. Followup with oncology as an outpatient. 10. Urinary retention. Unable to tolerate Flomax,failed voiding trial, mann 11. Deep vein thrombosis (DVT) prophylaxis. TEDs and sequential. Avoid pharmacological agent given cirrhosis with multiple episodes of gastrointestinal (GI) bleed. 12. Depression. Continue current medication. disposition: reluctant to work with physical therapy. tid oob to chair during meals. VS, I&O, 24H, Fishbone Vital Signs/I&O Vital Signs Date Time Temp Pulse Resp B/P (MAP) Pulse Ox O2 Delivery O2 Flow Rate FiO2 03/26/18 06:00 97.8 68 18 99/52 (68) 96 Room Air I&O- Last 24 Hours up to 6 AM 03/26/18 06:00 Intake Total 700 ml Output Total 650 ml Balance 50 ml SARA CLANCY MD Mar 26, 2018 08:22
[2018-03-26] MEDS: SERTRALINE HCL 50 MG TAB PO SCH (11:22)
[2018-03-26] MEDS: VITAMIN B COMPLEX/VIT C CAP PO SCH (11:23)
[2018-03-26] MEDS: MIDODRINE 2.5 MG TAB PO SCH ×3 (11:23→17:53)
[2018-03-26] MEDS: MAGNESIUM OXIDE 400 MG TAB (MAG-OX) PO SCH ×2 (11:23→20:37)
[2018-03-26] MEDS: MULTIVITAMINS/MINERALS THERAP 1 TAB PO SCH (11:23)
[2018-03-26] MEDS: FOLIC ACID 1 MG TAB PO SCH (11:23)
[2018-03-26] MEDS: PHYTONADIONE 5 MG TAB PO SCH (11:23)
[2018-03-26] MEDS: LACTOBACILLUS ACIDOPHILUS CAP (BACID) PO SCH ×3 (11:23→20:36)
[2018-03-26] MEDS: PANTOPRAZOLE 40MG TAB (PROTONIX) PO SCH ×2 (11:23→20:37)
[2018-03-26] MEDS: LACTULOSE 20 GM/30 ML SYRUP UD PO SCH ×2 (11:24→20:37)
[2018-03-26 16:00] VITALS: BP 107/57
[2018-03-26 22:00] VITALS: BP 112/59
[2018-03-27] MEDS: SUCRALFATE 1 GM TAB PO SCH ×4 (00:45→18:17)
[2018-03-27] MEDS: IPRATROPIUM 0.5MG/ALBUTEROL 2.5MG INH SOL UD 3ML (DUONEB)(J7620) NEB SCH ×4 (01:15→20:17)
[2018-03-27 06:00] VITALS: BP 106/58
[2018-03-27] MEDS: SLF 3 ML SYR IV SCH (06:00)
[2018-03-27] MEDS: VITAMIN B COMPLEX/VIT C CAP PO SCH (08:55)
[2018-03-27] MEDS: SERTRALINE HCL 50 MG TAB PO SCH (08:56)
[2018-03-27] MEDS: MULTIVITAMINS/MINERALS THERAP 1 TAB PO SCH (08:56)
[2018-03-27] MEDS: MAGNESIUM OXIDE 400 MG TAB (MAG-OX) PO SCH ×2 (08:56→21:37)
[2018-03-27] MEDS: LACTOBACILLUS ACIDOPHILUS CAP (BACID) PO SCH ×3 (08:56→21:37)
[2018-03-27] MEDS: PANTOPRAZOLE 40MG TAB (PROTONIX) PO SCH ×2 (08:57→21:37)
[2018-03-27] MEDS: LACTULOSE 20 GM/30 ML SYRUP UD PO SCH ×2 (08:57→21:36)
[2018-03-27] MEDS: FOLIC ACID 1 MG TAB PO SCH (08:57)
[2018-03-27] MEDS: MIDODRINE 2.5 MG TAB PO SCH ×3 (08:57→16:49)
[2018-03-27] MEDS: PHYTONADIONE 5 MG TAB PO SCH (08:57)
[2018-03-27 09:10] LABS: BASO % 0.4 % (0.0-1.0); EOS # 0.1 10^3/uL (0.0-0.50); EOS % 5.5 % (0.0-3.0); HEMATOCRIT 29.4 % (42.0-52.0); HEMOGLOBIN 9.8 g/dl (13.5-17.5); LYMPH # 0.7 10^3/uL (1.5-4.5); LYMPH % 28.1 % (24.0-44.0); MEAN CORPUSCULAR HEMOGLOBIN 31.3 pg (27.0-33.0); MEAN CORPUSCULAR HGB CONC 33.3 g/dl (32.0-36.5); MEAN CORPUSCULAR VOLUME 93.9 fl (80.0-96.0); MONO # 0.3 10^3/uL (0.0-0.8); MONO % 11.9 % (0.0-5.0); NEUTROPHILS # 1.4 10^3/uL (1.8-7.7); NEUTROPHILS % 54.1 % (36.0-66.0); RED BLOOD COUNT 3.13 10^6/uL (4.30-6.10); WHITE BLOOD COUNT 2.5 10^3/uL (4.0-10.0)
[2018-03-27 09:12] LABS: PLATELET COUNT, AUTOMATED 36 10^3/uL (150-450)
[2018-03-27 09:28] LABS: ALBUMIN 2.3 GM/DL (3.2-5.2); ALT/SGPT 34 U/L (12-78); BILIRUBIN,DIRECT 0.5 MG/DL (0.0-0.2); BILIRUBIN,TOTAL 1.3 MG/DL (0.2-1.0); BLOOD UREA NITROGEN 15 MG/DL (7-18); CALCIUM LEVEL 8.8 MG/DL (8.8-10.2); CARBON DIOXIDE LEVEL 26 MEQ/L (21-32); CHLORIDE LEVEL 108 MEQ/L (98-107); GLOMERULAR FILTRATION RATE > 60.0 (>42); GLUCOSE, FASTING 79 MG/DL (70-100); POTASSIUM SERUM 3.7 MEQ/L (3.5-5.1); SODIUM LEVEL 140 MEQ/L (136-145); TOTAL PROTEIN 5.6 GM/DL (6.4-8.2)
--- NOTE | 2018-03-27 10:03 | IPNPDOC ---
Date Seen The patient was seen on 03/27/18. Progress Note SUBJECTIVE: Per RN, pt had loose bm, but denies any today. one IV site fell off yesterday. Despite midodrine, pt continues to be slightly hypotensive and c/o some dizziness when he gets up. He denies any sob, nausea, vomiting, abdominal pain, despite increasing abdominal distention, no increased LE edema is noted. Pt remains very weak but encouraged to try to get up tid and sit on the chair at the bedside for meals. He is a high risk for fall, and is on fall precautions with assistance with all ambulation. PHYSICAL EXAMINATION: GENERAL: The patient is alert, comfortable, in no acute distress. lying in bed HEENT: Moist mucous membranes. NECK: Supple. CARDIAC: Regular S1, S2. PULMONARY: Bilateral clear to auscultation. ABDOMEN: Caput medusae, spider angioma. No rebound. No guarding. Positive bowel sounds. increasing abdominal distension. EXTREMITIES: No edema in bilateral lower extremities. ASSESSMENT AND PLAN: This is a 77-year-old male patient with underlying medical history of hypertension, recurrent gastrointestinal (GI) bleed, abdominal aortic aneurysm, acute hepatitis secondary to alcohol abuse causing cirrhosis and ascites, history of chronic obstructive pulmonary disease (COPD) on home oxygen 2 liters, depression, gastroesophageal reflux disease (GERD), chronic pancreatitis, gout, also with hepatocellular carcinoma that is treated presented with s hortness of breath, found to be having worsening cirrhosis, hypotension, anemia, thrombocytopenia, pleural effusion and also found to have Clostridium difficile infection. PROBLEMS: 1. Status post septic shock secondary to Clostridium difficile infection, as well as urinary tract infection (UTI) improved off of Levophed. Completed Rocephin and vanco PO. No further leukocytosis. Triple lumen central line has been discontinued. 2. Decompensated cirrhosis improved. Status post paracentesis. Received albumin, midodrine for hypotension. Culture appreciated. Lactulose. 3. Clostridium difficile colitis. completed vancomycin. ID rec appreciated 4. Pancytopenia secondary to cirrhosis, status post packed red blood cells and platelet transfusion. The patient was also bright red blood per rectum, but refused endoscopy and would like to pursue conservative management. Risk and benefits have been explained to the patient. Gastroenterology has also been consulted. bleeding resolved, hh stable 5. Remote history of alcohol abuse, complicated with cirrhosis. Management as per above. 6. Coagulopathy secondary to cirrhosis and liver failure. vitamin K INR has been improved. Will monitor closely. 7. Chronic pancreatitis. Denies any significant pain. 8. History of chronic obstructive pulmonary disease (COPD), currently does not have any wheeze. Continue nebulizers. 9. History of hepatocellular carcinoma, consulted gastroenterology. Questionable recurrence. Followup with oncology as an outpatient. 10. Urinary retention. Unable to tolerate Flomax,failed voiding trial, mann 11. Deep vein thrombosis (DVT) prophylaxis. TEDs and sequential. Avoid pharmacological agent given cirrhosis with multiple episodes of gastrointestinal (GI) bleed. 12. Depression. Continue current medication. disposition: reluctant to work with physical therapy. tid oob to chair during meals. change to alc status. VS, I&O, [facility]I&O Vital Signs Date Time Temp Pulse Resp B/P (MAP) Pulse Ox O2 Delivery O2 Flow Rate FiO2 03/27/18 06:00 97.4 70 18 106/58 (74) 96 Room Air I&O- Last 24 Hours up to 6 AM 03/27/18 06:00 Intake Total 650 ml Output Total 350 ml Balance 300 ml Laboratory Data 24H LABS Laboratory Tests 2 03/27/18 08:35: Immature Granulocyte % (Auto) 0.0, White Blood Count 2.5L, Red Blood Count 3.13L, Hemoglobin 9.8L, Hematocrit 29.4L, Mean Corpuscular Volume 93.9, Mean Corpuscular Hemoglobin 31.3, Mean Corpuscular Hemoglobin Concent 33.3, Red Cell Distribution Width 18.6H, Platelet Count 36L, Neutrophils (%) (Auto) 54.1, Lymphocytes (%) (Auto) 28.1, Monocytes (%) (Auto) 11.9H, Eosinophils (%) (Auto) 5.5H, Basophils (%) (Auto) 0.4, Neutrophils # (Auto) 1.4L, Lymphocytes # (Auto) 0.7L, Monocytes # (Auto) 0.3, Eosinophils # (Auto) 0.1, Basophils # (Auto) 0.0, Nucleated Red Blood Cells % (auto) 0.0, Immature Platelet Fraction 2.6, Anion Gap 6L, Glomerular Filtration Rate > 60.0, Calcium Level 8.8, Aspartate Amino Transf (AST/SGOT) 44H, Alanine Aminotransferase (ALT/SGPT) 34, Alkaline Phosphatase 38L, Total Bilirubin 1.3H, Direct Bilirubin 0.5H, Total Protein 5.6L, Albumin 2.3L, Albumin/Globulin Ratio 0.70L CBC/BMP Laboratory Tests 03/27/18 08:35 Red Blood Count 3.13 L, Mean Corpuscular Volume 93.9, Mean Corpuscular Hemoglobin 31.3, Mean Corpuscular Hemoglobin Concent 33.3, Red Cell Distribution Width 18.6 H, Neutrophils (%) (Auto) 54.1, Lymphocytes (%) (Auto) 28.1, Monocytes (%) (Auto) 11.9 H, Eosinophils (%) (Auto) 5.5 H, Basophils (%) (Auto) 0.4, Neutrophils # (Auto) 1.4 L, Lymphocytes # (Auto) 0.7 L, Monocytes # (Auto) 0.3, Eosinophils # (Auto) 0.1, Basophils # (Auto) 0.0 SARA CLANCY MD Mar 27, 2018 10:03
[2018-03-28] MEDS: SUCRALFATE 1 GM TAB PO SCH ×4 (00:16→17:24)
[2018-03-28] MEDS: IPRATROPIUM 0.5MG/ALBUTEROL 2.5MG INH SOL UD 3ML (DUONEB)(J7620) NEB SCH ×4 (02:00→20:00)
[2018-03-28 06:00] VITALS: BP 106/59
[2018-03-28] MEDS: MULTIVITAMINS/MINERALS THERAP 1 TAB PO SCH (08:16)
[2018-03-28] MEDS: PANTOPRAZOLE 40MG TAB (PROTONIX) PO SCH ×2 (08:16→21:20)
[2018-03-28] MEDS: VITAMIN B COMPLEX/VIT C CAP PO SCH (08:16)
[2018-03-28] MEDS: LACTULOSE 20 GM/30 ML SYRUP UD PO SCH ×2 (08:16→21:20)
[2018-03-28] MEDS: LACTOBACILLUS ACIDOPHILUS CAP (BACID) PO SCH ×3 (08:16→21:20)
[2018-03-28] MEDS: MAGNESIUM OXIDE 400 MG TAB (MAG-OX) PO SCH ×2 (08:16→21:20)
[2018-03-28] MEDS: FOLIC ACID 1 MG TAB PO SCH (08:16)
[2018-03-28] MEDS: SERTRALINE HCL 50 MG TAB PO SCH (08:17)
[2018-03-28] MEDS: PHYTONADIONE 5 MG TAB PO SCH (08:17)
[2018-03-28] MEDS: MIDODRINE 2.5 MG TAB PO SCH ×3 (08:17→17:24)
[2018-03-29] MEDS: SUCRALFATE 1 GM TAB PO SCH ×4 (00:41→18:29)
[2018-03-29] MEDS: IPRATROPIUM 0.5MG/ALBUTEROL 2.5MG INH SOL UD 3ML (DUONEB)(J7620) NEB SCH ×4 (02:00→20:00)
[2018-03-29 06:00] VITALS: BP 100/55
[2018-03-29 06:18] LABS: HEMATOCRIT 29.5 % (42.0-52.0); HEMOGLOBIN 9.8 g/dl (13.5-17.5); MEAN CORPUSCULAR HEMOGLOBIN 30.5 pg (27.0-33.0); MEAN CORPUSCULAR HGB CONC 33.2 g/dl (32.0-36.5); MEAN CORPUSCULAR VOLUME 91.9 fl (80.0-96.0); RED BLOOD COUNT 3.21 10^6/uL (4.30-6.10); WHITE BLOOD COUNT 2.8 10^3/uL (4.0-10.0)
[2018-03-29 06:20] LABS: PLATELET COUNT, AUTOMATED 39 10^3/uL (150-450)
[2018-03-29 06:44] LABS: ALBUMIN 2.2 GM/DL (3.2-5.2); ALT/SGPT 29 U/L (12-78); BILIRUBIN,TOTAL 1.3 MG/DL (0.2-1.0); BLOOD UREA NITROGEN 15 MG/DL (7-18); CALCIUM LEVEL 8.7 MG/DL (8.8-10.2); CARBON DIOXIDE LEVEL 26 MEQ/L (21-32); CHLORIDE LEVEL 110 MEQ/L (98-107); CREATININE FOR GFR 0.65 MG/DL (0.70-1.30); GLOMERULAR FILTRATION RATE > 60.0 (>42); GLUCOSE, FASTING 75 MG/DL (70-100); POTASSIUM SERUM 3.4 MEQ/L (3.5-5.1); SODIUM LEVEL 142 MEQ/L (136-145); TOTAL PROTEIN 5.7 GM/DL (6.4-8.2)
[2018-03-29] MEDS: PHYTONADIONE 5 MG TAB PO SCH (09:00)
[2018-03-29] MEDS ORDERED: POTASSIUM CHLORIDE 10 MEQ SR TABLET PO ONE (09:15)
[2018-03-29] MEDS: SERTRALINE HCL 50 MG TAB PO SCH (09:43)
[2018-03-29] MEDS: LACTULOSE 20 GM/30 ML SYRUP UD PO SCH ×2 (09:43→20:16)
[2018-03-29] MEDS: MAGNESIUM OXIDE 400 MG TAB (MAG-OX) PO SCH ×2 (09:44→20:16)
[2018-03-29] MEDS: MIDODRINE 2.5 MG TAB PO SCH ×3 (09:44→16:26)
[2018-03-29] MEDS: PANTOPRAZOLE 40MG TAB (PROTONIX) PO SCH ×2 (09:44→20:16)
[2018-03-29] MEDS: FOLIC ACID 1 MG TAB PO SCH (09:44)
[2018-03-29] MEDS: MULTIVITAMINS/MINERALS THERAP 1 TAB PO SCH (09:44)
[2018-03-29] MEDS: LACTOBACILLUS ACIDOPHILUS CAP (BACID) PO SCH ×3 (09:44→20:16)
[2018-03-29] MEDS: VITAMIN B COMPLEX/VIT C CAP PO SCH (13:06)
[2018-03-29 22:00] VITALS: BP 103/55
[2018-03-30] MEDS: IPRATROPIUM 0.5MG/ALBUTEROL 2.5MG INH SOL UD 3ML (DUONEB)(J7620) NEB SCH ×4 (01:43→20:00)
[2018-03-30] MEDS: SUCRALFATE 1 GM TAB PO SCH ×5 (05:56→23:20)
[2018-03-30 06:00] VITALS: BP 97/53
[2018-03-30] MEDS: SERTRALINE HCL 50 MG TAB PO SCH (09:22)
[2018-03-30] MEDS: LACTULOSE 20 GM/30 ML SYRUP UD PO SCH ×2 (09:22→21:13)
[2018-03-30] MEDS: MAGNESIUM OXIDE 400 MG TAB (MAG-OX) PO SCH ×2 (09:23→21:12)
[2018-03-30] MEDS: FOLIC ACID 1 MG TAB PO SCH (09:23)
[2018-03-30] MEDS: MULTIVITAMINS/MINERALS THERAP 1 TAB PO SCH (09:23)
[2018-03-30] MEDS: VITAMIN B COMPLEX/VIT C CAP PO SCH (09:23)
[2018-03-30] MEDS: PHYTONADIONE 5 MG TAB PO SCH (09:23)
[2018-03-30] MEDS: MIDODRINE 2.5 MG TAB PO SCH ×3 (09:23→16:18)
[2018-03-30] MEDS: LACTOBACILLUS ACIDOPHILUS CAP (BACID) PO SCH ×3 (09:23→21:12)
[2018-03-30] MEDS: PANTOPRAZOLE 40MG TAB (PROTONIX) PO SCH ×2 (09:23→21:12)
[2018-03-31] MEDS: IPRATROPIUM 0.5MG/ALBUTEROL 2.5MG INH SOL UD 3ML (DUONEB)(J7620) NEB SCH ×4 (01:42→20:00)
[2018-03-31] MEDS: SUCRALFATE 1 GM TAB PO SCH ×4 (05:53→23:46)
[2018-03-31 06:00] VITALS: BP_SYST 116; BP_SYST 97; BP_DIAS 53; BP_DIAS 56
[2018-03-31 06:39] LABS: ALBUMIN 2.2 GM/DL (3.2-5.2); ALT/SGPT 31 U/L (12-78); BILIRUBIN,TOTAL 1.1 MG/DL (0.2-1.0); BLOOD UREA NITROGEN 14 MG/DL (7-18); CALCIUM LEVEL 8.8 MG/DL (8.8-10.2); CARBON DIOXIDE LEVEL 25 MEQ/L (21-32); CHLORIDE LEVEL 110 MEQ/L (98-107); CREATININE FOR GFR 0.66 MG/DL (0.70-1.30); GLOMERULAR FILTRATION RATE > 60.0 (>42); GLUCOSE, FASTING 74 MG/DL (70-100); POTASSIUM SERUM 3.4 MEQ/L (3.5-5.1); SODIUM LEVEL 141 MEQ/L (136-145); TOTAL PROTEIN 5.9 GM/DL (6.4-8.2)
[2018-03-31 07:41] VITALS: BP 99/57
[2018-03-31] MEDS: LACTULOSE 20 GM/30 ML SYRUP UD PO SCH ×2 (10:43→21:42)
[2018-03-31] MEDS: PHYTONADIONE 5 MG TAB PO SCH (10:44)
[2018-03-31] MEDS: MAGNESIUM OXIDE 400 MG TAB (MAG-OX) PO SCH ×2 (10:44→21:43)
[2018-03-31] MEDS: MIDODRINE 2.5 MG TAB PO SCH ×3 (10:44→16:41)
[2018-03-31] MEDS: LACTOBACILLUS ACIDOPHILUS CAP (BACID) PO SCH ×3 (10:44→21:43)
[2018-03-31] MEDS: VITAMIN B COMPLEX/VIT C CAP PO SCH (10:45)
[2018-03-31] MEDS: SERTRALINE HCL 50 MG TAB PO SCH (10:45)
[2018-03-31] MEDS: MULTIVITAMINS/MINERALS THERAP 1 TAB PO SCH (10:45)
[2018-03-31] MEDS: FOLIC ACID 1 MG TAB PO SCH (10:45)
[2018-03-31] MEDS: PANTOPRAZOLE 40MG TAB (PROTONIX) PO SCH ×2 (10:45→21:43)
--- NOTE | 2018-03-31 11:11 | IPN ---
DATE: 03/31/2018 I spoke to Rommel's , Marti, at length today, and I also saw Rommel. He has end stage cirrhosis with decompensation, ascites and probable hepatocellular carcinoma or at least two liver lesions consistent with that as well as end stage chronic obstructive pulmonary disease (COPD). His approached [facility] ([facility]) with consideration of end of life care. On exam, Rommel's blood pressure is 99/57, pulse 65, respiratory rate 16, and 94% oxygen saturation. He looks chronically ill, cachectic, lying in bed. Lungs have decreased breath sounds. Heart regular rhythm. Abdomen soft, nontender. There is no peripheral edema. He is mildly jaundiced. IMPRESSION: End stage cirrhosis. Probable hepatocellular carcinoma. End stage COPD. I do think the patient would be a good candidate for palliative care if life expectancy is less than 6 months. She is interested in talking with hospice about the patient coming home with hospice for end of life care. I have put in a consultation for hospice to become involved with the case.
[2018-04-01] MEDS: IPRATROPIUM 0.5MG/ALBUTEROL 2.5MG INH SOL UD 3ML (DUONEB)(J7620) NEB SCH ×4 (01:49→20:05)
[2018-04-01] MEDS: SUCRALFATE 1 GM TAB PO SCH ×3 (05:51→17:07)
[2018-04-01] MEDS: MIDODRINE 2.5 MG TAB PO SCH ×3 (08:14→17:06)
[2018-04-01] MEDS: LACTOBACILLUS ACIDOPHILUS CAP (BACID) PO SCH ×3 (08:15→20:08)
[2018-04-01] MEDS: FOLIC ACID 1 MG TAB PO SCH (08:15)
[2018-04-01] MEDS: LACTULOSE 20 GM/30 ML SYRUP UD PO SCH ×2 (08:15→20:08)
[2018-04-01] MEDS: VITAMIN B COMPLEX/VIT C CAP PO SCH (08:16)
[2018-04-01] MEDS: MAGNESIUM OXIDE 400 MG TAB (MAG-OX) PO SCH ×2 (08:16→20:09)
[2018-04-01] MEDS: PANTOPRAZOLE 40MG TAB (PROTONIX) PO SCH ×2 (08:16→20:09)
[2018-04-01] MEDS: MULTIVITAMINS/MINERALS THERAP 1 TAB PO SCH (08:16)
[2018-04-01] MEDS: PHYTONADIONE 5 MG TAB PO SCH (08:17)
[2018-04-01] MEDS: SERTRALINE HCL 50 MG TAB PO SCH (08:18)
[2018-04-01 09:09] LABS: HEMATOCRIT 31.4 % (42.0-52.0); HEMOGLOBIN 10.3 g/dl (13.5-17.5); MEAN CORPUSCULAR HEMOGLOBIN 31.2 pg (27.0-33.0); MEAN CORPUSCULAR HGB CONC 32.8 g/dl (32.0-36.5); MEAN CORPUSCULAR VOLUME 95.2 fl (80.0-96.0); PLATELET COUNT, AUTOMATED 42 10^3/uL (150-450); WHITE BLOOD COUNT 3.5 10^3/uL (4.0-10.0)
[2018-04-01 14:00] VITALS: BP 114/59
[2018-04-02] MEDS: SUCRALFATE 1 GM TAB PO SCH ×4 (00:04→17:18)
[2018-04-02] MEDS: IPRATROPIUM 0.5MG/ALBUTEROL 2.5MG INH SOL UD 3ML (DUONEB)(J7620) NEB SCH ×4 (02:00→20:41)
[2018-04-02 06:00] VITALS: BP 107/57
[2018-04-02] MEDS: MAGNESIUM OXIDE 400 MG TAB (MAG-OX) PO SCH ×2 (09:53→20:30)
[2018-04-02] MEDS: SERTRALINE HCL 50 MG TAB PO SCH (09:53)
[2018-04-02] MEDS: MULTIVITAMINS/MINERALS THERAP 1 TAB PO SCH (09:53)
[2018-04-02] MEDS: PANTOPRAZOLE 40MG TAB (PROTONIX) PO SCH ×2 (09:53→20:30)
[2018-04-02] MEDS: LACTULOSE 20 GM/30 ML SYRUP UD PO SCH ×2 (09:53→20:30)
[2018-04-02] MEDS: FOLIC ACID 1 MG TAB PO SCH (09:54)
[2018-04-02] MEDS: LACTOBACILLUS ACIDOPHILUS CAP (BACID) PO SCH ×3 (09:54→20:30)
[2018-04-02] MEDS: MIDODRINE 2.5 MG TAB PO SCH ×3 (09:54→16:17)
[2018-04-02] MEDS: VITAMIN B COMPLEX/VIT C CAP PO SCH (09:54)
[2018-04-02] MEDS: PHYTONADIONE 5 MG TAB PO SCH (10:02)
[2018-04-03] MEDS: IPRATROPIUM 0.5MG/ALBUTEROL 2.5MG INH SOL UD 3ML (DUONEB)(J7620) NEB SCH ×4 (02:00→20:00)
[2018-04-03] MEDS: SUCRALFATE 1 GM TAB PO SCH ×5 (05:42→23:20)
[2018-04-03 06:00] VITALS: BP 128/67
[2018-04-03] MEDS: MAGNESIUM OXIDE 400 MG TAB (MAG-OX) PO SCH ×2 (08:56→22:23)
[2018-04-03] MEDS: VITAMIN B COMPLEX/VIT C CAP PO SCH (08:56)
[2018-04-03] MEDS: PHYTONADIONE 5 MG TAB PO SCH (08:56)
[2018-04-03] MEDS: MULTIVITAMINS/MINERALS THERAP 1 TAB PO SCH (08:56)
[2018-04-03] MEDS: SERTRALINE HCL 50 MG TAB PO SCH (08:56)
[2018-04-03] MEDS: MIDODRINE 2.5 MG TAB PO SCH ×3 (08:56→16:17)
[2018-04-03] MEDS: LACTOBACILLUS ACIDOPHILUS CAP (BACID) PO SCH ×3 (08:56→22:23)
[2018-04-03] MEDS: PANTOPRAZOLE 40MG TAB (PROTONIX) PO SCH ×2 (08:56→22:23)
[2018-04-03] MEDS: FOLIC ACID 1 MG TAB PO SCH (08:57)
[2018-04-03] MEDS: LACTULOSE 20 GM/30 ML SYRUP UD PO SCH ×2 (08:57→22:22)
[2018-04-03 22:00] VITALS: BP 139/84
[2018-04-04] MEDS: IPRATROPIUM 0.5MG/ALBUTEROL 2.5MG INH SOL UD 3ML (DUONEB)(J7620) NEB SCH ×4 (02:00→20:00)
[2018-04-04 06:00] VITALS: BP 102/56
[2018-04-04] MEDS: SUCRALFATE 1 GM TAB PO SCH ×3 (07:00→17:33)
[2018-04-04] MEDS: MIDODRINE 2.5 MG TAB PO SCH ×3 (08:00→15:18)
[2018-04-04] MEDS: PHYTONADIONE 5 MG TAB PO SCH (11:13)
[2018-04-04] MEDS: VITAMIN B COMPLEX/VIT C CAP PO SCH (11:13)
[2018-04-04] MEDS: LACTOBACILLUS ACIDOPHILUS CAP (BACID) PO SCH ×3 (11:13→21:53)
[2018-04-04] MEDS: PANTOPRAZOLE 40MG TAB (PROTONIX) PO SCH ×2 (11:13→21:53)
[2018-04-04] MEDS: MAGNESIUM OXIDE 400 MG TAB (MAG-OX) PO SCH ×2 (11:14→21:53)
[2018-04-04] MEDS: FOLIC ACID 1 MG TAB PO SCH (11:14)
[2018-04-04] MEDS: SERTRALINE HCL 50 MG TAB PO SCH (11:14)
[2018-04-04] MEDS: MULTIVITAMINS/MINERALS THERAP 1 TAB PO SCH (11:14)
[2018-04-04] MEDS: LACTULOSE 20 GM/30 ML SYRUP UD PO SCH ×2 (11:14→21:53)
--- NOTE | 2018-04-04 13:31 | IPN ---
DATE OF SERVICE: 04/04/2018 Rommel was seen in [address] [place] [id number]. I have not heard from his recently. She was talking about him going on hospice, which I think is appropriate. PHYSICAL EXAMINATION: He is quite lethargic today and not very responsive. 102/56, pulse 76, respiratory rate 17, 95% oxygen (O2) saturation. Lungs clear. Heart: Regular rate and rhythm. Abdomen: Soft, nontender. He can move his arms and legs with equal strength. IMPRESSION: This patient would be appropriate for hospice care. I will ask the staff to call me when the family comes in, so we can discuss this further.
[2018-04-05] MEDS: SUCRALFATE 1 GM TAB PO SCH ×4 (00:21→17:33)
[2018-04-05] MEDS: IPRATROPIUM 0.5MG/ALBUTEROL 2.5MG INH SOL UD 3ML (DUONEB)(J7620) NEB SCH ×4 (01:18→20:00)
[2018-04-05 06:00] VITALS: BP 110/70
[2018-04-05 08:21] LABS: HEMATOCRIT 30.8 % (42.0-52.0); HEMOGLOBIN 10.3 g/dl (13.5-17.5); MEAN CORPUSCULAR HEMOGLOBIN 31.4 pg (27.0-33.0); MEAN CORPUSCULAR HGB CONC 33.4 g/dl (32.0-36.5); MEAN CORPUSCULAR VOLUME 93.9 fl (80.0-96.0); RED BLOOD COUNT 3.28 10^6/uL (4.30-6.10); WHITE BLOOD COUNT 4.7 10^3/uL (4.0-10.0)
[2018-04-05 08:26] LABS: PLATELET COUNT, AUTOMATED 45 10^3/uL (150-450)
[2018-04-05] MEDS: PHYTONADIONE 5 MG TAB PO SCH (08:33)
[2018-04-05] MEDS: PANTOPRAZOLE 40MG TAB (PROTONIX) PO SCH ×2 (08:34→20:21)
[2018-04-05] MEDS: MIDODRINE 2.5 MG TAB PO SCH ×3 (08:34→17:32)
[2018-04-05] MEDS: MAGNESIUM OXIDE 400 MG TAB (MAG-OX) PO SCH ×2 (08:34→20:21)
[2018-04-05] MEDS: SERTRALINE HCL 50 MG TAB PO SCH (08:34)
[2018-04-05] MEDS: MULTIVITAMINS/MINERALS THERAP 1 TAB PO SCH (08:34)
[2018-04-05] MEDS: LACTOBACILLUS ACIDOPHILUS CAP (BACID) PO SCH ×3 (08:34→20:21)
[2018-04-05] MEDS: FOLIC ACID 1 MG TAB PO SCH (08:34)
[2018-04-05] MEDS: VITAMIN B COMPLEX/VIT C CAP PO SCH (08:34)
[2018-04-05] MEDS: LACTULOSE 20 GM/30 ML SYRUP UD PO SCH ×2 (08:35→20:22)
[2018-04-06] MEDS: SUCRALFATE 1 GM TAB PO SCH ×5 (00:20→23:19)
[2018-04-06] MEDS: IPRATROPIUM 0.5MG/ALBUTEROL 2.5MG INH SOL UD 3ML (DUONEB)(J7620) NEB SCH ×4 (01:52→20:00)
[2018-04-06 06:00] VITALS: BP 109/51
[2018-04-06] MEDS: LACTOBACILLUS ACIDOPHILUS CAP (BACID) PO SCH ×3 (08:29→21:33)
[2018-04-06] MEDS: MULTIVITAMINS/MINERALS THERAP 1 TAB PO SCH (08:30)
[2018-04-06] MEDS: PHYTONADIONE 5 MG TAB PO SCH (08:30)
[2018-04-06] MEDS: SERTRALINE HCL 50 MG TAB PO SCH (08:30)
[2018-04-06] MEDS: MAGNESIUM OXIDE 400 MG TAB (MAG-OX) PO SCH ×2 (08:30→21:33)
[2018-04-06] MEDS: PANTOPRAZOLE 40MG TAB (PROTONIX) PO SCH ×2 (08:30→21:33)
[2018-04-06] MEDS: FOLIC ACID 1 MG TAB PO SCH (08:30)
[2018-04-06] MEDS: MIDODRINE 2.5 MG TAB PO SCH ×3 (08:31→17:38)
[2018-04-06] MEDS: LACTULOSE 20 GM/30 ML SYRUP UD PO SCH ×2 (08:31→21:33)
[2018-04-06] MEDS: VITAMIN B COMPLEX/VIT C CAP PO SCH (09:00)
[2018-04-07] MEDS: IPRATROPIUM 0.5MG/ALBUTEROL 2.5MG INH SOL UD 3ML (DUONEB)(J7620) NEB SCH ×4 (02:00→20:22)
[2018-04-07] MEDS: SUCRALFATE 1 GM TAB PO SCH ×4 (05:16→23:32)
[2018-04-07 06:00] VITALS: BP 119/61
[2018-04-07] MEDS: MULTIVITAMINS/MINERALS THERAP 1 TAB PO SCH (08:44)
[2018-04-07] MEDS: LACTULOSE 20 GM/30 ML SYRUP UD PO SCH ×2 (08:44→21:30)
[2018-04-07] MEDS: MIDODRINE 2.5 MG TAB PO SCH ×3 (08:46→17:43)
[2018-04-07] MEDS: SERTRALINE HCL 50 MG TAB PO SCH (08:46)
[2018-04-07] MEDS: VITAMIN B COMPLEX/VIT C CAP PO SCH (08:46)
[2018-04-07] MEDS: LACTOBACILLUS ACIDOPHILUS CAP (BACID) PO SCH ×3 (08:46→21:30)
[2018-04-07] MEDS: MAGNESIUM OXIDE 400 MG TAB (MAG-OX) PO SCH ×2 (08:46→21:30)
[2018-04-07] MEDS: PANTOPRAZOLE 40MG TAB (PROTONIX) PO SCH ×2 (08:46→21:30)
[2018-04-07] MEDS: FOLIC ACID 1 MG TAB PO SCH (08:46)
[2018-04-07] MEDS: PHYTONADIONE 5 MG TAB PO SCH (09:38)
[2018-04-07] MEDS ORDERED: HYOS125TA PO (18:19)
[2018-04-07] MEDS ORDERED: LORA0.5T11 PO (18:19)
[2018-04-07] MEDS ORDERED: MORP20SO3 PO (18:19)
[2018-04-08] MEDS: IPRATROPIUM 0.5MG/ALBUTEROL 2.5MG INH SOL UD 3ML (DUONEB)(J7620) NEB SCH ×2 (01:57→07:31)
[2018-04-08] MEDS: SUCRALFATE 1 GM TAB PO SCH (05:11)
[2018-04-08 06:00] VITALS: BP 115/68
[2018-04-08] MEDS: SERTRALINE HCL 50 MG TAB PO SCH (08:15)
[2018-04-08] MEDS: LACTULOSE 20 GM/30 ML SYRUP UD PO SCH (08:15)
[2018-04-08] MEDS: PHYTONADIONE 5 MG TAB PO SCH (08:15)
[2018-04-08] MEDS: MAGNESIUM OXIDE 400 MG TAB (MAG-OX) PO SCH (08:16)
[2018-04-08] MEDS: PANTOPRAZOLE 40MG TAB (PROTONIX) PO SCH (08:16)
[2018-04-08] MEDS: MIDODRINE 2.5 MG TAB PO SCH (08:16)
[2018-04-08] MEDS: LACTOBACILLUS ACIDOPHILUS CAP (BACID) PO SCH (08:16)
[2018-04-08] MEDS: VITAMIN B COMPLEX/VIT C CAP PO SCH (08:16)
[2018-04-08] MEDS: FOLIC ACID 1 MG TAB PO SCH (08:16)
[2018-04-08] MEDS: MULTIVITAMINS/MINERALS THERAP 1 TAB PO SCH (08:17)
--- NOTE | 2018-04-08 18:45 | DS.PDOC ---
Discharge Summary General Date of Admission Mar 07, 2018 at 06:39 Date of Discharge 04/08/18 Primary Care Physician: A Attending Physician: TIMMY BOURGEOIS MD Specialist/Consultants Involve: Kaylan Alvarez MD Specialist/Consultants Involve Mahesh Ortiz Discharge Summary PCP [facility] PROCEDURES PERFORMED DURING STAY: Echocardiogram, Right internal jugular (IJ) triple lumen central line, Paracentesis ADMITTING DIAGNOSES: Shortness of breath, sputum production Liver cirrhosis Lactic acidosis COPD, oxygen dependent DISCHARGE DIAGNOSES: Liver cirrhosis Hepatocellular carcinoma. Depression. Hypertension. COPD oxygen dependent COMPLICATIONS/CHIEF COMPLAINT: Chronic Liver Disease And Cirrhosis. HISTORY OF PRESENT ILLNESS/HOSPITAL COURSE:Patient presented with a chief complaint of 4 days worth of progressively worsening shortness of breath with associated yellow-green sputum production. At baseline patient uses oxygen and home. He was admitted for possible pneumonia versus fluid overload from liver cirrhosis. He also tested positive for C. difficile. Infectious diseases was consulted consulted. Patient was started on appropriate antibiotics. He was able to complete his antibiotic course without any adverse effects. Gastroenterology was also consulted due to patient's history of hepatocellular carcinoma. He was managed appropriately per the recommendations of principal statistical scientist. During his stay. Patient also became hypotensive and a central line had replaced for management of his blood pressure. Due to patient's past medical history of anemia, thrombocytopenia, liver cirrhosis. Patient required multiple transfusions of albumin, red blood cells, fresh frozen plasma, and platelets. He was closely monitored, and treated appropriately. However due to patient's end-stage cirrhosis with decompensation, ascites and hepatocellular carcinoma, with liver lesion, plus end stage chronic obstructive pulmonary disease. A lengthy discussion was had with the patient's about the consideration of end-of-life care. With the aid of patient and family services (PFS), patient's decided to proceed with palliative care as patient's life expectancy was less than 6 months. Patient was discharged to hospice on 04/08/2018. DISCHARGE MEDICATIONS: Please see below. ALLERGIES: Please see below. PHYSICAL EXAMINATION ON DISCHARGE: VITAL SIGNS: Please see below. Physical exam was not performed on date of discharge LABORATORY DATA: Please see below. IMAGING: Chest X-Ray 03/12/18: A right internal jugular central venous line remains in place in the expected location of the superior vena cava. There are is evidence of bilateral pleural effusion, right greater than left. Heart is not enlarged. The aorta is calcific and tortuous. No definite infiltrate Chest x-ray, 03/08/2018. 1. Right lower lobe atelectasis or infiltrate unchanged compared to the previous study. 2. Small right pleural effusion unchanged compared to the previous study Chest x-ray 03/07/2018. 1. Right lower lobe atelectasis or infiltrate unchanged compared to the previous study. 2. Small right pleural effusion unchanged compared to the previous study. 3. The patient is status post central line placement in the superior vena cava CT abdomen and pelvis 03/07/2018. 1. The liver is irregular in contour, consistent with cirrhosis. 2. There are two ill-defined hypodensities in the liver suspicious for metastases. 3. Cholelithiasis. 4. Left nephrolithiasis. 5. There is a large amount of ascites in the abdomen and pelvis. 6. Right lower lobe atelectasis or infiltrate and right pleural effusion. 7. There is thickening of the urinary bladder wall which contains calcifications. This may be secondary to inflammation or possibly neoplasm. 8. Diverticulosis. Chest CT, 03/07/2018. 1. Large right-sided pleural effusion with overlying total atelectasis of the lower lobe. Underlying infectious etiology cannot be excluded. 2. Nonspecific few scattered areas of faint ground glass haziness could be secondary to subsegmental atelectasis, or alveolar inflammatory material versus fluid/alveolitis. 3. Severe aortic and coronary vascular calcifications. 4. Cirrhotic liver with large abdominal ascites, likely splenomegaly and recanalized umbilical vein. 5. 4.6 x 3.1 cm right hepatic lobe mass suspicious for HCC in a patient with cirrhosis. 6. Gallstone in the partially imaged gallbladder neck. Chest x-ray 03/07/2018: 1. Small right pleural effusion increased compared to the previous study. 2. Right lower lobe atelectasis or infiltrate. PROGNOSIS: Guarded ACTIVITY: As tolerated DIET: As tolerated DISCHARGE PLAN: To hospice DISPOSITION: [address] [facility]. DISCHARGE INSTRUCTIONS: End-of-life care management ITEMS TO FOLLOWUP ON ON OUTPATIENT: End-of-life care management, pain control, for comfort care DISCHARGE CONDITION: Stable TIME SPENT ON DISCHARGE: Greater than 35 minutes. Vital Signs/I&Os Vital Signs Date Time Temp Pulse Resp B/P (MAP) Pulse Ox O2 Delivery O2 Flow Rate FiO2 04/08/18 06:00 97.2 77 18 115/68 (84) 95 I&O- Last 24 Hours up to 6 AM 04/08/18 06:00 Intake Total 950 ml Output Total 250 ml Balance 700 ml Discharge Medications Scheduled (Sertraline HCl) 50 Mg Tab, 150 MG PO DAILY, (Reported) Spironolactone (Spironolactone) 25 Mg Tab, 12.5 MG PO DAILY, (Reported) Scheduled PRN Hyoscyamine Sulfate (Hyoscyamine Sulfate) 0.125 Mg Sub, 0.125 MG PO Q4HP PRN for TERMINAL SECRETIONS Use sublingually if unable to swallow Lorazepam (Lorazepam) 0.5 Mg Tab, 0.5 MG PO Q4HP PRN for ANXIETY/AGITATION Use sublingually if unable to swallow Morphine Sulfate (Morphine Sulfate) 100 Mg/5 Ml Tyra, 0.25-1 ML PO Q2H PRN for PAIN OR DYSPNEA Use sublingually if unable to swallow Allergies Coded Allergies: Bee Venom (Verified Allergy, Unknown, SWELLING AND DIFFICULTY BREATHING, 05/13/17) Contrast Media (Verified Allergy, Unknown, 05/13/17) GME ATTESTATION GME ATTESTATION My faculty preceptor for this patient encounter was physically present during the encounter and was fully available. All aspects of the patient interview, exa mination, medical decision making process, and medical care plan development were reviewed and approved by the faculty preceptor. The faculty preceptor is aware and concurs with the plan as stated in the body of this note and will attest to such by his/her cosignature. HOLDEN ANTHONY DO Apr 08, 2018 18:45
== END 2018-04-08 09:20 | disposition hospice, home (50) | DRG 871 ==
LOC: M ED 01:51 → M ED INP 06:39 → M ICU 10:02 → M PCU 03-15 03:17 → M MSPAV 03-18 13:16
PROVIDERS: ADMIT Internal Medicine; ATTEND Internal Medicine
PROC: 02HV33Z Insertion of Infusion Device into Superior Vena Cava, Percutaneous Approach (ICD-10-PCS; principal; 2018-03-07)
PROC: 30233J1 Transfusion of Nonautologous Serum Albumin into Peripheral Vein, Percutaneous Approach (ICD-10-PCS; 2018-03-07)
PROC: 30233K1 Transfusion of Nonautologous Frozen Plasma into Peripheral Vein, Percutaneous Approach (ICD-10-PCS; 2018-03-08)
PROC: 0W9G3ZZ Drainage of Peritoneal Cavity, Percutaneous Approach (ICD-10-PCS; 2018-03-09)
PROC: 30233N1 Transfusion of Nonautologous Red Blood Cells into Peripheral Vein, Percutaneous Approach (ICD-10-PCS; 2018-03-13)
PROC: 30233R1 Transfusion of Nonautologous Platelets into Peripheral Vein, Percutaneous Approach (ICD-10-PCS; 2018-03-13)
DX: A41.9 Sepsis, unspecified organism (principal); R65.21 Severe sepsis with septic shock; K52.1 Toxic gastroenteritis and colitis; E87.2 Acidosis; A04.72 Enterocolitis due to Clostridium difficile, not specified as recurrent; D68.4 Acquired coagulation factor deficiency; D61.818 Other pancytopenia; K86.1 Other chronic pancreatitis; N39.0 Urinary tract infection, site not specified; C22.0 Liver cell carcinoma; R64 Cachexia; I10 Essential (primary) hypertension; K70.31 Alcoholic cirrhosis of liver with ascites; J44.9 Chronic obstructive pulmonary disease, unspecified; D69.59 Other secondary thrombocytopenia; F32.9 Major depressive disorder, single episode, unspecified; E78.00 Pure hypercholesterolemia, unspecified; R33.9 Retention of urine, unspecified; M10.9 Gout, unspecified; Z87.891 Personal history of nicotine dependence; Z79.899 Other long term (current) drug therapy; Z91.030 Bee allergy status; Z91.041 Radiographic dye allergy status; Z99.81 Dependence on supplemental oxygen

== ENCOUNTER → 2018-06-08 | Outpatient (CLI) | payer MEDICARE, OTHER ==
[~2018-06-08] MED LIST changes: -/AMLO25TA PO; -/ONDA4TA PO; -/PANT40TA PO; +ALBU83IN NEB; +BUPIVACAINE HCL 0.5% 10 ML VIAL As Ordered ONE; +FOLI1TAB11 PO; +HYOS125TA PO; +LACT10SO29 PO; +LACT10SO3 PO; +LIDOCAINE 2% MDV 20 ML VIAL As Ordered ONE; +LORA0.5T11 PO; +MAG400TA PO; +MIDO2.5T PO; +MORP20SO3 PO; +NORV2TAB PO; +ONDA-1 PO; +OXYC1TAB23 PO; -PERCOCET PO; +PHYT5TA PO; +PROT1TAB2 PO; +RISATAB3 PO; +SERT-155 PO; +VANC125C3 PO
--- NOTE | 2018-07-07 07:52 | REPIR ---
DATE OF PROCEDURE: 06/08/2018 ATTENDING SURGEON: Dr. Felix Luciano THREADER: Rosey Bah and Merlyn Dunlap PREOPERATIVE DIAGNOSES: Refractory ascites, hepatocellular carcinoma, alcohol abuse. POSTOPERATIVE DIAGNOSES: Refractory ascites, hepatocellular carcinoma, alcohol abuse. PROCEDURE: Ultrasound-guided peritoneal cavity cannulation fluoroscopic guided peritoneal cavity ascites catheter drainage placement. INDICATION: The patient is a 77-year-old male with hepatocellular carcinoma, alcohol abuse history and refractory ascites requiring multiple paracenteses. The patient will undergo placement of a peritoneal catheter for drainage of ascites. Risks, benefits, and alternative options were discussed with the patient. ANESTHESIA: Was local with 10 mL of 2% lidocaine mixed 0.5% Marcaine. FLUORO TIME: 0.1 minutes. CONTRAST: None. SPECIMEN: 3100 mL of ascites was drained. COMPLICATIONS: None. IMPLANT: Peritoneal catheter for drainage of ascites. PROCEDURE: The patient was taken to the angiography suite, placed supine on the angiography table and then prepped and draped in a standard surgical fashion. Ultrasound was used to evaluate the peritoneal cavity which was noted to be filled with ascites and the ultrasound used to guide placement of the needle into the peritoneal cavity and the region occupied by fluid. The wire was advanced through the needle which was then upsized to dilator. A catheter was placed in the peritoneal cavity and placed in the pelvis under fluoroscopic guidance. Catheter was then tunneled. Dressings were then applied. The patient tolerated the procedure well. All instrument, sponge and needle counts were correct at the end the case. There were no complications. Dr. Luciano was present for and directed the entire case. The patient was transferred to [facility] [address] [facility] and subsequent discharged in stable condition.
== END | disposition home or self-care (01) ==
LOC: M IRPRO 09:28
PROVIDERS: ATTEND Family Medicine
DX: C22.7 Other specified carcinomas of liver (principal); R18.8 Other ascites; F10.10 Alcohol abuse, uncomplicated
CPT/HCPCS: 49418; C1729